=== PATIENT | female | born 1930 | race Caucasian/White ===

== ENCOUNTER 2016-09-07 17:40 | Inpatient (IN) | payer MEDICARE ==
[~2016-09-07] VITALS: Ht 167.6 cm; Wt 60.6 kg
[~2016-09-07 17:40] MED LIST: ASCO100089 PO; ASPI-973 PO; ATRV10T PO; CLOP75TA28 PO; LISI-571 PO; LUTE20TA PO; MULT1CAP33 PO
[2016-09-07 17:49] VITALS: BP 157/60; PULSE 19; PULSE 69; RESP 19; O2SAT 96
--- NOTE | 2016-09-07 18:00 | ED.REPORT ---
HPI-Trauma Minor / Fall Date of Service Sep 07, 2016 ED Provider: Dr. 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 Per EMS report the patient had no LOC and has a large hematoma to her R occiput. Pt reports headache but denies neck pain and extremity pain. History limited due to dementia. Nursing Notes Stated Complaint: FALL Chief Complaint: Multiple Trauma/Fall Nursing Notes Reviewed: Yes Allergies: Coded Allergies: Penicillins (Verified Allergy, Unknown, 12/02/14) Sulfa (Sulfonamide Antibiotics) (Verified Allergy, Unknown, UNKNOWN, ) Scheduled Ascorbic Acid (Vitamin C) 1,000 Mg Tab.chew 1,000 MG PO DAILY Aspirin (Aspirin) 81 Mg Tablet 81 MG PO DAILY Atorvastatin (Lipitor) 10 Mg Tab 10 MG PO DAILY Clopidogrel (Clopidogrel) 75 Mg Tablet 75 MG PO DAILY Lisinopril (Lisinopril) 5 Mg Tablet 5 MG PO HS Lutein (Lutein) 20 Mg Tablet 20 MG PO DAILY Multivitamin (Multivitamins) 1 Each Capsule 1 EACH PO DAILY General Time Seen by MD: 17:59 Chief Complaint Fall, Head injury Hx Obtained From: Patient, EMS Arrived By: Ambulance Onset Occurred: 16 - 30 minutes ago Symptom Duration: Since onset Context: Occurred at: Home injury Location: Head Quality: Painful Severity: Current: Moderate Associated with: Denies: Loss of consciousness, Neck pain, Shortness of breath Recent Healthcare: Recent hospitalization Risk Factors Head CT Imaging Inclusion Criteria: >/= 16 yo age GCS of 14 OR 15 Non Pentrating Injury Presentation w/in 24 hrs. Patient Presents WITHOUT: Loss of Conciousness, PROCEED W/ CONSIDERATIONS Consider Non Contrast CT for: >/= 60 yo Age RF Statements: Risk factors reviewed Past Medical History Past Medical History Dementia Anemia ST-segment elevation myocardial infarction hypertension Thrombocytopenia Past Surgical History Reports: Angioplasty, Cholecystectomy, Hysterectomy Smoking History Never Smoker Social History Alcohol Use: Denies alcohol use Drug Use: Denies drug use Other Social History: Good social support Ambulatory Status Independent Review of Systems Unable to Obtain ROS Mental status (Dementia) Musculoskeletal: Denies: Extremity pain, Neck pain Neurologic: Reports: Headache, Denies: Change LOC Physical Exam Initial Vital Signs Vital Signs (First) Date Time Temp Pulse Resp B/P Pulse Ox O2 Delivery O2 Flow Rate FiO2 09/07/16 17:49 36.8 69 19 157/60 96 Room Air Initial VS: Reviewed ENT: Mucous membranes moist, Conjunctiva normal, No scleral icterus Respiratory: Breath sounds normal, Clear to auscultation, No respiratory distress Cardiovascular: Regular rate & rhythm, Heart sounds normal, Intact distal pulses Abdomen / GI: Soft, Non-tender Skin: Warm, Dry, No cyanosis Psychiatric: Mood/affect normal, Behavior normal General/Constitutional: Awake, Alert Neck: Atraumatic Grimaces with palpation of neck. Head / Eyes: Normocephalic, PERRL Large R occipital hematoma. Back: Atraumatic, No midline vertebral tend Lower Extremity / Pelvis / MS: Atraumatic, Inspection NL, No swelling, Non- tender, No deformity, Neurologic intact, Vascular intact Neurologic: Speech NL, No motor deficits, No sensory deficits Hx of dementia Interpretation & Diagnostics Lab Results Interpretation Result Diagram: 09/07/16 1839 09/07/16 1839 Test 09/07/16 18:39 09/07/16 20:31 09/07/16 22:22 09/07/16 23:51 White Blood Count 8.6th/mm3 (3.8-10.1) Red Blood Count 3.81mil/mm3 (3.90-5.20) Hemoglobin 12.8g/dL (12.0-15.6) Hematocrit 38.6% (35.0-46.0) Mean Corpuscular Volume 101.3fL (81-100) Mean Corpuscular Hemoglobin 33.6pg (27.0-35.0) Mean Corpuscular Hemoglobin Concent 33.2% (32.0-37.0) Red Cell Distribution Width 12.8% (12.3-15.4) Platelet Count 133bil/L (150-400) Neutrophils (%) (Auto) 79.7% (40-74) Lymphocytes (%) (Auto) 9.8% (14-46) Monocytes (%) (Auto) 8.6% (4-12) Eosinophils (%) (Auto) 1.6% (0-5) Basophils (%) (Auto) 0.1% (0-3) Prothrombin Time 11.1sec (8.1-12.5) Prothromb Time International Ratio 1.04ratio Activated Partial Thromboplast Time 26.3sec (22.8-33.0) Sodium Level 140mEq/L (134-144) Potassium Level 4.1mEq/L (3.5-5.2) Chloride Level 103mEq/L (97-108) Carbon Dioxide Level 25mmol/L (18-29) Blood Urea Nitrogen 25mg/dL (8-27) Creatinine 1.05mg/dL (0.57-1.00) Estimat Glomerular Filtration Rate 72mL/min (>59) Glucose Level 107mg/dL (60-99) Calcium Level 9.0mg/dL (8.5-10.1) Total Bilirubin 0.2mg/dL (0.0-1.2) Aspartate Amino Transf (AST/SGOT) 15U/L (0-50) Alanine Aminotransferase (ALT/SGPT) 14U/L (0-32) Alkaline Phosphatase 66U/L (25-165) Total Protein 6.8g/dL (6.4-8.4) Albumin 3.7g/dL (3.4-5.0) Urine Color Yellow (YELLOW) Urine Appearance Clear (CLEAR,HAZY) Urine pH 6.5 (5.0-8.0) Urine Specific [place] 1.020 (1.003-1.035) Urine Protein Negativemg/dL (NEG,TRACE) Urine Glucose (UA) Negativemg/dL (NEGATIVE) Urine Ketones Negativemg/dL (NEGATIVE) Urine Occult Blood Negative (NEGATIVE) Urine Nitrite Negative (NEGATIVE) Urine Bilirubin Negative (NEGATIVE) Urine Urobilinogen Normalmg/dL (NORMAL) Urine Leukocyte Esterase Negative (NEGATIVE) Urine RBC 0-2/hpf (0-2) Urine WBC 0-5/hpf (0-5) Urine Epithelial Cells Occasional/hpf (NONE-MOD) Urine Crystals None seen (NONE SEEN) Urine Bacteria None/hpf (NONE-FEW) Urine Hyaline Casts None/lpf (NONE) Urine Granular Casts None seen (NONE SEEN) Urine Waxy Casts None seen (NONE SEEN) Urine Red Blood Cell Casts None seen (NONE SEEN) Urine White Blood Cell Casts None seen (NONE SEEN) Urine Mucus None seen (None Seen) Urine Trichomonas None seen (NONE SEEN) Urine Yeast None (NONE SEEN) Urinalysis Comment None Urine Culture Reflexed Not indicated Troponin T 0.042ug/L (0.0-0.011) Total Creatine Kinase 78U/L (21-215) Creatine Kinase MB 4.4ng/mL (0.0-5.3) Creatine Kinase MB % % (0.0-5.0) General Lab Results Interp 1: Labs reviewed Pulse Oximetry Interpretation Pulse Oximetry: Pulse Ox normal (96), On room air ECG Interpretation ECG Interpretation: ST elevation of 1 mm in lead III. Global T wave inversion and ST depression new from prior ECG 04/27/16. Time: 21:33 Interpreted by: ED physician Normal ECG Interpretation: Normal rate (80), Normal sinus rhythm ECG Interpretation: NSR with a rate of 82. ST elevation in lead III. Voltage criteria for STEMI still not met. Whole clinical picture still suspicious for cardiac event. Time: 23:03 Interpreted by: ED physician X-Ray Chest Interpretation View: Portable, 1 view Interpretation / Wet Read by: Wet read ED physician NL X-Ray Chest Findings: No acute disease (`) X-Ray Interpretation X-Ray Ordered: Hip left Interpretation / Wet Read by: Wet read ED physician Interpretation: Normal exam, No fracture/dislocation CT Head Interpretation CT Head Impression: 1. No acute intrcranial process. 2. Moderate atrophy and chronic microvascular ischemic changes. Study: Head CT no contrast Interpretation / Wet Read by: Interpret - ED physician CT C-Spine Interpretation CT C-spine Impression: 1. No visualized fracture. Study type: CT no contrast Interpretation / Wet Read by: Interpret - Radiologist Re-Eval/Medical Decision Med Decision/Clinical Course By all accounts aside from the fact that she is not having chest pain Mrs. Quintero is having an acute myocardial infarction. She has ST elevation in lead 3 as well as AVR. She has impressive ST depression/reciprocal changes in V5 V6 1 and aVL. Her troponin is trending up. What complicates this is that she is having absolutely no chest pain. However you can certainly have silent myocardial ischemia. I have been in constant communication with Dr. Meléndez. I have faxed him several EKGs as well as the troponin trends. The plan now is to admit her to the ICU. ICU recommended due to the fact that she sustained rather significant blunt head injury and she has a subcutaneous hematoma and were going to start her on heparin. We are going to hold off on Plavix because she did fall and hit her head as described. We will give her aspirin. Her troponin is going to be trended throughout the night. Dr. Meléndez will be made aware of the troponins. I consulted with our hospitalist Dr. Lobato. She has accepted Mrs. Quintero for admission. Source of Hx: Old records Re-Evaluation/Progress #1: Time of Eval: 20:44 Re-Evaluation/Progress Note: Pt unable to walk. Awaiting UA and ECG. Re-Evaluation/Progress #2: Time of Eval: 21:49 Re-Evaluation/Progress Note: Pt's is now in the room. He states that she fell hard on her L hip. Pt with TTP of L hip. Updated of ECG findings. Pt denies any chest pain. Re-Evaluation/Progress #3: Time of Eval: 22:12 Re-Evaluation/Progress Note: Pt's now reports that the patient has been seen by her PCP for exertional CP. He believes that the fall today was a mechanical fall. Consultation #1: Referral / Consult Name: Dusty Meléndez MD Consulted With: Cardiology Call Returned at: 21:49 Senior Android Software Engineer: Will see patient, Agrees with plan Consultation #2: Referral / Consult Name: Dusty Meléndez MD Consulted With: Cardiology Call Returned at: 12:41 Note: Heparin, ASA plan, repeat trop and call back Consultation #3: Referral / Consult Name: Dusty Meléndez MD Consulted With: Cardiology Call Returned at: 23:30 Note: Trop has returned. Admit to ICU repeat trop in 4 hours and have hospitalist call with results. Consultation #4: Referral / Consult Name: Angie Lobato DO Consulted With: Hospitalist Call Returned at: 23:33 Senior Android Software Engineer: Will see patient, Agrees with eval, Agrees with plan, Accepts admit Counseled Regarding: Diagnosis, Lab results, Need for admission Discharge & Departure Impression: Primary Impression: Acute coronary syndrome Additional Impressions: Weakness generalized Scalp contusion Encounter type: initial encounter Qualified Code: S00.03XA - Contusion of scalp, initial encounter Fall from ground level Blunt head trauma Encounter type: initial encounter Qualified Code: S09.8XXA - Other specified injuries of head, initial encounter Disposition: ADMITTED TO HOSPITAL Discharge Condition All VS Reviewed: Yes Referrals: Manny Montana MD (PCP) Crit Care Except Billable Proc Time Spent: 30-74 minutes Services Performed: Patient management by me, Time spent at bedside, Reviewing test results, Reviewing imaging, Discussing patient care, Documentation in record, Time with fam/surrogate Scribe Attestation Portions of this note were transcribed by Mindy Quintero. I, (Dr. Candelario) personally performed the history, physical exam and medical decision-making; I reviewed and confirmed the accuracy of the information in the transcribed note. Signed by: Mindy Quintero. Shanell, 09/07/16, [id number] copies to: Manny Montana MD, Todd P DO Sep 07, 2016 18:00 Mindy Quintero Sep 07, 2016 18:08
[2016-09-07 18:58] LABS: BASOPHILS % (AUTO) 0.1 % (0-3); EOSINOPHILS % (AUTO) 1.6 % (0-5); MONOCYTES % (AUTO) 8.6 % (4-12); Mean Corpuscular Hemoglobin 33.6 pg (27.0-35.0); Mean Corpuscular Volume 101.3 fL (81-100); NEUTROPHILS % (AUTO) 79.7 % (40-74); Platelet Count 133 bil/L (150-400)
[2016-09-07 19:15] LABS: INR 1.04 ratio
[2016-09-07 20:00] VITALS: PULSE 73; RESP 18; O2SAT 97
[2016-09-07 20:50] LABS: APPEARANCE,URINE CLEAR (CLEAR,HAZY); COLOR,URINE YELLOW (YELLOW); OCCULT BLOOD,URINE NEGATIVE (NEGATIVE); PH,URINE 6.5 (5.0-8.0); UROBILINOGEN,URINE NORMAL (NORMAL)
[2016-09-07 21:00] VITALS: PULSE 77; RESP 16; O2SAT 99
[2016-09-07 22:20] VITALS: BP 141/77; PULSE 80; RESP 16; O2SAT 99
[2016-09-07] MEDS ORDERED: Heparin 5,000 Unit/mL Inj IVPUSH PRN (22:45)
[2016-09-07] MEDS ORDERED: Heparin 5,000 Unit/mL Inj IVPUSH ONE (22:45)
[2016-09-07] MEDS: Heparin 25K Unit/500mL 0.45 NS 25,000 UNIT in IV Premix 1 EACH IV SCH (23:16)
[2016-09-07] MEDS ORDERED: Alum-Mag Hydrox-Simeth 30 mL Suspension PO PRN (23:45)
[2016-09-07] MEDS ORDERED: Ondansetron 2 mg/mL 2 mL Inj IVPUSH PRN (23:45)
[2016-09-07] MEDS ORDERED: Senna-Docusate 8.6-50 mg Tablet PO PRN (23:45)
[2016-09-07] MEDS ORDERED: Acetaminophen IV 1,000 MG in IV Premix 1 EACH IV PRN (23:45)
[2016-09-07] MEDS ORDERED: Polyethylene Glycol (PEG) 17 Gm Powder PO PRN (23:45)
[2016-09-07 23:47] VITALS: BP 142/66; PULSE 69; RESP 16; O2SAT 99
[2016-09-08] VITALS (8 sets, daily range): BP systolic 113–137; BP diastolic 52–87; PULSE 58–103; RESP 15–21; O2SAT 96–100
[2016-09-08 00:43] LABS: Creatine Kinase 78 U/L (21-215)
--- NOTE | 2016-09-08 01:41 | PCM.HPMED ---
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 Per , patient appears to have tripped on the edge of carpet, while he was looking away. Patient did not express head pain or chest pain. noticed blood on her neck and realized she had hit her head, decided to call EMS. denies any change in mental status after realizing she had fallen. Per EMS report the patient had no LOC and has a large hematoma to her R occiput. Patient had complained of some left leg pain and head pain in ED, although at time of this interview, she denies having any headaches, leg pain or chest pain. History is limited to husbands recollection of events, due to patient not able to recall incident. not aware of any cardiology follow up after last discharge. Patient was recently seen by her PCP on 08/29, no mention of cardiology appointment. In the ED, vitals: T36.8, P69, R19, BP157/60, 96% on RA. Labs significant for troponin 0.035, creatinine 1.05. UA, CXR, CT head negative. Xray of left hip with no fractures. 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 Dr. Meléndez to be called with any significant findings. Review of Systems: Comprehensive ROS all negative otherwise noted in HPI. Allergies Coded Allergies: Penicillins (Verified Allergy, Unknown, 12/02/14) Sulfa (Sulfonamide Antibiotics) (Verified Allergy, Unknown, UNKNOWN, ) Home Medications Ascorbic Acid (Vitamin C) 1,000 Mg Tab.chew 1,000 MG PO DAILY Aspirin (Aspirin) 81 Mg Tablet 81 MG PO DAILY Atorvastatin (Lipitor) 10 Mg Tab 10 MG PO DAILY Clopidogrel (Clopidogrel) 75 Mg Tablet 75 MG PO DAILY Lisinopril (Lisinopril) 5 Mg Tablet 5 MG PO HS Lutein (Lutein) 20 Mg Tablet 20 MG PO DAILY Multivitamin (Multivitamins) 1 Each Capsule 1 EACH PO DAILY PMH Dementia Anemia ST-segment elevation myocardial infarction hypertension Thrombocytopenia Surgical History Angioplasty Cholecystectomy Hysterectomy Family History Father and sister with heart issues Social History Hx Alcohol Use: No Hx Substance Use: No Hx Tobacco Use: No Smoking Status: Never Smoker Living Arrangement: with Family Exam Vital Signs Vital Sign - Last Date Time Temp Pulse Resp B/P Pulse Ox O2 Delivery O2 Flow Rate FiO2 09/07/16 23:47 69 16 142/66 99 Room Air 09/07/16 17:49 36.8 Exam GEN: Alert oriented only to self. No acute distress. HEENT: Right occipital hematoma, no tenderness to palpation, PERRL, EOMI, sclera anicteric, normal conjunctiva, Moist mucous membranes Neck: Supple with good ROM, no posterior midline tenderness Lungs: CTAB, breath sounds bilaterally, in no respiratory distress CV: RRR, normal S1, S2, no murmurs, rubs or gallops, peripheral pulses intact ABD: Soft, non-tender, normal active bowel tones MSK:No midline tenderness. Ext: No swelling, no edema Skin: Warm, dry and intact. No cyanosis. Large area of ecchymosis on right base of thumb, ecchymosis on left knee, old ecchymosis on posterior left hip Neuro: Dysarthria. 5/5 strength and sensation intact throughout lower extremities Psych: Normal mood and affect. Lab and Diagnostics Result Diagram: 09/07/16 1839 09/07/16 1839 X-Rays, CTs and MRIs DATE OF SERVICE: 04/27/16 0741 PROCEDURE: X-RAY CHEST ONE VIEW, PORTABLE ([id number]) IMPRESSION: No acute pulmonary process. Dictated by: Elizabeth Joseph M.D. on 04/27/2016 at 8:46 DATE OF SERVICE: 04/28/16 1306 PROCEDURE: CT BRAIN WITHOUT CONTRAST ([id number]) INDICATIONS: Fall; struck the back of her head IMPRESSION: 1. No acute intracranial finding. 2. Findings likely associated with chronic microvascular ischemic changes. Dictated by: Ela Woods M.D. on 04/28/2016 at 13:44 X-Ray Ordered: Hip left Interpretation / Wet Read by: Wet read ED physician Interpretation: Normal exam, No fracture/dislocation CT C-spine Impression: 1. No visualized fracture. Study type: CT no contrast Interpretation / Wet Read by: Interpret - Radiologist 12-lead ECG ECG Interpretation: ST elevation of 1 mm in lead III. Global T wave inversion and ST depression new from prior ECG 04/27/16. Time: 21:33 Interpreted by: ED physician Normal ECG Interpretation: Normal rate (80), Normal sinus rhythm ECG Interpretation: NSR with a rate of 82. ST elevation in lead III. Voltage criteria for STEMI still not met. Whole clinical picture still suspicious for cardiac event. Time: 23:03 Interpreted by: ED physician Assessment & Plan Patient is a 85 year old female with a history of dementia, anemia, hypertension , thrombocytopenia, a recent hospitalization 04/30/16 due to STEMI on dual antiplatelet therapy, who presents to the ED via EMS with head injury following a GLF at home. STEMI, present on admission. Acute. - Plavix and ASA held due to head hematoma, on heparin gtt - telemetry - NPO - Cardiology, Dr. Meléndez following and recommends CCU status based on elevated troponin and ECG findings - Trend troponin (next one to be at 2:30am with repeat ECG) - Repeat ECG at 2:30 am pending - Possible catheterization based on above findings - hgba1c pending, lipid panel as per EMR 04/2016 - cont statin Elevated troponin, present on admission. Acute. - initially at 0.035, now 0.042, CKMB 44 - trending as above Head hematoma, present on admission. Acute. - CT head negative for any acute process - Plavix and ASA held - monitor closely for worsening of hematoma due to being on heparin gtt Acute kidney injury, present on admission. Acute. - baseline creatinine 0.8 - lisinopril held - repeat BMP in am Advanced dementia, present on admission. Stable. - UA, CT head negative - DDx: Alzheimer's, vascular, Lewy body and Pick - Sister with Pick's disease, patient has not been diagnosed formally by a neurologist, family to seek neurology consult as an outpatient from PCP - patient not currently under therapy Macrocytosis, present on admission. Unknown acuity. - repeat CBC in am Hx of STEMI - continue atorvastatin - lisinopril held due to acute kidney injury DVT prophy: Heparin gtt GI prophy: not indicated CODE STATUS: FULL Dispo: Patient will be admitted with inpatient status with expectation of inpatient therapy for more than 2 midnights. Pain Evaluation: Adequate Pain Control VTE Prophylaxis: Other (Heparin ggt) Resuscitation Status: CPR: Attempt Resuscitation Attending Statement The patient was seen and examined together with house staff on 09/08/2016 and I agree with the history, exam and plan as outlined in the note above. Malaika Morel DO Sep 08, 2016 00:05 Angie Lobato DO Sep 08, 2016 03:09
--- NOTE | 2016-09-08 04:49 | NUR ---
admit note pt admit done per admit rn, pt alert, coop most of shift, pleasant, navarro weakly, pt knows her first name but not last name/place/year, pt laughs when asked a question she does not know the answer to, pt coop until approx 0400 after attempting to void per bp per br orders, pt unable to void, pt noted to have pulled out her saline lock and had feet hanging over side of bed, pt stated she had to void, pt bleeding from saline lock site cleaned up and pt helped to [facility] where she was able to void, depends on, pt denies cp, tele= sb/sr, occ WAP noted, three episodes of hr up to 130's, self resolving and pt asymptomatic, bp stable, denies n/v, npo, bt present, no bm, denies sob, ls-cl, ra sats upper 90's, resp rate in teens, heparin gtt per cardiac protocol, pt came in with bruised to left thumb, left elbow, left knee, right eye and right inner thigh, mrsa swab sent to lab, resident and desolderer aware of pt's rhythm, ekg's, and lab results-especially troponin and ck/ckmb, see ccu flow sheet, cont monitoring, plan:npo, am ck/ckmb/trop/ekg Addendum: 09/08/16 at 0505 by KIRT MATHEW RN safety frequent checks per rn, bed alarm on,
[2016-09-08 05:30] LABS: BASOPHILS % (AUTO) 0.2 % (0-3); EOSINOPHILS % (AUTO) 0.2 % (0-5); MONOCYTES % (AUTO) 9.7 % (4-12); Mean Corpuscular Hemoglobin 33.5 pg (27.0-35.0); Mean Corpuscular Volume 100.6 fL (81-100); NEUTROPHILS % (AUTO) 74.6 % (40-74); Platelet Count 133 bil/L (150-400)
[2016-09-08 06:00] LABS: TROPONIN T 0.18 ug/L (0.0-0.011)
--- NOTE | 2016-09-08 06:25 | NUR ---
am labs/ekg lab support technician aware of cardiac enzyme, troponin and ekg results, no new orders, no c/o cp per pt, pt's neuros remain the same all night- at baseline, see previous note,
--- NOTE | 2016-09-08 12:03 | PCM.PNMED ---
Subjective Date of Service Sep 08, 2016 Subjective - Pt seen and examined bed side. She is not in distress. AAO x 1 - Denies chest pain, shortness of breath. Exam Vital Signs Vital Sign - Last Date Time Temp Pulse Resp B/P Pulse Ox O2 Delivery O2 Flow Rate FiO2 09/08/16 08:00 36.6 58 15 116/62 100 Room Air Intake and Output 09/07/16 09/07/16 09/08/16 Cumulative From/Thru 15:00 23:00 07:00 09/07/16 17:49 - 09/08/16 05:03 Intake Total 72 ml 72 ml Output Total 350 ml 350 ml Balance -278 ml -278 ml Intake Oral 0 ml 0 ml IV Total 72 ml 72 ml Output Urine Total 350 ml 350 ml # Bowel Movements 0 0 Exam GEN: Alert oriented only to self. No acute distress. HEENT: Right occipital hematoma, no tenderness to palpation, PERRL, EOMI, sclera anicteric, normal conjunctiva, Moist mucous membranes Neck: Supple with good ROM, no posterior midline tenderness Lungs: CTAB, breath sounds bilaterally, in no respiratory distress CV: RRR, normal S1, S2, no murmurs, rubs or gallops, peripheral pulses intact ABD: Soft, non-tender, normal active bowel tones MSK:No midline tenderness. Ext: No swelling, no edema Skin: Warm, dry and intact. No cyanosis. Large area of ecchymosis on right base of thumb, ecchymosis on left knee, old ecchymosis on posterior left hip Neuro: Dysarthria. 5/5 strength and sensation intact throughout lower extremities Psych: Normal mood and affect. IVs and Medications Medications Reviewed: Medications were reviewed in detail Lab and Diagnostics Result Diagram: 09/08/16 0510 09/08/16 0230 X-Rays, CTs and MRIs DATE OF SERVICE: 04/27/16 0741 PROCEDURE: X-RAY CHEST ONE VIEW, PORTABLE ([id number]) IMPRESSION: No acute pulmonary process. Dictated by: Elizabeth Joseph M.D. on 04/27/2016 at 8:46 DATE OF SERVICE: 04/28/16 1306 PROCEDURE: CT BRAIN WITHOUT CONTRAST ([id number]) INDICATIONS: Fall; struck the back of her head IMPRESSION: 1. No acute intracranial finding. 2. Findings likely associated with chronic microvascular ischemic changes. Dictated by: Ela Woods M.D. on 04/28/2016 at 13:44 X-Ray Ordered: Hip left Interpretation / Wet Read by: Wet read ED physician Interpretation: Normal exam, No fracture/dislocation CT C-spine Impression: 1. No visualized fracture. Study type: CT no contrast Interpretation / Wet Read by: Interpret - Radiologist 12-lead ECG ECG Interpretation: ST elevation of 1 mm in lead III. Global T wave inversion and ST depression new from prior ECG 04/27/16. Time: 21:33 Interpreted by: ED physician Normal ECG Interpretation: Normal rate (80), Normal sinus rhythm ECG Interpretation: NSR with a rate of 82. ST elevation in lead III. Voltage criteria for STEMI still not met. Whole clinical picture still suspicious for cardiac event. Time: 23:03 Interpreted by: ED physician Assessment & Plan 85 year old female with a history of dementia, anemia, hypertension, thrombocytopenia, a recent hospitalization 04/30/16 due to STEMI on dual antiplatelet therapy, who presents to the ED via EMS with head injury following a GLF at home. STEMI, present on admission. Acute. - telemetry - Trend troponin (next one to be at 2:30am with repeat ECG) - Repeat ECG at 2:30 am pending - Discussed with Dr Meléndez. Started on Aspirin, and Plavis. No evidence of bleeding. Possible catheterization may be tomorrow. - cont statin Elevated troponin, present on admission. Acute. - Troponin trend: 0.18 <-- 0.134 <-- 0.042 <-- 0.035 - on Heparin drip Head hematoma, present on admission. Acute. - CT head negative for any acute process - Plavix and ASA restarted after discussing with Dr Meléndez. - monitor closely for worsening of hematoma due to being on heparin gtt Acute kidney injury, present on admission. Acute. - baseline creatinine 0.8 - lisinopril held - repeat BMP in am Advanced dementia, present on admission. Stable. - UA, CT head negative - DDx: Alzheimer's, vascular, Lewy body and Pick - Sister with Pick's disease, patient has not been diagnosed formally by a neurologist, family to seek neurology consult as an outpatient from PCP - patient not currently under therapy Hx of STEMI - continue atorvastatin - lisinopril held due to acute kidney injury DVT prophy: Heparin gtt GI prophy: not indicated CODE STATUS: FULL Dispo: Patient will be admitted with inpatient status with expectation of inpatient therapy for more than 2 midnights. Pain Evaluation: Adequate Pain Control GI Prophylaxis: Not indicated VTE Prophylaxis: Other (Heparin ggt) Resuscitation Status: CPR: Attempt Resuscitation Mahesh Campbell MD Sep 08, 2016 12:03
--- NOTE | 2016-09-08 15:12 | DRSVH ---
PROCEDURE: CT BRAIN WITHOUT CONTRAST ([id number]) INDICATIONS: fall, head injury TECHNIQUE: Noncontrast 4.5 mm thick angled axial sections acquired from the foramen magnum to the vertex, with c oronal reformats. COMPARISON: [facility], CT, CT BRAIN WO CON, 04/28/2016, 13:17. FINDINGS: Image quality: Excellent. CSF spaces: Basal cisterns are patent. No extra-axial fluid collections. The ventricles are symmet rojelio in size and shape. Brain: No intracranial bleeds or masses. There is cerebral volume loss for age, with resultant vent ricular and sulcal prominence. There are periventricular and deep white matter chronic small vessel ischemic changes. There is intracranial internal carotid artery atherosclerosis. Skull and face: Calvarium and visualized facial bones appear intact, without suspicious lesions. Sinuses: Visualized sinuses and mastoids are clear. IMPRESSION: 1. No acute intracranial process. 2. Moderate atrophy and chronic microvascular ischemic changes. Dictated by: Elizabeth Joseph M.D. on 09/07/2016 at 19:15 Approved by: Elizabeth Joseph M.D. on 09/07/2016 at 19:16
--- NOTE | 2016-09-08 15:12 | DRSVH ---
PROCEDURE: CT CERVICAL SPINE WITHOUT CONTRAST ([id number]) INDICATIONS: fall, head injury, dementia TECHNIQUE: Noncontrast 3 mm thick sections acquired from the skull base to the T4 level. Sagittal and coronal r eformats were then constructed. For radiation dose reduction, the following was used: automated exp osure control, adjustment of mA and/or kV according to patient size. COMPARISON: [facility], CT, CT BRAIN WO CON, 09/07/2016, 18:31. FINDINGS: Image quality: Excellent. Bones: No fractures or dislocations. Visualized superior ribs are intact. Soft tissues: Prevertebral soft tissues are normal in thickness. No paravertebral hematomas. No ap ical pneumothoraces. IMPRESSION: No visualized fracture. Dictated by: Elizabeth Joseph M.D. on 09/07/2016 at 19:13 Approved by: Elizabeth Joseph M.D. on 09/07/2016 at 19:15
--- NOTE | 2016-09-08 15:13 | DRSVH ---
PROCEDURE: X-RAY CHEST ONE VIEW, PORTABLE ([id number]) INDICATIONS: 85 old woman with chest pain and fall. TECHNIQUE: One view of the chest was acquired. COMPARISON: [facility], CR, XR CHEST 1VW (PORTABLE), 04/27/2016, 7:46. FINDINGS: Surgical changes and devices: None. Lungs and pleura: No pleural effusions or pneumothorax. Lungs are clear. Mediastinum: Mediastinal contours appear normal. Heart size is normal. Bones and chest wall: No suspicious bony lesions. Overlying soft tissues appear unremarkable. IMPRESSION: No acute cardiopulmonary disease. Dictated by: Darlene Langford M.D. on 09/08/2016 at 8:50 Approved by: Darlene Langford M.D. on 09/08/2016 at 8:52
--- NOTE | 2016-09-08 15:13 | DRSVH ---
PROCEDURE: X-RAY PELVIS W/LAT HIP (LT) ([id number]) INDICATIONS: fall, hip pain TECHNIQUE: AP pelvis with lateral view(s) of the left hip(s). COMPARISON: None. FINDINGS: Bones: No fractures or dislocations. Pelvic ring appears intact. No suspicious bony lesions. Soft tissues: The visualized bowel gas pattern is normal. No suspicious soft tissue calcifications. IMPRESSION: No fracture or dislocation. If clinical symptoms persist or clinical suspicion for patho logy is high, a repeat examination in 7-10 days, or advanced imaging such as CT or MRI is suggested f or further evaluation. Dictated by: Darlene Langford M.D. on 09/08/2016 at 8:48 Approved by: Darlene Langford M.D. on 09/08/2016 at 8:50
--- NOTE | 2016-09-08 15:15 | DRSVH ---
[facility] [address] [place] [address] Echocardiogram Report Name: MIKI SAENZ Siva e: 09/08/2016 Height: 66 in Hospital Exam Location: [facility] Weight: 13 3 lb Gender: Female BSA: 1.7 m2 : 1930 Age: 85 yrs BP: 116/62 mmHg Reason For Study: CAD Ordering Physician: HOSPITALIST [facility] Performed By: Oma Farris Referring Physician: Dr. Manny Montana Interpretation Summary Left ventricular systolic function is moderate to severely reduced. Left ventricular ejection fraction is estimated to be 25%. Compared to the prior exam, left ventricular function is significantly decreased. There is a large sized apical, septal, anteroseptal, inferior, and posterior wall motion abnormality with hypokinesis to akinesis of the segments. There are new LV wall motion abnormalities. Assessment of diastolic parameters suggests a pseudonormalization pattern, consistent with elevated filling pressures. The right ventricle grossly appears normal in size with probable normal systolic function. The left atrium is mildly dilated. Right atrial size is normal. There is mild to moderate mitral regurgitation. Compared to the prior echo study, there has been an increase in the severity of mitral regurgitation. There is no other significant valvular heart disease. The aortic root is normal size. Procedure: A two-dimensional transthoracic echocardiogram with color flow and Doppler was performed. The study quality was technically good. Comparison is made with the echocardiogram of 04-29-16. The heart rate ranged between 56 -68 bpm during the study. Left Ventricle: The left ventricle is normal in size. There is normal left ventricular wall thickness. Left ventricular systolic function is moderate to severely reduced. Left ventricular ejection fraction is estimated to be 25%. Compared to the prior exam, left ventricular function is significantly decreased. There is a large sized apical, septal, anteroseptal, inferior, and posterior wall motion abnormality with hypokinesis to akinesis of the segments. There are new LV wall motion abnormalities. Assessment of diastolic parameters suggests a pseudonormalization pattern, consistent with elevated filling pressures. Right Ventricle: The right ventricle grossly appears normal in size with probable normal systolic function. Atria: The left atrium is mildly dilated. Right atrial size is normal. The interatrial septum is intact with no evidence for an atrial septal defect. Mitral Valve: The mitral valve is grossly normal. There is mild to moderate mitral regurgitation. Compared to the prior echo study, there has been an increase in the severity of mitral regurgitation. Aortic Valve: The aortic valve opens well. There is trace aortic regurgitation. Tricuspid Valve: The tricuspid valve is normal in structure and function. No tricuspid regurgitation. Pulmonic Valve: The pulmonic valve is not well visualized. There is trace pulmonic regurgitation. There is no other significant valvular heart disease. Great Vessels: The aortic root is normal size. The dimensions of the ascending aorta are normal. The IVC is of normal diameter and collapses greater than 50% with a sniff. This suggests a low right atrial pressure of 3 mm Hg. Pericardium/ Pleura There is no pericardial effusion. There is no pleural effusion. I WMSI = 1.94 % Normal = 38 There is a la rge sized apical, septal, anteroseptal, inferior, and posterior wall motion abnormality w ith hypokinesis to akinesis of t he segments. Segments Size X - Cannot 1 - Normal 2 - 3 - Akinetic 4 - 1-2 small Interpret Hypokinetic Dyskinetic 3-5 moder ate 5 - 6-14 large Aneurysmal 15-16 diffu se MMode/2D Measurements & Calculations LVIDd: 5.3 cm LA dimension: 3.5 cm RA long axis: 4.6 cm Ao root diam LVIDs: 4.6 cm LA A2 area: 18.9 cm RA area: 14.9 cm FS: 14.1 % RA vol: 41.3 ml Aortic Jxn: 2.4 cm IVSd: 0.97 cm LA A4 area: 18.0 cm asc Aorta Diam LVPWd: 0.70 cmLA length (vol) RA : 24.6 ml/m RVDd major: 4.3 cm Ao Arch Diam (Prox LA vol: 58.1 ml Trans): 2.7 cm LA vol index IVC diam: 1.6 cm EDV(MOD-sp2) LV quiñones. diameter/BSA LV sys. diameter/BSA RVD1 (basal) : 114.9 ml (cm/m^2): 3.2 (cm/m^2): 2.7 : 3.6 cm RVD2 (mid) : 2.9 cm Doppler Measurements & Calculations Ao V2 max MV E max jg MV E/A: 1.0 PA V2 max : 132.5 cm/sec : 75.2 cm/sec Med Peak E' Jg : 66.4 cm/sec Ao max PG MV A max jg PA mean PG : 7.0 mmHg : 72.5 cm/sec E/E' med: 21.0 Ao mean PG MV P1/2t: 45.9 msec Lat Peak E' Jg PA Accel Time : 3.5 mmHg : 0.19 sec E/E' lat: 10.8 E/e' average: 15.9 MV A dur: 0.12 sec MV dec time MV P1/2t max jg Ao V2 mean PA V2 mean : 0.15 sec : 85.5 cm/sec : 48.4 cm/sec MVA(P1/2t): 4.8 cm2 Ao V2 VTI: 30.8 cm Reading Physician:YESI
--- NOTE | 2016-09-08 16:06 | NUR ---
Social Work: Assessment. D&A: See initial assessment. SHIPPING WEIGHER reviewed EMR, which states pr is at [facility] with non-stemi ACS fall. Pt primary insurance is [employer]; PCP is Manny Montana MD. Pt readmit score has not yet been assessed. SHIPPING WEIGHER met with pt and family at bedside and explained SHIPPING WEIGHER role. Pt georgiana reports that they lives in a modular home with 2 external steps and no internal steps. Pt uses a walker and a cane at base and relies on family for transportation. Pt's is her primary caregiver; there is local family support, if needed. Pt does not endorse any hx of SNF admission; pt has had H.H. with [facility] and does not wish to use this provider again. Pt and family provided with SNF/ H.H. choice list. P: Developing. SHIPPING WEIGHER to follow for d/c planning including SNF/ H.H. referral and additional needs. ELAINE Bravo Addendum: 09/08/16 at 1611 by BRIAN RITCHIE Amended: Links added.
--- NOTE | 2016-09-08 17:10 | NUR ---
Mentation/Tele/output/Activity Patient follows commands, but only oriented to name. Her speech is sometimes unintelligible-- this is not new. Tele has been SB-SR, 50s-70s. Denies chest pain. Plavix and ASA given as ordered. Cardiac Heparin gtt running per protocol. Voiding per BSC. Patient is unable to void on bedpan. 2 person assist to BSC. Patient is weak. Adjusting self in bed, but assisting to turn. Spouse and daughters at bedside, updated on care. Continuing with POC.
--- NOTE | 2016-09-08 20:33 | CONS ---
[address] [address] CONSULTATION REPORT PATIENT: MIKI SAENZ I : 1930 MR#: [id number] ADMIT: 09/08/2016 JOB ID: [id number] CARDIOLOGY CONSULTATION NOTE--INITIAL INPATIENT EVALUATION: DATE OF EVALUATION: Thursday, September 08, 2016. CONSULTING PHYSICIAN: Cardiology--Dusty Meléndez MD. PROBLEMS: 1. Fall (trauma). a. Presented to emergency department, September 07, 2016, after apparent mechanical fall (tripped on carpet). b. Contusion, right periorbital; and left occipital scalp hematoma. 2. Acute coronary syndrome (ACS). a. No chest pain. b. Abnormal ECG--Atypical ECG; and note incidental finding on admission ECG when patient admitted for weakness. c. Elevated troponin. 3. Coronary artery disease (CAD). a. STEMI--acute inferior myocardial infarction, April 27, 2016, b. PCI (April 27, 2016)--occluded culprit mid RCA. Revascularized with distal bare-metal stent, 2.5 x 23; and proximal stent, 2.75 x 23; and note residual lesions and severely diffusely diseased RCA. c. CHF-Csguh-Hjzitb CAD, including severely diffusely diseased LAD (functionally occluded with JOEL-1 flow); and 80% proximal circumflex LCX lesion. CORONARY ARTERY DISEASE RISK FACTORS: 1. Hypertension. 2. No history of diabetes. 3. No history of treated hyperlipidemia--On statin after April. 4. Nonsmoker. 5. No family history of premature coronary disease. OTHER PROBLEMS: Alzheimer's Disease--Severe; but she lives independently with and walking, go outside the house. CHIEF COMPLAINT: Called by the Emergency Department because of abnormal ECG. HISTORY OF PRESENT ILLNESS: EMERGENCY DEPARTMENT COURSE: I was called initially by the Emergency Department about this 85-year-old woman after she presented last night and was evaluated after a fall. The relates clearly that it appeared to be a mechanical fall, not syncope. She tripped when she turned in the kitchen and tripped over a "strip" between the linoleum floor and the carpet. She was not unconscious. She hurt her left hip, her right periorbital area and her right occiput. She came to the Emergency Department. 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 There was no chest pain, and no consideration of cardiac issues until an ECG was incidentally obtained as a routine admission test because she was to be admitted because too frail and weak to go home. ECG showed lateral ST depression with subtle inferior ST-elevation in lead LIII. Troponin was then evaluated and found to be slightly elevated. HOSPITAL COURSE: The patient was subsequently admitted to telemetry unit. She has had no chest pain, or other overt cardiac problems. PAST CARDIAC HISTORY: She has known CAD which first presented, April 27, 2016. At that time, she did have clear-cut chest discomfort and clear-cut inferior ST elevation. Initially, there was consideration of management options including because of her severe dementia. Ultimately, she was taken to the Catheterization Laboratory. The mid right coronary artery was occluded. Two bare-metal stents were placed and flow was reestablished in the artery. However, there was severe diffuse disease and residual lesions. Additionally, there was severe coronary disease involving the LAD diffusely; and the circumflex as well. She did well afterwards; and there was consideration of proceeding with intervention to attempt to open the severely diseased LAD. It appears she did not return to clinic; and she did well until several days before admission when she had a single episode of chest discomfort walking out of a [employer] store. She saw her primary doctor several days later who gave her nitroglycerin. She has not used NTG SL; nor had further chest discomfort. Regarding other possible underlying vascular disease, there is no history of CVA or current symptoms of TIA. No claudication. Regarding dual antiplatelet therapy, there was concern because of her recent trauma; but she appears to have remained on Plavix long term care administrator after the bare-metal stent with no problem. She and her report no current bleeding symptoms, no anticipated surgery; but there was initially some question of the ability to make sure of her having Plavix without fail, so bare-metal stents were used in April. ALLERGIES: 1. PENICILLIN. 2. SULFA. (Are reported) 3. LISINOPRIL--intolerance; she reports a dry cough has continued to take lisinopril. MEDICATIONS: 1. ASA 81 mg. 2. Plavix 75 mg--continued since bare metal stent. 3. Lipitor 10 mg daily. 4. Lisinopril 5 mg q.h.s. 5. Lutein 20 mg daily. 6. Multivitamin. 7. Ascorbic acid 1000 mg daily. PAST MEDICAL HISTORY: 1. History of thrombocytopenia without further details. 2. History of anemia. REVIEW OF SYSTEMS: I questioned her about a 13-point review of systems, which is unremarkable, and noncontributory, or negative except as noted, including: No history of thyroid disorder. No history of lung disorder including shortness of breath, asthma, or wheezing. He reports no GI disease including indigestion, ulcer, hepatitis or jaundice. Cardiac--The reports no symptoms of heart failure such as exertional dyspnea, nocturnal dyspnea, or edema. He reports no history of known arrhythmia, or symptoms of arrhythmia, such as tachy palpitations, presyncope, or syncope. She is minimally active physically beyond walking but apparently has no effort limitation, or effort-related symptoms. PERSONAL AND SOCIAL HISTORY: Cigarettes--lifetime nonsmoker. Alcohol-- reports she does not use alcohol currently. 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 Family--Her , daughters, and granddaughters are present. FAMILY HISTORY: Noncontributory regarding premature coronary disease. PHYSICAL EXAMINATION: General appearance: Pleasant elderly woman who is comfortable in the hospital room; and she has evident severe dementia. She is mumbling but pleasant. The family thinks she is not quite as alert here in the hospital as she has been generally. Vital signs: Blood pressure 120/52. Heart rate 60, regular, in sinus rhythm on telemetry. Respiratory rate 17 with O2 saturation 99% on room air. Afebrile. Weight 60.6 kg only. Neurologic and mental status: No overt focal neurologic defect noted. Affect is noted consistent with substantial dementia. HEENT: PERRL. Conjunctivae pink. Sclerae not icteric. Mouth and mucous membranes intact. Neck: Carotid upstroke intact bilaterally without bruit. Jugular venous pressure normal. No palpable thyromegaly. No palpable cervical lymphadenopathy. Lungs: Clear to auscultation bilaterally. Cardiac: No chest wall tenderness. Otherwise unremarkable cardiac examination with regular rhythm. S4. No loud murmur. Abdomen: Mildly obese and otherwise unremarkable examination without tenderness , mass, hepatosplenomegaly or bruit of abdominal aortic aneurysm. Extremities: No edema. Pedal pulses difficult to feel bilaterally. DIAGNOSTIC STUDIES: ELECTROCARDIOGRAM: The initial electrocardiogram shows sinus rhythm at [address]. There is mild [address] elevation in lead III and ST coving with less than [address]-elevation in lead aVF. There are inferior Q-waves consistent with a prior inferior infarction. The inferior leads are mostly resolved from her infarct, but in the medical record, I find no interim ECGs to indicate if these are residual changes. There is prominent anterolateral downsloping ischemic-appearing ST depression in leads L1, aVL and in lead V5, V6. On serial ECGs, the ST depression partially resolve; and the inferior ST changes resolve. Subsequent ECG shows diffuse inferolateral and anterolateral T-wave inversion including T-wave inversion V3 through V6. CHEST X-RAY reports no acute cardiopulmonary disease. LABORATORY: CBC includes WBC 8600 with hemoglobin 12.8, hematocrit 38.6, macrocytosis with MCV 101.3 and low platelet count, 133,000. INR 1.04. Chemistries include potassium 4.3 with BUN 24, creatinine 7.78. BUN 24. LFT pending. Cardiac markers include total CK 71, rising to 232. Troponin 0.042, rising to 0.444. ECHOCARDIOGRAM: I reviewed the images of her Echocardiogram after PCI in April; and the current Echocardiogram. Currently there is severe LV dysfunction with estimated ejection fraction about 30%. There are wall motion abnormalities involving the septum, apex, and inferior galvez which are new since previously when overall ejection fraction was only mildly diminished with inferior wall motion defect. Anterior and Lateral wall motion is preserved. Previously there was pulmonary hypertension. Now not enough TR to estimate PA pressure. Valvular include mild to moderate MR and mild AR without aortic stenosis. CORONARY ANGIOGRAM: I reviewed the coronary angiogram from April 27, 2017. At that time, the mid RCA was occluded. There is severe disease. There are nefk-rc-dfwzz collaterals. There are also collaterals from the RCA to the distal LAD. The artery was revascularized but there are residual lesions. The LAD is severely diffusely diseased with severe proximal disease as well as functional occlusion with JOEL-2 flow distally due to multiple mid and distal LAD lesions. The circumflex has severe proximal lesion. ASSESSMENT: I discussed my findings, impressions, and management considerations extensively with the hospitalist team, with Cardiology, and with the family, including patient, and two daughters. 1. Fall: She appeared to have a mechanical fall that led to incidental evaluation of her current cardiac status. The fall appears to be mechanical and our best clinical assessment of the overall scenario is that her fall was not syncope, or primarily a cardiac event. 2. Acute coronary syndrome: Incidental ECG led to the finding of coronary disease, including apparent xpv-HE-rzlnwakmb myocardial infarction. Currently, she did have ST elevation which may have been residual from her prior infarction but cleared suggesting there was at least transient ST elevation; but the serial troponins did not suggest a large infarction at this time. The diffuse ST depression and T-wave inversion suggest ischemia in other coronary territories as well. The overall best interpretation of the clinical scenario suggests that this may be a secondary, "type 2" event related to her fall. She appears to have advanced end-stage coronary disease and now newly identified ischemic cardiomyopathy. She is at high risk including because of the severity of her coronary disease. Her management considerations are markedly affected by her frailty and severe dementia. We discussed options for treatment including medical treatment, consideration of intervention or surgery. I discussed this in the context of the wishes of the patient and her . We all agreed that surgery would not be a good consideration for her at this time. Additionally, the Distal LAD may not even be a good target for Bypass. We considered medication. This option would be best suited to her psychosocial situation, but she would be at substantial risk. Consideration of catheterization to define her anatomy and consideration of intervention would carry also substantial risk, including given the prior difficulties of working on her right coronary artery; and the diffuse disease of the LAD and the risk of her LV dysfunction. Overall, it was my impression that medical therapy would be the best option to pursue initially; and to reassess her progress that way. The family understand she is at high risk including for further symptoms, infarction, and risk to her life regardless of choice of treatment. The and the patient appeared most comfortable with the option of medical therapy at this time--indicating, "She is ready to go; she is going to [facility] include [facility] beds [facility] the [facility]." RECOMMENDATIONS: 1. Close ongoing monitoring. 2. Optimal medical therapy as discussed including maintain aspirin, maintain Plavix (including consideration of the risks of bleeding after her trauma that we discussed); statin; beta-derek if possible but note bradycardia. 3. Add long-acting nitrates carefully, and if well tolerated. 4. Reassess if she becomes symptomatic or deteriorates. 5. Encouraging in her scenario is the fact that there is no symptomatic chest pain which might be the primary reason to pursue a more aggressive approach at this time. 6. Your evaluation of her thrombocytopenia and any consideration of possible HIT. 7. Consider Palliative Care consultation. JAYRO
--- NOTE | 2016-09-08 23:07 | NUR ---
hear rate: pt.'s heart rate up to 145, pt. had emesis, zofran given, for about 30min pt's heart rate went back and forth between 60's and 140's, ekg obtained, pt. was in sinus rhythm 64, prolonged qt interval, old infarct, Dr. Lobato paged, stated to watch pt. and notify if heart rate stays above 70, heart rate currently not having anymore episodes of psvt, will cont. to monitor.
[2016-09-09] VITALS (9 sets, daily range): BP systolic 107–125; BP diastolic 48–81; PULSE 64–82; RESP 14–21; O2SAT 95–98
--- NOTE | 2016-09-09 03:16 | NUR ---
: pt. up to bedside commode twice, unable to void, bladder scanned for 570cc urine, paged hospitalist, received order for in and out cath. Addendum: 09/09/16 at 0339 by MARTHA MARIE RN cathed for 550cc jarad urine
[2016-09-09 05:59] LABS: TROPONIN T 0.392 ug/L (0.0-0.011)
[2016-09-09] MEDS: Heparin 25K Unit/500mL 0.45 NS 25,000 UNIT in IV Premix 1 EACH IV SCH (08:06)
--- NOTE | 2016-09-09 11:29 | NUR ---
Palliative Care Palliative Care received order from Dr Campbell 09/08/16 to assist with goals of care. Patient is an 85 year old woman with history of dementia, anemia, hypertension, thrombocytopenia and a recent hospitalization 04/30/16 due to STEMI. She was admitted 09/08/16 with head injury following a GLF at home. She is receiving care for STEMI. The Palliative Care Team saw patient when she was here in 04/2016. Patient lives at home with her . Royce () [phone] Carole (daughter) [phone] Palliative Care to follow. Louann Abad
--- NOTE | 2016-09-09 18:26 | PCM.PNMED ---
Subjective Date of Service Sep 09, 2016 Subjective 85-year-old woman with dementia presented after a benign fall at home with acute coronary syndrome. Patient is alert but cognitively impaired. She endorses no symptoms today. Exam Vital Signs Vital Sign - Last Date Time Temp Pulse Resp B/P Pulse Ox O2 Delivery O2 Flow Rate FiO2 09/09/16 16:02 36.7 65 18 115/54 98 Room Air Intake and Output 09/08/16 09/08/16 09/09/16 Cumulative From/Thru 15:00 23:00 07:00 09/07/16 17:49 - 09/09/16 06:08 Intake Total 479 ml 393 ml 944 ml Output Total 290 ml 550 ml 1190 ml Balance 189 ml -157 ml -246 ml Intake Oral 300 ml 200 ml 500 ml IV Total 179 ml 193 ml 444 ml Output Urine Total 290 ml 550 ml 1190 ml # Bowel Movements 3 3 Exam General: Elderly woman, no acute distress HEENT: sclerae anicteric, oral mucosa moist, no signs of trauma evident Neck: no apparent JVD Chest: Generally clear to auscultation, bibasilar crackles Cardiac: S1S2, other, no murmur Abdomen: BS normal, non-tender Extremities: edema Neuro: Alert and responsive but little thought content, cranial nerves symmetric , motor strength 5/5, coordination normal IVs and Medications Medications Reviewed: Medications were reviewed in detail Lab and Diagnostics Result Diagram: 09/09/16 0505 09/09/16 0505 X-Rays, CTs and MRIs DATE OF SERVICE: 04/27/16 0741 PROCEDURE: X-RAY CHEST ONE VIEW, PORTABLE ([id number]) IMPRESSION: No acute pulmonary process. Dictated by: Elizabeth Joseph M.D. on 04/27/2016 at 8:46 DATE OF SERVICE: 04/28/16 1306 PROCEDURE: CT BRAIN WITHOUT CONTRAST ([id number]) INDICATIONS: Fall; struck the back of her head IMPRESSION: 1. No acute intracranial finding. 2. Findings likely associated with chronic microvascular ischemic changes. Dictated by: Ela Woods M.D. on 04/28/2016 at 13:44 X-Ray Ordered: Hip left Interpretation / Wet Read by: Wet read ED physician Interpretation: Normal exam, No fracture/dislocation CT C-spine Impression: 1. No visualized fracture. Study type: CT no contrast Interpretation / Wet Read by: Interpret - Radiologist 12-lead ECG ECG Interpretation: ST elevation of 1 mm in lead III. Global T wave inversion and ST depression new from prior ECG 04/27/16. Time: 21:33 Interpreted by: ED physician Normal ECG Interpretation: Normal rate (80), Normal sinus rhythm ECG Interpretation: NSR with a rate of 82. ST elevation in lead III. Voltage criteria for STEMI still not met. Whole clinical picture still suspicious for cardiac event. Time: 23:03 Interpreted by: ED physician Assessment & Plan 85 year old female with a history of dementia, anemia, hypertension, thrombocytopenia, a recent hospitalization 04/30/16 due to STEMI on dual antiplatelet therapy, who presents to the ED via EMS with head injury following a GLF at home. # Acute coronary syndrome, present on admission. Acute. - Continue telemetry - Cardiology consult is following - Optimizing medical management; continuing heparin drip, clopidogrel, aspirin - We will initiate isosorbide at low dose and follow orthostatic symptoms in a.m. - cont statin # Head hematoma, present on admission. Acute. CT head negative for any acute process - Plavix and ASA restarted. # Acute kidney injury, present on admission. Acute. - baseline creatinine 0.8 - lisinopril held - repeat BMP in am # Advanced dementia, present on admission. Stable. - UA, CT head negative DVT prophy: Heparin gtt GI prophy: not indicated CODE STATUS: FULL Dispo: Likely 1-2 more days for optimization of medical management of ischemic coronary disease GI Prophylaxis: Not indicated VTE Prophylaxis: Other (Heparin ggt) Resuscitation Status: CPR: Attempt Resuscitation Time spent 35 minutes Bipin Blackwood MD Sep 09, 2016 18:26
--- NOTE | 2016-09-09 19:11 | NUR ---
Imdur This AM the charge nurse notified this nurse that Dr. Meléndez had spoken to her about "increasing" her Imdur and to monitor her blood pressures. Noted that no Imdur was on her eMAR and there were no new orders for Imdur either in her electronic or hard charts. Paged Dr. Meléndez for clarification at [phone]. There was no reply. Paged again at [phone]. Again there was no reply. Called the laborer general shortly after and was told he had just left. Called his cellphone about [phone] and he answered. Clarified that he wanted Imdur started and to monitor her blood pressures. Telephone order written and transmitted to her electronic chart. Care continues.
[2016-09-09] MEDS: Isosorbide Mononitrate 30 mg ER24 Tablet PO SCH (19:17)
--- NOTE | 2016-09-09 20:02 | PCM.CONPAL ---
Date of Service Sep 09, 2016 Date of Hospital Admission: Sep 08, 2016 at 00:05 Date of Palliative Consult: Sep 09, 2016 Requesting Provider: Mahesh Campbell MD Reason Palliative Care Consult: Goals of Care Discussion Hospital Unit @time of consult: [facility] Palliative Care Recommendation Summary of palliative recommendations: -Symptom management (Pain/other) -DPOA/Advanced Directives/POLST-Reviewed their goals referencing the POLST and discussion from 05/05. DNR/DNI and no feeding tube. states brought POLST to ER but now not available. Will need another completed before d/c -Family/emotional support- seems to have some alienation from her daughters. -Spiritual support-strong support from their faith Problems: End of Life Preferences and agreed by requesting DNR/DNI and no feeding tube. Goals of Care Hoping for SNF to strengthen then to return home recognizes getting close to point of not being able to care for his at home. Resuscitation Status Resuscitation Status: DNR/DNI:Do Not Resuscitate/Intubate POLST Updates/Changes Artificially Admin Nutrition: No Artifical Nutrition by Tube POLST Discussed with: Patient, Spouse/Other . 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 Per , patient appears to have tripped on the edge of carpet, while he was looking away. Patient did not express head pain or chest pain. noticed blood on her neck and realized she had hit her head, decided to call EMS. denies any change in mental status after realizing she had fallen. Per EMS report the patient had no LOC and has a large hematoma to her R occiput. Patient had complained of some left leg pain and head pain in ED, although at time of this interview, she denies having any headaches, leg pain or chest pain. History is limited to husbands recollection of events, due to patient not able to recall incident. not aware of any cardiology follow up after last discharge. Patient was recently seen by her PCP on 08/29, no mention of cardiology appointment. In the ED, vitals: T36.8, P69, R19, BP157/60, 96% on RA. Labs significant for troponin 0.035, creatinine 1.05. UA, CXR, CT head negative. Xray of left hip with no fractures. 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 Dr. Meléndez to be called with any significant findings. Palliative care note 85-year-old female patient with dementia could been living with her tripped and fell at home striking her arm and her head. She had significant leg pain but this was not addressed until they finished their dinner and she was able to walk to the table. Her brought her to the emergency room and she was admitted Patient has history of ischemic heart disease as above. She was seen by palliative care in April during that hospitalization. Neither patient nor her recall this. Echocardiogram obtained this admission notes LV EF of 30% The patient apparently has not had any further chest pain shortness of breath edema or orthopnea at home. Her does not identify difficulty with management at home. He feels he has adequate support primarily from his faith.. 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 He verbalizes distance from her 2 daughters. 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 PRN PRN IVPUSH; Start 09/07/16 at 22:45 Ondansetron HCl 4 to 8 mg Q4H PRN IVPUSH Last administered on 09/08/16t 22:43; Admin Dose 4 MG; Start 09/07/16 at 23:45 Acetaminophen/ Premix 100 ml @ 400 mls/hr Q6H PRN IV; Start 09/07/16 at 23:45 ; Stop 09/08/16 at 23:46; Status DC Senna 2 tablet BID PRN PO; Start 09/07/16 at 23:45 Al Hydrox/Mg Hydrox/Simethicone 30 ml Q6 PRN PO; Start 09/07/16 at 23:45 Polyethylene Glycol 17 gm DAILY PRN PO; Start 09/07/16 at 23:45 Atorvastatin Calcium 10 mg DAILY PO; Start 09/08/16 at 08:30; Stop 09/08/16 at 08:30; Status DC Atorvastatin Calcium 40 mg DAILY PO Last administered on 09/09/16 08:00; Admin Dose 40 MG; Start 09/08/16 at 08:30; Stop 09/09/16 at 16:36; Status DC Aspirin 81 mg DAILY PO Last administered on 09/09/16 08:00; Admin Dose 81 MG; Start 09/08/16 at 10:30 Clopidogrel Bisulfate 75 mg DAILY PO Last administered on 09/09/16 08:00; Admin Dose 75 MG; Start 09/08/16 at 10:30 Atorvastatin Calcium 40 mg DAILY PO; Start 09/10/16 at 08:30 Isosorbide Mononitrate 30 mg 0730 PO Last administered on 09/09/16 19:17; Admin Dose 30 MG; Start 09/09/16 at 18:40 Scheduled Ascorbic Acid (Vitamin C) 1,000 Mg Tab.chew 1,000 MG PO DAILY Aspirin (Aspirin) 81 Mg Tablet 81 MG PO DAILY Atorvastatin (Lipitor) 10 Mg Tab 10 MG PO DAILY Clopidogrel (Clopidogrel) 75 Mg Tablet 75 MG PO DAILY Lisinopril (Lisinopril) 5 Mg Tablet 5 MG PO HS Lutein (Lutein) 20 Mg Tablet 20 MG PO DAILY Multivitamin (Multivitamins) 1 Each Capsule 1 EACH PO DAILY Objective Findings Exam Vital Sign - Last Date Time Temp Pulse Resp B/P Pulse Ox O2 Delivery O2 Flow Rate FiO2 09/09/16 19:16 37.3 80 14 112/65 98 Room Air Intake and Output 09/08/16 09/08/16 09/09/16 Cumulative From/Thru 14:59 22:59 06:59 09/07/16 17:49 - 09/09/16 06:08 Intake Total 479 ml 393 ml 944 ml Output Total 290 ml 550 ml 1190 ml Balance 189 ml -157 ml -246 ml Intake Oral 300 ml 200 ml 500 ml IV Total 179 ml 193 ml 444 ml Output Urine Total 290 ml 550 ml 1190 ml # Bowel Movements 3 3 General: Alert, Oriented, Person HEENT: EOMI, Scleral Anicteric Heart: Regular Rate/Rhythm Lungs: Clear to Auscultation Abdomen: Bowel Tones x4, Soft Neuro: Cranial Nerve 3-12 Intact, Other (mild- mod expressive aphasia) Extremities: No Edema Lab/Diagnostics Lab and Imaging results reviewed in detail in EMR. Patient/Family Conference Discussion/Goals of Care Discussion FAMILY UNDERSTANDING OF DISEASE: DISEASE PROGRESSION/EVIDENCE OF DECLINE: SYMPTOM BURDEN: GOALS: HOPES/WORRIES: FAMILY WISHES/VALUES: Do you want to be told truth about his illness, even if unpleasant? Does family want to know prognosis when it can be predicted, to better guide treatment decisions? What is quality of life for the patient: to be able to interact with their loved ones and friends, to travel, not to be bedbound, to be independent in taking care of themselves: Would patient choose quality of life over quantity of life? Would comfort care be more important than being awake and alert? If patient is no longer alert and aware because of their illness, would you choose comfort for them? Palliative Care counselled: Time spent Total time 50 minutes; >50% face to face with patient and/or family, providing counselling regarding plans and recommendations, and in care coordination with his/her medical teams. I also spent an additional [ ] minutes counseling for advanced care planning with the patient/the patients family/the surrogate decision maker. copies to: Manny Montana MD, Jie Salazar MD Sep 09, 2016 20:02
--- NOTE | 2016-09-09 21:54 | PROG NOTE ---
[address] [address] PROGRESS NOTE PATIENT: MIKI SAENZ I : 1930 MR#: [id number] ADMIT: 09/08/2016 JOB ID: [id number] CARDIOLOGY CONSULTATION PROGRESS NOTE--FOLLOW-UP INPATIENT VISIT: DATE OF EVALUATION: Friday, September 09, 2016. CONSULTING PHYSICIAN: Cardiology--Dusty Meléndez MD PROBLEMS: 1. CAD. a. Severe three-vessel CAD. b. ACS--admitted after a fall, without chest pain but with transient ST elevation in lead III and transient severe lateral ST depression. c. Elevated troponin. 2. Mechanical fall. 3. Dementia--severe. HOSPITAL COURSE AND INTERIM PROGRESS: I saw this patient along with her on Cardiology rounds today, Friday, September 09, 2016. This 85-year-old woman was admitted because of weakness after a mechanical fall. An ECG, done incidentally, showed unexpected ST- elevation which might have been residual from her STEMI in April,, at which time, the occluded RCA was stented; but there were residual lesions. She also has severe three-vessel CAD. On this admission, she has remained clinically stable and without chest discomfort; but did develop elevated troponin; and only trivial elevation of CK total. We have discussed her status and management extensively regarding the high risk and poor prognosis of her underlying severe coronary disease, along with the risks of further efforts at Intervention, particularly in the setting of her severe dementia. Today, she tells me she is doing well. She seems much brighter and more alert. She has not been out of bed much. During the day, the nurses did get her out of bed and she requires two- person assistance but is doing reasonably well. It is not clear that she is yet back to her baseline where she can live in the home with her . No chest pain. RECOMMENDATION: 1. Medical therapy--We initiated long-acting nitrate with Imdur 30 mg today, to be monitored carefully, especially for hypotension and orthostasis. 2. If she does well clinically without chest pain or further clinical events, we will be reassured. We can consider intervention as needed in an ongoing manner. 3. Main focus now is re-ambulation. [facility]
[2016-09-10] VITALS (10 sets, daily range): BP systolic 107–140; BP diastolic 55–90; PULSE 71–119; RESP 20–24; O2SAT 96–98
[2016-09-10 04:11] LABS: BASOPHILS % (AUTO) 0.1 % (0-3); EOSINOPHILS % (AUTO) 3.1 % (0-5); MONOCYTES % (AUTO) 13.6 % (4-12); Mean Corpuscular Volume 100.6 fL (81-100); NEUTROPHILS % (AUTO) 70.6 % (40-74); Platelet Count 140 bil/L (150-400)
--- NOTE | 2016-09-10 06:37 | NUR ---
left ankle/leg pt up to BS with 2pa pt c/o left ankle/leg pain with activity, received order for one time dose of tylenol which was a little effective, pt unable to verbalize the discomfort in her ankle/leg but it shows on her face and her decreased mobility
--- NOTE | 2016-09-10 06:39 | NUR ---
PSVT pt SR around 0345 pt have runs of PSVT up to 160s then back to 70-80s for seconds at a time. pt denies any CP or nausea, this kept happening for about 25 minutes then resolved.
[2016-09-10] MEDS: Isosorbide Mononitrate 30 mg ER24 Tablet PO SCH (07:48)
--- NOTE | 2016-09-10 10:35 | NUR ---
Change in cardiac rhythm 10 to 30 second runs of SVT in the 160s while up to BSC, once resting pt returns to SR in the 80s with inverted t-waves & PACs & PVCs. Pt asymptomatic during episodes, denies chest discomfort. No reported nausea. Respirations unlabored. Unable to perform accurate orthostatics due to SVT. Continued complaints of left hip and ankle discomfort, unable to bear weight on left leg. Denies pain while lying in bed. Dr Blackwood notified of change in patient status, new orders given.
--- NOTE | 2016-09-10 10:39 | PCM.PALLBR ---
Palliative Care Recommendation Summary of palliative recommendations: -Symptom management (Pain/other) Pain-L ankle. is hoping for PT to eval. May need xray based on their eval. They could also determine if brace would be helpful as well as her ability to maneuver with a walker. Gait instability- states they have a walker but she doesn't want to use it. reviewed use now with acute injury as well as a repeat review of balance classes etc. GOC-- he hopes to be able to take her home rather than SNF. He is looking into alternate living situations for her. -DPOA/Advanced Directives/POLST-Reviewed their goals referencing the POLST and discussion from 05/05. DNR/DNI and no feeding tube. states brought POLST to ER but now not available. POLST completed today-and copied for EMR and for her --DNR/DNI, limited and no feeding tube--unchanged from the one in Apr. -Family/emotional support- seems to have some alienation from her daughters. Finances limited and he is hoping to see if he can get some resources through the [facility]--CM/SS notified of this. He could use assistance in negotiating with the [facility]--ie liason -Spiritual support-strong support from their taoist. Adventist is very important to both of them. Problems: End of Life Preferences and agreed by requesting DNR/DNI and no feeding tube. Goals of Care now hoping for getting her home and not SNF if possible recognizes getting close to point of not being able to care for his at home. Disposition Home if able to be safe and manageable. OK for short term SNF if needed. Resuscitation Status Resuscitation Status: DNR/DNI:Do Not Resuscitate/Intubate POLST Updates/Changes Artificially Admin Nutrition: No Artifical Nutrition by Tube POLST Discussed with: Patient, Spouse/Other . Advanced Care Planning Address: POLST Total time 20 minutes; >50% face to face with patient and/or family, providing counselling regarding plans and recommendations, and in care coordination with his/her medical teams. Including completion of POLST, coordination of care for PT eval and [facility] issues I also spent an additional [ ] minutes counseling for advanced care planning with the patient/the patients family/the surrogate decision maker. copies to: Manny Montana MD Palliative Brief Note Date of Service Sep 10, 2016 . Patient seen with at bedside. He is assisting her to eat. She is sitting up in bed and smiles. She is able to verbalize short sentences but can also stumble even at the start of a sentence. Required assist of 2 yesterday due to L ankle pain per nsg. O: eating well-no choking or coughing. same with liquid or solids. mentation-reviewed POLST and she is able to respond appropriately to questions with yes or no but not able to verbalize complex concepts. She seems to understand--ie expressive but not receptive aphasia. no image of ankle--only hip pelvis-no evidence of fx Jie Sandoval MD Sep 10, 2016 10:39
--- NOTE | 2016-09-10 14:00 | DRSVH ---
PROCEDURE: X-RAY LEFT ANKLE, MINIMUM THREE VIEWS ([id number]) INDICATIONS: fall with L ankle pain TECHNIQUE: 3 views of the ankle were acquired. COMPARISON: None. FINDINGS: Bones: No fractures or dislocations. Ankle mortise is normally aligned. No suspicious bony lesions . Small plantar calcaneal enthesophyte. Soft tissues: No tibiotalar joint effusion. Achilles tendon appears normal. IMPRESSION: No displaced fracture seen. If there is continued pain, followup exam or additional yakelin ging such as MRI or CT could be performed for further assessment. Dictated by: Leroy Wright Martin Interpreted: Elizabeth Joseph MD on 09/10/2016 at 13:59 Transcribed by: ALESHA on 09/10/2016 at 13:59 Approved by: Elizabeth Joseph M.D. on 09/10/2016 at 16:52
--- NOTE | 2016-09-10 14:13 | NUR ---
Social Work Note: Continued Discharge Planning Data& Assessment: Per MD pt is not medically ready for discharge at this time. SW met with pt to assess for any unmet needs. Pt getting prepped for test. Pt ankle and hip is causing a lot of pain for pt per pt . Per pt , pt is eager to get out of bed and start working with PT when able. PT still has the SNF/HH list to reference. Pt explained he will review the list with pt for SNF preferences if pt requires SNF at time of discharge and if PT clears pt to go home when medically ready, the preference is for [facility]. Pt and pt are hopeful to be able to work with PT tomorrow. SW to follow up with pt and pt regarding discharge planning pending PT recommendations and evaluation. Pt denied any other needs at this time. SW to continue to follow. Plan: Anticipated discharge home with HH vs. SNF pending PT recommendations and evaluation. Pt denied any other needs at this time. SW to continue to follow. ELAINE Sun
--- NOTE | 2016-09-10 14:13 | NUR ---
MARIBEL signed ELAINE Sun
--- NOTE | 2016-09-10 14:39 | PCM.PNMED ---
Subjective Date of Service Sep 10, 2016 Subjective 85-year-old woman with dementia presented after a benign fall at home with acute coronary syndrome. Patient is alert but cognitively impaired. She smiles and endorses no symptoms today. She has had episodes of supraventricular tachycardia. is at bedside worried about her limited mobility due to left hip and left ankle pain. Nurses report requiring 2 person assist. 's goal is for home based care. Exam Vital Signs Vital Sign - Last Date Time Temp Pulse Resp B/P Pulse Ox O2 Delivery O2 Flow Rate FiO2 09/10/16 12:25 80 09/10/16 12:13 107/56 09/10/16 12:10 36.6 98 Room Air 09/10/16 03:16 21 Intake and Output 09/09/16 09/09/16 09/10/16 Cumulative From/Thru 14:59 22:59 06:59 09/07/16 17:49 - 09/10/16 06:17 Intake Total 747 ml 293 ml 1984 ml Output Total 1050 ml 1000 ml 3240 ml Balance -303 ml -707 ml -1256 ml Intake Oral 610 ml 120 ml 1230 ml IV Total 137 ml 173 ml 754 ml Output Urine Total 1050 ml 1000 ml 3240 ml # Bowel Movements 3 Exam General: Elderly woman, no acute distress HEENT: sclerae anicteric, oral mucosa moist, mostly healed right periorbital bruise Neck: no apparent JVD Chest: Generally clear to auscultation Cardiac: S1S2, regular Abdomen: BS normal, non-tender Extremities: No pitting edema Neuro: Alert and responsive but little thought content, cranial nerves symmetric , motor strength 5/5, coordination normal IVs and Medications Medications Reviewed: Medications were reviewed in detail Lab and Diagnostics Result Diagram: 09/10/16 0335 09/10/16 0335 X-Rays, CTs and MRIs DATE OF SERVICE: 04/27/16 0741 PROCEDURE: X-RAY CHEST ONE VIEW, PORTABLE ([id number]) IMPRESSION: No acute pulmonary process. Dictated by: Elizabeth Joseph M.D. on 04/27/2016 at 8:46 DATE OF SERVICE: 04/28/16 1306 PROCEDURE: CT BRAIN WITHOUT CONTRAST ([id number]) INDICATIONS: Fall; struck the back of her head IMPRESSION: 1. No acute intracranial finding. 2. Findings likely associated with chronic microvascular ischemic changes. Dictated by: Ela Woods M.D. on 04/28/2016 at 13:44 CT C-spine Impression: 1. No visualized fracture. Study type: CT no contrast Interpretation / Wet Read by: Interpret - Radiologist PROCEDURE: X-RAY LEFT ANKLE, MINIMUM THREE VIEWS ([id number]) IMPRESSION: No displaced fracture seen. If there is continued pain, followup exam or additional imaging such as MRI or CT could be performed for further assessment. Dictated by: Leroy Wright RR Interpreted: Elizabeth Joseph MD on 09/10/2016 at 13: 59 PROCEDURE: X-RAY PELVIS W/LAT HIP (LT) ([id number]) IMPRESSION: No fracture or dislocation. If clinical symptoms persist or clinical suspicion for pathology is high, a repeat examination in 7-10 days, or advanced imaging such as CT or MRI is suggested for further evaluation. Dictated by: Darlene Langford M.D. on 09/08/2016 at 8:48 . 12-lead ECG ECG Interpretation: ST elevation of 1 mm in lead III. Global T wave inversion and ST depression new from prior ECG 04/27/16. Time: 21:33 Interpreted by: ED physician Normal ECG Interpretation: Normal rate (80), Normal sinus rhythm ECG Interpretation: NSR with a rate of 82. ST elevation in lead III. Voltage criteria for STEMI still not met. Whole clinical picture still suspicious for cardiac event. Time: 23:03 Interpreted by: ED physician Assessment & Plan 85 year old female with a history of dementia, anemia, hypertension, thrombocytopenia, a recent hospitalization 04/30/16 due to STEMI on dual antiplatelet therapy, who presents to the ED via EMS with head injury following a GLF at home. # Acute coronary syndrome, present on admission. Acute. - Optimizing medical management; clopidogrel, aspirin, statin - Iosorbide mononitrate 30 mg initiated on 09/10; difficult to assess orthostatic effects due to her limited mobility - continue statin # Supraventricular tachycardia. Heart rates have been 130-150 briefly. Blood pressure is stable. Electrolytes are normal. No evidence of ischemia. - Initiate low-dose metoprolol tartrate twice a day. - Continue telemetry monitoring today; if stable and okay for discharge tomorrow # Mobility impairment. Acute left hip and ankle pain. History difficult to obtain from patient. Seems more like hip pain, but she is unwilling to bear much weight on ankle. X-rays unremarkable - Trial diclofenac topical gel to ankle - Physical therapy consult - Recommendations for postdischarge care # Head hematoma, present on admission. Acute. CT head negative for any acute process - Plavix and ASA restarted. # Acute kidney injury, present on admission. Acute. - baseline creatinine 0.8 - lisinopril resume at discharge # Advanced dementia, present on admission. Stable. - UA, CT head negative DVT prophy: Heparin sc GI prophy: not indicated CODE STATUS: FULL Dispo: Likely medically ready on 09/11; plan home health services as needed GI Prophylaxis: Not indicated VTE Prophylaxis: Other (Heparin ggt) Resuscitation Status: DNR/DNI:Do Not Resuscitate/Intubate Time spent 35 minutes spent in patient assessment in care coordination on the unit Bipin Blackwood MD Sep 10, 2016 14:38
--- NOTE | 2016-09-10 17:45 | NUR ---
Pt c/o bladder distention and urge to void. Up to BSC x 2, unable to void. Bladder scan results, > 500cc. Dr Blackwood notified and PRN straight cath orders given.
--- NOTE | 2016-09-10 19:53 | PROG NOTE ---
[address] [address] PROGRESS NOTE PATIENT: MIKI QUINTERO I : 1930 MR#: [id number] ADMIT: 09/08/2016 JOB ID: [id number] CARDIOLOGY CONSULTATION PROGRESS NOTE--FOLLOW-UP INPATIENT VISIT: DATE OF EVALUATION: Saturday, September 10, 2016. CONSULTING PHYSICIAN: Cardiology--Dusty Meléndez MD. HOSPITAL COURSE AND INTERIM PROGRESS: I saw Ms. Quintero, along with her , on Cardiology rounds this morning, and again several times throughout the day to check her progress. I discussed also with the primary Hospitalist team and the nursing staff. Overall, she has been stable and has continued to do reasonably well given her severe underlying coronary disease, her recent event, and especially with her marked frailty and severe dementia. Overall, her mental status and speech seem reasonably intact, but the says not quite returned to her baseline at home; or least not returned to her best moments given her frequent ups and downs. She has not been out of bed much, and has required assistance. Physical therapy evaluation is pending. CAD: Imdur was started last night, and she had a dose again this morning. The nurse reports that she seems reasonably stable without overt orthostatic symptoms and no orthostatic hypotension. In other words, she seems to be tolerating the nitrates reasonably well. SVT: She has had some short bursts of PACs. Metoprolol was started and SVT has seemed to moderate; and not seen anymore. ASSESSMENT AND RECOMMENDATION: CAD: We have discussed ongoing care with the patient and her as well as among staff regarding the difficult decision to treat her medically because of her frailty and dementia while at the same time aware of the high risk for cardiac events because of her underlying severe, end-stage, and advanced coronary disease. In talking with the patient, her and medical staff, the consensus is most comfortable to hold off on invasive procedures at this time. My impression is that invasive procedure would almost certainly confirm the multiple severe coronary lesions we know. There may be something treatable--I would anticipate in the right coronary. PLAN: 1. Optimal medical therapy, including with nitrates. 2. Close clinical monitoring including close follow-up with primary physician and in the Cardiology office (Dr. Laura knows her; and would like to see her). 3. Ongoing reassessment to consider more aggressive invasive therapy especially if she has further events. 4. We all agreed getting her out of the hospital [facility] at this point might prevent further hospital-based morbidity especially deterioration of her mental status or falls. PT evaluation is imminent regarding decision of SNF versus home. I suggested to the if she goes home that he try to mobilize home visiting nurse and home health (he did not find that as helpful as he wanted in the past; but might reconsider). JAYRO
[2016-09-11] VITALS (7 sets, daily range): BP systolic 105–138; BP diastolic 46–118; PULSE 69–88; RESP 19–26; O2SAT 95–98
--- NOTE | 2016-09-11 04:38 | NUR ---
voiding pt up to BSC x2 unable to void, pt denies the urge to void, pt was incontinent x1, bladder scanned pt and she had 606cc in bladder, straight cath and got 550cc out.
[2016-09-11] MEDS: Isosorbide Mononitrate 30 mg ER24 Tablet PO SCH (07:53)
--- NOTE | 2016-09-11 16:00 | PCM.PNMED ---
Subjective Date of Service Sep 11, 2016 Subjective 85-year-old woman with dementia presented after a benign fall at home with acute coronary syndrome. Patient is alert but cognitively impaired. She smiles and endorses no symptoms today. Limited mobility due to left hip and left ankle pain, which is somewhat chronic. Nurses report requiring 2 person assist. She has chronic bladder dysfunction and urinary retention but seems to identify need to void and is compliant with commode efforts. 's goal is for home based care, but he is advised that at present she requires SNF placement. Exam Vital Signs Vital Sign - Last Date Time Temp Pulse Resp B/P Pulse Ox O2 Delivery O2 Flow Rate FiO2 09/11/16 12:30 36.3 73 22 105/61 95 Room Air Intake and Output 09/10/16 09/10/16 09/11/16 Cumulative From/Thru 15:00 23:00 07:00 09/07/16 17:49 - 09/11/16 06:18 Intake Total 558 ml 375 ml 2917 ml Output Total 800 ml 550 ml 4590 ml Balance -242 ml -175 ml -1673 ml Intake Oral 400 ml 375 ml 2005 ml IV Total 158 ml 912 ml Output Urine Total 800 ml 550 ml 4590 ml # Voids 1 1 # Bowel Movements 3 Exam General: Elderly woman, no acute distress HEENT: sclerae anicteric, oral mucosa moist, mostly healed right periorbital bruise Neck: no apparent JVD Chest: Generally clear to auscultation Cardiac: S1S2, regular Abdomen: BS normal, non-tender Extremities: No pitting edema Neuro: Alert and responsive but little thought content, cranial nerves symmetric , her core muscles weak Lab and Diagnostics Result Diagram: 09/10/16 0335 09/11/16 0255 X-Rays, CTs and MRIs DATE OF SERVICE: 04/27/16 0741 PROCEDURE: X-RAY CHEST ONE VIEW, PORTABLE ([id number]) IMPRESSION: No acute pulmonary process. Dictated by: Elizabeth Joseph M.D. on 04/27/2016 at 8:46 DATE OF SERVICE: 04/28/16 1306 PROCEDURE: CT BRAIN WITHOUT CONTRAST ([id number]) INDICATIONS: Fall; struck the back of her head IMPRESSION: 1. No acute intracranial finding. 2. Findings likely associated with chronic microvascular ischemic changes. Dictated by: Ela Woods M.D. on 04/28/2016 at 13:44 CT C-spine Impression: 1. No visualized fracture. Study type: CT no contrast Interpretation / Wet Read by: Interpret - Radiologist PROCEDURE: X-RAY LEFT ANKLE, MINIMUM THREE VIEWS ([id number]) IMPRESSION: No displaced fracture seen. If there is continued pain, followup exam or additional imaging such as MRI or CT could be performed for further assessment. Dictated by: Leroy Wright RRA Interpreted: Elizabeth Joseph MD on 09/10/2016 at 13: 59 PROCEDURE: X-RAY PELVIS W/LAT HIP (LT) ([id number]) IMPRESSION: No fracture or dislocation. If clinical symptoms persist or clinical suspicion for pathology is high, a repeat examination in 7-10 days, or advanced imaging such as CT or MRI is suggested for further evaluation. Dictated by: Darlene Langford M.D. on 09/08/2016 at 8:48 . 12-lead ECG ECG Interpretation: ST elevation of 1 mm in lead III. Global T wave inversion and ST depression new from prior ECG 04/27/16. Time: 21:33 Interpreted by: ED physician Normal ECG Interpretation: Normal rate (80), Normal sinus rhythm ECG Interpretation: NSR with a rate of 82. ST elevation in lead III. Voltage criteria for STEMI still not met. Whole clinical picture still suspicious for cardiac event. Time: 23:03 Interpreted by: ED physician Assessment & Plan 85 year old female with a history of dementia, anemia, hypertension, thrombocytopenia, a recent hospitalization 04/30/16 due to STEMI on dual antiplatelet therapy, who presents to the ED via EMS with head injury following a GLF at home. # Acute coronary syndrome, present on admission. Acute. - Optimizing medical management; clopidogrel, aspirin, statin - Iosorbide mononitrate 30 mg initiated on 09/10; difficult to assess orthostatic effects due to her limited mobility - continue statin # Supraventricular tachycardia. Heart rates have been 130-150 briefly. Blood pressure is stable. Electrolytes are normal. No evidence of ischemia. - Initiate low-dose metoprolol tartrate twice a day. - Continue telemetry monitoring today; if stable and okay for discharge tomorrow # Mobility impairment. Acute left hip and ankle pain. History difficult to obtain from patient. Seems more like hip pain, but she is unwilling to bear much weight on ankle. X-rays unremarkable. 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 No evidence of acute inflammatory arthropathy. - Trial diclofenac topical gel to ankle - Acetaminophen as needed - Physical therapy consult for strengthening and mobilization. # Urinary retention. Chronic. - Continue scheduled void on commode at least every shift. - Bladder scan with when necessary straight cath for greater than 600 mL postvoid # Head hematoma, present on admission. Acute. CT head negative for any acute process - Plavix and ASA restarted. # Acute kidney injury, present on admission. Acute. - baseline creatinine 0.8 - lisinopril resume at discharge # Advanced dementia, present on admission. Stable. - UA, CT head negative DVT prophy: Heparin sc GI prophy: not indicated CODE STATUS: FULL Dispo: Likely medically ready on based on insurance approval for SNF; GI Prophylaxis: Not indicated VTE Prophylaxis: Other (Heparin ggt) Resuscitation Status: DNR/DNI:Do Not Resuscitate/Intubate Time spent 30 minutes Bipin Blackwood MD Sep 11, 2016 16:00
--- NOTE | 2016-09-11 18:33 | NUR ---
Fall: Pt found to have ground level fall at 1700, no apparent injuries sustained. Multiple bruises/abrasions/skin tears r/t previous falls. last rounded on at 1630. Per pt, "I fall all the time." [place] bed alarm in place, not alarming at time of fall, nonskid socks on. MD notified, no new orders given. notified, is not planning on coming in again tonight. Care ongoing.
[2016-09-12] VITALS (8 sets, daily range): BP systolic 108–125; BP diastolic 56–71; PULSE 70–86; RESP 16–19; O2SAT 95–100
--- NOTE | 2016-09-12 03:32 | NUR ---
Mentation Pt alert and orientated to self. No anxiety and not attempting to get out of bed on her own. Pt calm and cooperative with care.
[2016-09-12 04:18] LABS: BASOPHILS % (AUTO) 0.3 % (0-3); MONOCYTES % (AUTO) 12.6 % (4-12); Mean Corpuscular Volume 100.9 fL (81-100); NEUTROPHILS % (AUTO) 71.9 % (40-74); Platelet Count 135 bil/L (150-400)
[2016-09-12] MEDS: Isosorbide Mononitrate 30 mg ER24 Tablet PO SCH (09:15)
--- NOTE | 2016-09-12 14:19 | PCM.PNMED ---
Subjective Date of Service Sep 12, 2016 Subjective 85-year-old woman with dementia presented after a benign fall at home with acute coronary syndrome. Patient is alert but cognitively impaired. She has fallen twice within the last 24 hours. No significant new pain or clinical evidence of fracture. She smiles and endorses no symptoms today. Left hip and left ankle pain, which is somewhat chronic. Nurses report requiring 2 person assist, but able to walk 50 feet with assistance today. She has chronic bladder dysfunction and urinary retention but seems to identify need to void and is compliant with commode efforts. is supportive of discharge to home with increased home health assistance. Exam Vital Signs Vital Sign - Last Date Time Temp Pulse Resp B/P Pulse Ox O2 Delivery O2 Flow Rate FiO2 09/12/16 12:29 37.0 86 16 108/66 98 Room Air 09/12/16 04:30 1.00 Intake and Output 09/11/16 09/11/16 09/12/16 Cumulative From/Thru 14:59 22:59 06:59 09/07/16 17:49 - 09/12/16 06:32 Intake Total 550 ml 200 ml 3667 ml Output Total 450 ml 500 ml 5540 ml Balance 100 ml -300 ml -1873 ml Intake Oral 550 ml 200 ml 2755 ml IV Total 912 ml Output Urine Total 450 ml 500 ml 5540 ml # Voids 2 3 # Bowel Movements 0 3 Exam General: Elderly woman, no acute distress HEENT: sclerae anicteric, oral mucosa moist, mostly healed right periorbital bruise Neck: no apparent JVD Chest: Generally clear to auscultation Cardiac: S1S2, regular Abdomen: BS normal, non-tender Extremities: No pitting edema; right elbow with no focal tenderness after fall Neuro: Alert and responsive, moderate cognitive impairment, cranial nerves symmetric, core muscles weak Lab and Diagnostics Result Diagram: 09/12/16 0345 09/11/16 0255 X-Rays, CTs and MRIs DATE OF SERVICE: 04/27/16 7141 PROCEDURE: X-RAY CHEST ONE VIEW, PORTABLE ([id number]) IMPRESSION: No acute pulmonary process. Dictated by: Elizabeth Joseph M.D. on 04/27/2016 at 8:46 DATE OF SERVICE: 04/28/16 1306 PROCEDURE: CT BRAIN WITHOUT CONTRAST ([id number]) INDICATIONS: Fall; struck the back of her head IMPRESSION: 1. No acute intracranial finding. 2. Findings likely associated with chronic microvascular ischemic changes. Dictated by: Ela Woods M.D. on 04/28/2016 at 13:44 CT C-spine Impression: 1. No visualized fracture. Study type: CT no contrast Interpretation / Wet Read by: Interpret - Radiologist PROCEDURE: X-RAY LEFT ANKLE, MINIMUM THREE VIEWS ([id number]) IMPRESSION: No displaced fracture seen. If there is continued pain, followup exam or additional imaging such as MRI or CT could be performed for further assessment. Dictated by: Leroy Wright RR Interpreted: Elizabeth Joseph MD on 09/10/2016 at 13: 59 PROCEDURE: X-RAY PELVIS W/LAT HIP (LT) ([id number]) IMPRESSION: No fracture or dislocation. If clinical symptoms persist or clinical suspicion for pathology is high, a repeat examination in 7-10 days, or advanced imaging such as CT or MRI is suggested for further evaluation. Dictated by: Darlene Langford M.D. on 09/08/2016 at 8:48 . 12-lead ECG ECG Interpretation: ST elevation of 1 mm in lead III. Global T wave inversion and ST depression new from prior ECG 04/27/16. Time: 21:33 Interpreted by: ED physician Normal ECG Interpretation: Normal rate (80), Normal sinus rhythm ECG Interpretation: NSR with a rate of 82. ST elevation in lead III. Voltage criteria for STEMI still not met. Whole clinical picture still suspicious for cardiac event. Time: 23:03 Interpreted by: ED physician Assessment & Plan 85 year old female with a history of dementia, anemia, hypertension, thrombocytopenia, a recent hospitalization 04/30/16 due to STEMI on dual antiplatelet therapy, who presents to the ED via EMS with head injury following a GLF at home. # Acute coronary syndrome, present on admission. Acute. - Optimizing medical management; clopidogrel, aspirin, statin - Iosorbide mononitrate 30 mg initiated on 09/10; difficult to assess orthostatic effects due to her limited mobility - continue statin # Supraventricular tachycardia. Heart rates have been 130-150 briefly. Blood pressure is stable. Electrolytes are normal. No evidence of ischemia. - Initiate low-dose metoprolol tartrate twice a day. - Continue telemetry monitoring today; if stable and okay for discharge tomorrow # Frequent falling. Acute on chronic. There is no orthostatic hypotension despite metoprolol low dose and isosorbide low-dose. Her falling seems to be due to cognitive and degenerative joint issues. - Ambulate with assistance - Plan discharge with home health physical therapy # Mobility impairment. Acute left hip and ankle pain. History difficult to obtain from patient. Seems more like hip pain, but she is unwilling to bear much weight on ankle. X-rays unremarkable. 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 No evidence of acute inflammatory arthropathy. - Trial diclofenac topical gel to ankle - Acetaminophen as needed - Physical therapy consult for strengthening and mobilization. # Urinary retention. Chronic. - Bladder training and Continue scheduled void on commode at least every shift. - Bladder scan with when necessary straight cath for greater than 600 mL postvoid # Head hematoma, present on admission. Acute. CT head negative for any acute process - Plavix and ASA restarted. # Acute kidney injury, present on admission. Acute. - baseline creatinine 0.8 - lisinopril resume at discharge # Advanced dementia, present on admission. Stable. - UA, CT head negative DVT prophy: Heparin sc GI prophy: not indicated CODE STATUS: FULL Anticipated discharge home on 09/13. GI Prophylaxis: Not indicated VTE Prophylaxis: Other (Heparin ggt) Resuscitation Status: DNR/DNI:Do Not Resuscitate/Intubate Time spent 30 minutes Bipin Blackwood MD Sep 12, 2016 14:19
--- NOTE | 2016-09-12 17:20 | NUR ---
Social Work: Readiness for Discharge D: Pt discussed in am rounds. Pt is not medically stable for discharge at this time but is anticipate to be ready in the next several days. Pt worked with physical therapy today and was able to ambulate 55 feet with FWW. PT recommendation is for Home with HH and 24/7 care. Pt will likely not qualify for SNF stay under guidelines at this time. DELIVERY ASSISTANT met with pt and spouse at bedside to discuss recommendations. Spouse states he feels very confident with taking patient home and does not want pt going to skilled rehab. His preference is for [facility] for PT and ST. He stressed that he does not want any additional services added on and states he will be providing 24/7 care. DELIVERY ASSISTANT provided referral to Angus with [facility] . F2F signed and faxed to [phone]. Access provided. A: Pt who lives at home with her spouse who is primary caregiver. P: Anticipate pt to discharge home with new [facility] for PT and ST and 24/7 care from spouse. DELIVERY ASSISTANT to continue to follow. ELAINE Jay
--- NOTE | 2016-09-12 19:38 | NUR ---
Activity/Pain Patient a/o x self, c/o left groin thigh pain with activity, Tylenol given x 1. Patient oob amb in room and [place]rissey with walker and 1-2 person assist. Sat in chair for approx 4 hrs, eligio well. Patient voiding per bathroom, jarad uop with odor. Patient encouraged to increase fluid intake. Patient taking approx 25-33% meals. at bedside most of the shift. VSS, tele d/c'd.
[2016-09-13 00:33] VITALS: BP 122/71; PULSE 74; RESP 16; O2SAT 98
--- NOTE | 2016-09-13 04:05 | NUR ---
Thigh pain/Voiding, C/O rt thigh pain , gave Tylenol PO 650 Mg. was then able to sleep, not on tele, sitter in room for safety, moderate confusion, using BSC to void, voiding regularly with no difficulty , one person assist. oriented to self and place . Saline Locked , Room Air.
[2016-09-13 06:24] VITALS: BP 116/74; PULSE 72; RESP 16; O2SAT 98
[2016-09-13] MEDS ORDERED: ATOR40TA69 PO (07:27)
[2016-09-13] MEDS ORDERED: METO25TA6 PO (07:27)
[2016-09-13] MEDS ORDERED: ISOS30TA4 PO (07:27)
--- NOTE | 2016-09-13 07:32 | PCM.DIMED ---
Discharge Instructions Date of Service Sep 13, 2016 Dates of Hospitalization Sep 08, 2016 at 00:05 Discharge Diagnosis Discharge Diagnosis Non-ST elevation myocardial infarction; frequent falling episodes; weakness; dementia Medication Instructions New heart medicines isosorbide and metoprolol are prescribed. Your dose of atorvastatin has been increased. These prescriptions have been transmitted to the [facility]. Diet Heart Healthy Activity Home Health Phyical Therapy Patient Instructions Observe strict falling precautions (good lighting, no loose carpets or objects on floor) and provide 24-hour assistance with activities to reduce the chance of falling episodes. Aches and pains in the hips and ankles are likely due to chronic arthritis. Pain medications are likely to have undesirable risks. The strategy is to stay mobile and perform physical activities to strengthen muscles around arthritic joints. Follow-up Provider: Manny Montana MD Follow-up with PCP in: 1 week (contact PCP for a posthospitalization follow-up appointment) Provider: Malcolm Laura MD Follow-up in: Other (contact Dr. Laura's office for next available follow-up appointment) Bipin Blackwood MD Sep 13, 2016 07:32
[2016-09-13 07:34] VITALS: BP 114/60; PULSE 63; RESP 16; O2SAT 99
[2016-09-13] MEDS: Isosorbide Mononitrate 30 mg ER24 Tablet PO SCH (08:06)
--- NOTE | 2016-09-13 10:40 | NUR ---
Social Work: Discharge D: Pt discussed in am rounds. Pt is medically stable for discharge home today. Pt was able to ambulate with PT yesterday for approx. 55 feet with FWW. Recommendation is for home with HH and 10/02 care. HEATING UNIT MECHANIC met with pt's spouse to review dcp. He feels confident with his ability to provide care for pt at home and his preference is for [facility]. t/c to Angus with [facility] to notify that pt is being discharge. He will come to cook pickled meat F2F. EMR reviewed and discussed with ; no further Sw needs identified at this time. A: Pt who lives at home with her spouse who is primary caregiver. P: Anticipate pt to discharge home today via POV and [facility] for PT and ELAINE Fischer
--- NOTE | 2016-09-13 10:48 | NUR ---
Discharge Pt left with at 1045. IV removed, no tele. Discharge instructions gone over and understood by . New medication list given along with information. All questions answered. Prescription esent to [facility] pharmacy. All belongings taken with.
--- NOTE | 2016-09-13 18:22 | PCM.DC.MED ---
Discharge Summary Date of Service Sep 13, 2016 Dates of Hospitalization Date of Hospital Admission Sep 08, 2016 at 00:05 Date of Discharge: Sep 13, 2016 Providers: Admitting Physician: Angie Lobato DO Primary Care Physician: Manny Montana MD Attending Physician: Angie Lobato DO Diagnosis at Time of Discharge Diagnosis at Time of Discharge Non-ST elevation myocardial infarction; frequent falling episodes; weakness; dementia Consultations Cardiology, interventional and Dr. Meléndez Procedures XRay, CTs & MRIs DATE OF SERVICE: 04/27/16 0741 PROCEDURE: X-RAY CHEST ONE VIEW, PORTABLE ([id number]) IMPRESSION: No acute pulmonary process. Dictated by: Elizabeth Joseph M.D. on 04/27/2016 at 8:46 DATE OF SERVICE: 04/28/16 1306 PROCEDURE: CT BRAIN WITHOUT CONTRAST ([id number]) INDICATIONS: Fall; struck the back of her head IMPRESSION: 1. No acute intracranial finding. 2. Findings likely associated with chronic microvascular ischemic changes. Dictated by: Ela Woods M.D. on 04/28/2016 at 13:44 CT C-spine Impression: 1. No visualized fracture. Study type: CT no contrast Interpretation / Wet Read by: Interpret - Radiologist PROCEDURE: X-RAY LEFT ANKLE, MINIMUM THREE VIEWS ([id number]) IMPRESSION: No displaced fracture seen. If there is continued pain, followup exam or additional imaging such as MRI or CT could be performed for further assessment. Dictated by: Leroy Wright RR Interpreted: Elizabeth Joseph MD on 09/10/2016 at 13: 59 PROCEDURE: X-RAY PELVIS W/LAT HIP (LT) ([id number]) IMPRESSION: No fracture or dislocation. If clinical symptoms persist or clinical suspicion for pathology is high, a repeat examination in 7-10 days, or advanced imaging such as CT or MRI is suggested for further evaluation. Dictated by: Darlene Langford M.D. on 09/08/2016 at 8:48 . ECG 12 Lead ECG Interpretation: ST elevation of 1 mm in lead III. Global T wave inversion and ST depression new from prior ECG 04/27/16. Time: 21:33 Interpreted by: ED physician Normal ECG Interpretation: Normal rate (80), Normal sinus rhythm ECG Interpretation: NSR with a rate of 82. ST elevation in lead III. Voltage criteria for STEMI still not met. Whole clinical picture still suspicious for cardiac event. Time: 23:03 Interpreted by: ED physician Cardiac Echo Impression Echocardiogram Report Name: MIKI SAENZ I Study Date: 09/08/2016 Interpretation Summary Left ventricular systolic function is moderate to severely reduced. Left ventricular ejection fraction is estimated to be 25%. Compared to the prior exam, left ventricular function is significantly decreased. There is a large sized apical, septal, anteroseptal, inferior, and posterior wall motion abnormality with hypokinesis to akinesis of the segments. There are new LV wall motion abnormalities. Assessment of diastolic parameters suggests a pseudonormalization pattern, consistent with elevated filling pressures. The right ventricle grossly appears normal in size with probable normal systolic function. The left atrium is mildly dilated. Right atrial size is normal. There is mild to moderate mitral regurgitation. Compared to the prior echo study, there has been an increase in the severity of mitral regurgitation. There is no other significant valvular heart disease. The aortic root is normal size. . 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 Per , patient appears to have tripped on the edge of carpet, while he was looking away. Patient did not express head pain or chest pain. noticed blood on her neck and realized she had hit her head, decided to call EMS. denies any change in mental status after realizing she had fallen. Per EMS report the patient had no LOC and has a large hematoma to her R occiput. Patient had complained of some left leg pain and head pain in ED, although at time of this interview, she denies having any headaches, leg pain or chest pain. History is limited to husbands recollection of events, due to patient not able to recall incident. not aware of any cardiology follow up after last discharge. Patient was recently seen by her PCP on 08/29, no mention of cardiology appointment. In the ED, vitals: T36.8, P69, R19, BP157/60, 96% on RA. Labs significant for troponin 0.035, creatinine 1.05. UA, CXR, CT head negative. Xray of left hip with no fractures. 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 Dr. Meléndez to be called with any significant findings. Palliative care note 85-year-old female patient with dementia could been living with her tripped and fell at home striking her arm and her head. She had significant leg pain but this was not addressed until they finished their dinner and she was able to walk to the table. Her brought her to the emergency room and she was admitted Patient has history of ischemic heart disease as above. She was seen by palliative care in April during that hospitalization. Neither patient nor her recall this. Echocardiogram obtained this admission notes LV EF of 30% The patient apparently has not had any further chest pain shortness of breath edema or orthopnea at home. Her does not identify difficulty with management at home. He feels he has adequate support primarily from his jehovah's witness.. 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 He verbalizes distance from her 2 daughters. Hospital Course # Acute coronary syndrome, non-ST elevation myocardial infarction, present on admission. Acute. She had transient ST elevations of borderline significance, which reversed within 90 minutes. Troponin elevated suggesting non-ST elevation WA. Echocardiogram revealed areas of focal hypokinesis. software consultant elected for Optimizing medical management; clopidogrel, aspirin, statin - Iosorbide mononitrate 30 mg initiated on 09/10; no orthostatic symptoms - Low-dose beta derek initiated and well tolerated - continue statin - Follow-up in cardiology clinic, Dr. Laura # Supraventricular tachycardia. Heart rates have been 130-150 briefly. Blood pressure is stable. Electrolytes are normal. No evidence of ischemia. - Initiated low-dose metoprolol tartrate twice a day. # Frequent falling. Acute on chronic. There is no orthostatic hypotension despite metoprolol low dose and isosorbide low-dose. Her falling seems to be due to cognitive and degenerative joint issues. - Plan discharge with home health physical therapy # Mobility impairment. Acute left hip and ankle pain. History difficult to obtain from patient. Seems more like hip pain, but she is unwilling to bear much weight on ankle. X-rays unremarkable. 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 No evidence of acute inflammatory arthropathy. - Trial diclofenac topical gel to ankle; ankle subsequently minimally symptomatic; no ongoing prescription needed - Home health physical therapy # Urinary retention. Chronic. Frequent postvoid residuals of 500-600. Her chronic urinary pattern is been frequent small-volume, she is normally able to hold urine until voiding. - Bladder training and Continue scheduled void on commode at least every 4 hours. # Head hematoma, present on admission. Acute. CT head negative for any acute process - Plavix and ASA continued. # Acute kidney injury, present on admission. Acute. - baseline creatinine 0.8 - lisinopril resume at discharge # Advanced dementia, present on admission. Stable. Palliative care consult obtained. - UA, CT head negative Exam Vital Signs (Last) Date Time Temp Pulse Resp B/P Pulse Ox O2 Delivery O2 Flow Rate FiO2 09/13/16 07:34 36.3 63 16 114/60 99 Room Air 09/12/16 04:30 1.00 Test 09/07/16 18:39 09/07/16 20:31 09/08/16 14:30 09/09/16 10:33 Prothrombin Time 11.1sec (8.1-12.5) Prothromb Time International Ratio 1.04ratio Hemoglobin A1c 5.7% (4.8-5.6) Total Bilirubin 0.2mg/dL (0.0-1.2) Aspartate Amino Transf (AST/SGOT) 15U/L (0-50) Alanine Aminotransferase (ALT/SGPT) 14U/L (0-32) Alkaline Phosphatase 66U/L (25-165) Total Protein 6.8g/dL (6.4-8.4) Albumin 3.7g/dL (3.4-5.0) Urine Color Yellow (YELLOW) Urine Appearance Clear (CLEAR,HAZY) Urine pH 6.5 (5.0-8.0) Urine Specific [place] 1.020 (1.003-1.035) Urine Protein Negativemg/dL (NEG,TRACE) Urine Glucose (UA) Negativemg/dL (NEGATIVE) Urine Ketones Negativemg/dL (NEGATIVE) Urine Occult Blood Negative (NEGATIVE) Urine Nitrite Negative (NEGATIVE) Urine Bilirubin Negative (NEGATIVE) Urine Urobilinogen Normalmg/dL (NORMAL) Urine Leukocyte Esterase Negative (NEGATIVE) Urine RBC 0-2/hpf (0-2) Urine WBC 0-5/hpf (0-5) Urine Epithelial Cells Occasional/hpf (NONE-MOD) Urine Crystals None seen (NONE SEEN) Urine Bacteria None/hpf (NONE-FEW) Urine Hyaline Casts None/lpf (NONE) Urine Granular Casts None seen (NONE SEEN) Urine Waxy Casts None seen (NONE SEEN) Urine Red Blood Cell Casts None seen (NONE SEEN) Urine White Blood Cell Casts None seen (NONE SEEN) Urine Mucus None seen (None Seen) Urine Trichomonas None seen (NONE SEEN) Urine Yeast None (NONE SEEN) Urinalysis Comment None Urine Culture Reflexed Not indicated Total Creatine Kinase 232U/L (21-215) Creatine Kinase MB 20.2ng/mL (0.0-5.3) Creatine Kinase MB % 8.7% (0.0-5.0) Troponin T 0.466ug/L (0.0-0.011) Test 09/10/16 03:35 09/11/16 02:55 09/12/16 03:45 Magnesium Level 2.1mg/dL (1.6-2.6) Activated Partial Thromboplast Time 29.1sec (22.8-33.0) Sodium Level 136mEq/L (134-144) Potassium Level 3.9mEq/L (3.5-5.2) Chloride Level 99mEq/L (97-108) Carbon Dioxide Level 22mmol/L (18-29) Blood Urea Nitrogen 18mg/dL (8-27) Creatinine 0.83mg/dL (0.57-1.00) Estimat Glomerular Filtration Rate 94mL/min (>59) Glucose Level 113mg/dL (60-99) Calcium Level 8.7mg/dL (8.5-10.1) White Blood Count 7.0th/mm3 (3.8-10.1) Red Blood Count 3.33mil/mm3 (3.90-5.20) Hemoglobin 11.0g/dL (12.0-15.6) Hematocrit 33.6% (35.0-46.0) Mean Corpuscular Volume 100.9fL (81-100) Mean Corpuscular Hemoglobin 33.0pg (27.0-35.0) Mean Corpuscular Hemoglobin Concent 32.7% (32.0-37.0) Red Cell Distribution Width 12.8% (12.3-15.4) Platelet Count 135bil/L (150-400) Neutrophils (%) (Auto) 71.9% (40-74) Lymphocytes (%) (Auto) 12.1% (14-46) Monocytes (%) (Auto) 12.6% (4-12) Eosinophils (%) (Auto) 3.0% (0-5) Basophils (%) (Auto) 0.3% (0-3) Discharge Medications Discharge Medications Ascorbic Acid (Vitamin C) 1,000 Mg Tab.chew 1,000 MG PO DAILY (Reported) Aspirin (Aspirin) 81 Mg Tablet 81 MG PO DAILY (Reported) Atorvastatin Calcium (Atorvastatin Calcium) 40 Mg Tablet 40 MG PO HS Prescribed by: ANTONI DESOUZA MD Clopidogrel (Clopidogrel) 75 Mg Tablet 75 MG PO DAILY Prescribed by: PRATIK ELMORE DO Isosorbide MN ER (Isosorbide MN ER) 30 Mg Tab.er.24h 30 MG PO 0730 Prescribed by: ANTONI DESOUZA MD Lisinopril (Lisinopril) 5 Mg Tablet 5 MG PO HS Prescribed by: PRATIK ELMORE DO Lutein (Lutein) 20 Mg Tablet 20 MG PO DAILY (Reported) Metoprolol Tartrate (Metoprolol Tartrate) 25 Mg Tablet 12.5 MG PO BID Prescribed by: ANTONI DESOUZA MD Multivitamin (Multivitamins) 1 Each Capsule 1 EACH PO DAILY (Reported) Additional med instructions New heart medicines isosorbide and metoprolol are prescribed. Your dose of atorvastatin has been increased. These prescriptions have been transmitted to the [facility] pharmacy. Followup Plan Disposition: Home with home health services RN and PT. Her was advised to obtain additional 24-hour assistance if possible. Discharge Diet: Heart Healthy Discharge Activity: Home Health Phyical Therapy Patient Instructions Observe strict falling precautions (good lighting, no loose carpets or objects on floor) and provide 24-hour assistance with activities to reduce the chance of falling episodes. Aches and pains in the hips and ankles are likely due to chronic arthritis. Pain medications are likely to have undesirable risks. The strategy is to stay mobile and perform physical activities to strengthen muscles around arthritic joints. Follow-up Provider: Manny Montana MD Follow-up with PCP in: 1 week (contact PCP for a posthospitalization follow-up appointment) Provider: Malcolm Laura MD Follow-up in: Other (contact Dr. Laura's office for next available follow-up appointment) Time spent 35 minutes copies to: Manny Montana MD; Malcolm Laura MD, Jeffrey W MD Sep 13, 2016 08:43
== END 2016-09-13 10:47 | disposition home health service (06) | DRG 281 ==
LOC: SED 17:40 → EDBD 17:40 → EDUNIT# 17:40 → CCU 09-08 00:05 → PCC 09-08 18:38
PROVIDERS: ADMIT Internal Medicine; ATTEND Internal Medicine
DX: I21.4 Non-ST elevation (NSTEMI) myocardial infarction (principal); I47.1 Supraventricular tachycardia; N17.9 Acute kidney failure, unspecified; I24.9 Acute ischemic heart disease, unspecified; S00.03XA Contusion of scalp, initial encounter; S00.11XA Contusion of right eyelid and periocular area, initial encounter; R33.9 Retention of urine, unspecified; I25.5 Ischemic cardiomyopathy; Z79.82 Long term (current) use of aspirin; W01.10XA Fall on same level from slipping, tripping and stumbling with subsequent striking against unspecified object, initial encounter; Y93.9 Activity, unspecified; Y92.019 Unspecified place in single-family (private) house as the place of occurrence of the external cause; Y99.9 Unspecified external cause status; F03.90 Unspecified dementia, unspecified severity, without behavioral disturbance, psychotic disturbance, mood disturbance, and anxiety; Z51.5 Encounter for palliative care; Z66 Do not resuscitate; R29.6 Repeated falls

== ENCOUNTER 2016-10-27 06:42 | Inpatient (IN) | payer MEDICARE ==
[~2016-10-27] VITALS: Ht 162.6 cm; Wt 62.1 kg
[~2016-10-27 06:42] MED LIST changes: +ATOR40TA69 PO; -ATRV10T PO; +ISOS30TA4 PO; +METO25TA6 PO
[2016-10-27 06:44] VITALS: BP 124/58; PULSE 84; RESP 22; O2SAT 95
--- NOTE | 2016-10-27 07:13 | ED.REPORT ---
HPI-Dyspnea / Wheezing Date of Service Oct 27, 2016 ED Provider: Kimani Magaña MD 86 year old demented female with a history of STEMI, NSTEMI, SVT, anemia, and HTN presents to the ER via EMS due to two weeks of worsening cough and generalized weakness. Weakness worsened markedly last night around 12:00, when had difficulty transferring patient between the toilet and her bed. denies fever, chills, and chest pain. He denies shortness of breath, but endorses tachypnea which is typical baseline. Associated symptoms of weight loss, and lower extremity swelling. Medics report that they were called to the patient's residence by the patient's who was unable to get the patient out of bed this morning. Patient denies any fever, chills, diaphoresis, chest pain, changes in speech, visual changes, and lateralized weakness, though her responses are limited due to her underlying dementia. states that patient's PCP, Dr. Montana, informed them that current symptoms can be called by Lisinopril, and discontinued all medications except Metoprolol two weeks ago. Patient lives with and is seen weekly by home health. Nursing Notes Stated Complaint: COUGH,WEAKNESS Chief Complaint: General Complaint Nursing Notes Reviewed: Yes ([employer], [employer] not recondicled) Allergies: Coded Allergies: Penicillins (Verified Allergy, Unknown, 12/02/14) Sulfa (Sulfonamide Antibiotics) (Verified Allergy, Unknown, UNKNOWN, ) Scheduled Ascorbic Acid (Vitamin C) 1,000 Mg Tab.chew 1,000 MG PO DAILY Aspirin (Aspirin) 81 Mg Tablet 81 MG PO DAILY Clopidogrel (Clopidogrel) 75 Mg Tablet 75 MG PO DAILY Lutein (Lutein) 20 Mg Tablet 20 MG PO DAILY Metoprolol Tartrate (Metoprolol Tartrate) 25 Mg Tablet 12.5 MG PO BID Multivitamin (Multivitamins) 1 Each Capsule 1 EACH PO DAILY Miscellaneous Medications Losartan Potassium (Losartan Potassium) 25 Mg Tablet 25 MG PO General Time Seen by MD: 06:58 Chief Complaint Cough Hx Obtained From: Patient Arrived By: Ambulance Sudden in Onset?: No Onset Occurred: More than a week ago... (2 weeks) Symptom Duration: Since onset Associated with: Denies: Diaphoresis, Fever, Nausea Pertinent Negative: Pt denies other symptoms Similar Sx Previous: No Past Medical History Past Medical History Notes: Admitted September 08-2016 for N STEMI, frequent falling, weakness - please also see palliative care consult during that admission Echocardiogram August 2016, EF 25%, large apical, septal, anteroseptal, inferior, and posterior wall motion abnormalities with hypokinesis to akinesis with new left ventricular wall motion abnormalities Past Medical History Dementia Anemia ST-segment elevation myocardial infarction April 2016 N STEMI August 2016 SVT hypertension Thrombocytopenia Past Surgical History Reports: Angioplasty, Cholecystectomy, Hysterectomy Smoking History Never Smoker Social History See palliative care consult August 2016, DO NOT RESUSCITATE/DO NOT RESUSCITATE Alcohol Use: Denies alcohol use Drug Use: Denies drug use Other Social History: Good social support Ambulatory Status Independent Review of Systems Constitutional: Reports: Weakness - generalized, Denies: Chills, Fever Respiratory: Reports: Non-productive cough, Denies: Shortness of breath Cardiovascular: Denies: Chest pain Skin: Denies Diaphoresis Complete sys rev & neg: except as marked. Neurologic: Reports: Weakness, Denies: Focal weakness, Slurred speech, Vision change Physical Exam Physical Exam Notes: Initial Vital Signs Vital Signs (First) Date Time Temp Pulse Resp B/P Pulse Ox O2 Delivery O2 Flow Rate FiO2 10/27/16 06:44 37.1 84 22 124/58 95 Room Air Initial VS: Reviewed, Vital signs normal Head / Eyes: Atraumatic, Normocephalic Abdomen / GI: Soft, Non-tender, No guarding, No rebound, No distention Extremities: Vascular intact, Neuro intact, No swelling, No tenderness Skin: Warm, Dry, No cyanosis General/Constitutional: Awake, Alert, Well developed Alertness: Positive: Confused Appearance / Presentation: Positive: Frail So weak it is difficult to understand her voice though she reports no change in speech. Neck: Atraumatic, Supple, No meningismus, Full range of motion, No swelling, Non-tender, No masses Respiratory / Chest: No rales, No rhonchi, No wheezing Persistent hacking cough. No dyspnea or respiratory distress. Decreased breath sounds in the left lung field at the base. Cardiovascular: Heart rate NL, Regular rhythm, Heart sounds NL, No murmurs, Peripheral circulation NL Lower Ext Edema: Positive: Bilateral 1+, Bilateral 2+, Pitting Interpretation & Diagnostics Lab Results Interpretation Result Diagram: 10/27/16 0737 10/27/16 0737 Test 10/27/16 07:37 10/27/16 07:45 10/27/16 09:13 White Blood Count 8.4th/mm3 (3.8-10.1) Red Blood Count 3.93mil/mm3 (3.90-5.20) Hemoglobin 12.8g/dL (12.0-15.6) Hematocrit 38.7% (35.0-46.0) Mean Corpuscular Volume 98.5fL (81-100) Mean Corpuscular Hemoglobin 32.6pg (27.0-35.0) Mean Corpuscular Hemoglobin Concent 33.1% (32.0-37.0) Red Cell Distribution Width 13.8% (12.3-15.4) Platelet Count 152bil/L (150-400) Neutrophils (%) (Auto) 72.2% (40-74) Lymphocytes (%) (Auto) 10.4% (14-46) Monocytes (%) (Auto) 15.6% (4-12) Eosinophils (%) (Auto) 0.8% (0-5) Basophils (%) (Auto) 0.4% (0-3) Sodium Level 135mEq/L (134-144) Potassium Level 5.0mEq/L (3.5-5.2) Chloride Level 101mEq/L (97-108) Carbon Dioxide Level 16mmol/L (18-29) Blood Urea Nitrogen 25mg/dL (8-27) Creatinine 0.82mg/dL (0.57-1.00) Estimat Glomerular Filtration Rate 95mL/min (>59) Glucose Level 110mg/dL (60-99) Lactic Acid Level 1.5mmol/L (0.4-2.0) Calcium Level 8.6mg/dL (8.5-10.1) Magnesium Level 2.2mg/dL (1.6-2.6) Total Bilirubin 0.5mg/dL (0.0-1.2) Aspartate Amino Transf (AST/SGOT) 20U/L (0-50) Alanine Aminotransferase (ALT/SGPT) 10U/L (0-32) Alkaline Phosphatase 69U/L (25-165) Troponin T < 0.010ug/L (0.0-0.011) Total Protein 6.3g/dL (6.4-8.4) Albumin 3.4g/dL (3.4-5.0) Pro-B-Type Natriuretic Peptide 14459sf/mL (0-738) Urine Color Yellow (YELLOW) Urine Appearance Hazy (CLEAR,HAZY) Urine pH 5.0 (5.0-8.0) Urine Specific [place] 1.016 (1.003-1.035) Urine Protein Negativemg/dL (NEG,TRACE) Urine Glucose (UA) Negativemg/dL (NEGATIVE) Urine Ketones Negativemg/dL (NEGATIVE) Urine Occult Blood Negative (NEGATIVE) Urine Nitrite Negative (NEGATIVE) Urine Bilirubin Negative (NEGATIVE) Urine Urobilinogen Normalmg/dL (NORMAL) Urine Leukocyte Esterase Moderate (NEGATIVE) Urine RBC 0-2/hpf (0-2) Urine WBC >50/hpf (0-5) Urine Epithelial Cells Few/hpf (NONE-MOD) Urine Crystals None seen (NONE SEEN) Urine Bacteria Many/hpf (NONE-FEW) Urine Hyaline Casts None/lpf (NONE) Urine Granular Casts None seen (NONE SEEN) Urine Waxy Casts None seen (NONE SEEN) Urine Red Blood Cell Casts None seen (NONE SEEN) Urine White Blood Cell Casts None seen (NONE SEEN) Urine Mucus None seen (None Seen) Urine Trichomonas None seen (NONE SEEN) Urine Yeast None (NONE SEEN) Urinalysis Comment None Urine Culture Reflexed Indicated Lab Results Interpretation: CBC normal CMP low CO2 Troponin negative Lactic acid negative Magnesium normal BNP severely elevated ECG Interpretation ECG Interpretation: Sinus rhythm No acute ischemia T wave inversion and marginal ST depression v4, v5, and v6 unchanged from 08/2016 Time: 08:45 Interpreted by: ED physician X-Ray Chest Interpretation Chest Xray Interpretation: IMPRESSION: Dense left basilar pneumonia. Recommend radiographic followup to document resolution and exclude underlying pulmonary nodule Dictated by: Hosea Sheridan M.D. on 10/27/2016 at 8:05 Approved by: Hosea Sheridan M.D. on 10/27/2016 at 8:06 View: Portable, 1 view Interpretation / Wet Read by: Interpret - Radiologist Re-Eval/Medical Decision Med Decision/Clinical Course This is an 86-year-old female who was admitted in April with a STEMI, and readmitted in August with an N STEMI, who was brought with a worsening cough for several weeks, and increasing global weakness to the point that the could not even help her get out of bed. DO NOT RESUSCITATE/DO NOT INTUBATE- please see the palliative care consult from August. The patient cannot provide useful history. The cough was initially thought to be secondary lisinopril which was discontinued-out of the cough has persisted. According to the the rest of her medicines, all except for her metoprolol have also bitten discontinued over the reports he still been giving her aspirin. There is been no clear complaint of fever. The does think the cough has been worsening. On exam the patient does have a noticeable, persistent cough. She is significantly demented and unable to write much additional history. However Cipro and cough she does not appear in visible distress. No interval change on EKG or acute ischemia is appreciated, previously identified lateral changes remained persistent. Chest x-ray reveals density in the left side, please see the radiologist's report, I am clinically strongly suspicious for CHF of the left pleural effusion is the main etiology here. Clinically, pneumonia seems much less likely. Additionally laboratory studies are supportive of CHF as well, with no markers of infection. The patient was started on diuretics, can currently she is not on anything- received 20 mg did start to diurese. She is too globally weak to consider fo safe discharge back to home, and I was part of the reason for presentation today. She is being admitted for continued management, cases been discussed the hospitalist. Source of Hx: Old records Re-Evaluation/Progress : Time of Eval: 08:56 Re-Evaluation/Progress Note: Patient's is now present at bedside. Discussed lab and imaging results and need for admission. is amenable to the plan. All other questions addressed. 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, Agrees with plan, Accepts admit Counseled Regarding: Diagnosis, Lab results, Need for admission Discharge & Departure Impression: Primary Impression: Pleural effusion, left Additional Impressions: CHF (congestive heart failure) Congestive heart failure type: unspecified congestive heart failure type Congestive heart failure chronicity: acute on chronic Qualified Code: I50.9 - Heart failure, unspecified Weakness generalized Disposition: ADMITTED TO HOSPITAL Discharge Condition All VS Reviewed: Yes Condition: Stable Referrals: Manny Mnotana MD (PCP) Scribe Attestation Portions of this note were transcribed by Ger Jones. I, Dr. Magaña, personally performed the history, physical exam and medical decision-making; I reviewed and confirmed the accuracy of the information in the transcribed note. Signed by: Shanell Kam, 10/27/2016 and 09:44 copies to: Manny Montana MD, Matthew F MD Oct 27, 2016 07:13 GER JONES Oct 27, 2016 07:25 Eloy Russo Oct 27, 2016 08:42
[2016-10-27] MEDS ORDERED: Furosemide 10 mg/mL 4 mL Inj IVPUSH ONE ×2 (07:40→20:30)
[2016-10-27 07:54] LABS: BASOPHILS % (AUTO) 0.4 % (0-3); EOSINOPHILS % (AUTO) 0.8 % (0-5); MONOCYTES % (AUTO) 15.6 % (4-12); Mean Corpuscular Hemoglobin 32.6 pg (27.0-35.0); Mean Corpuscular Volume 98.5 fL (81-100); NEUTROPHILS % (AUTO) 72.2 % (40-74); Platelet Count 152 bil/L (150-400)
--- NOTE | 2016-10-27 08:08 | DRSVH ---
PROCEDURE: X-RAY CHEST ONE VIEW, PORTABLE ([id number]) INDICATIONS: cough, sob TECHNIQUE: One view of the chest was acquired. COMPARISON: None. FINDINGS: Surgical changes and devices: None. Lungs and pleura: No pneumothorax. Dense left basilar consolidation. Cannot exclude small left pleur al effusion. Mediastinum: Mediastinal contours appear normal. Heart size is normal. Bones and chest wall: No suspicious bony lesions. Overlying soft tissues appear unremarkable. IMPRESSION: Dense left basilar pneumonia. Recommend radiographic followup to document resolution and exclude unde rlying pulmonary nodule Dictated by: Hosea Sheridan M.D. on 10/27/2016 at 8:05 Approved by: Hosea Sheridan M.D. on 10/27/2016 at 8:06
[2016-10-27 08:35] LABS: TROPONIN T < 0.010 ug/L (0.0-0.011)
[2016-10-27 09:27] LABS: APPEARANCE,URINE HAZY (CLEAR,HAZY); COLOR,URINE YELLOW (YELLOW); OCCULT BLOOD,URINE NEGATIVE (NEGATIVE); UROBILINOGEN,URINE NORMAL (NORMAL)
[2016-10-27] MEDS ORDERED: LOSA25TA21 PO (09:37)
[2016-10-27] MEDS ORDERED: Alum-Mag Hydrox-Simeth 30 mL Suspension PO PRN ×2 (09:50)
[2016-10-27] MEDS ORDERED: Ondansetron 2 mg/mL 2 mL Inj IVPUSH PRN ×2 (09:50)
--- NOTE | 2016-10-27 10:53 | NUR ---
Admission Pt arrived on [facility], alert self and spouse, very dry cough. Denies SOB and increased pain. Spouse at bedside assisting with admission. 2 per max assist with gait belt to bed.
[2016-10-27 11:16] VITALS: BP 128/74; PULSE 88; RESP 22; O2SAT 94
[2016-10-27 11:23] VITALS: PULSE 91
[2016-10-27] MEDS ORDERED: Polyethylene Glycol (PEG) 17 Gm Powder PO PRN (11:45)
--- NOTE | 2016-10-27 13:00 | NUR ---
Evaluation completed. Please go to "Notes" then click on "Assessments and Notes" (bottom left corner of screen). Then select appropriate discipline tab on top of screen.
[2016-10-27] MEDS: Sodium Chloride LOK Flush 10 mL Syringe IVFLUSH SCH ×2 (15:14→16:48)
[2016-10-27] MEDS: Heparin 5,000 Unit/mL Inj SUBQ SCH ×2 (15:14→16:30)
[2016-10-27 17:46] VITALS: BP 137/83; PULSE 94; RESP 20; O2SAT 93
--- NOTE | 2016-10-27 18:30 | NUR ---
SVTx2 Per painting technician, SVT with HR in the 150s x 2, lasting 12 secs, pt is resting quietly, asymptomatic. aware. Give HS PO Metoprolol now. Addendum: 10/27/16 at 1918 by DAYNE JEFF RN ON-coming ANUPAM aware of need to administer medication
[2016-10-27 20:00] VITALS: PULSE 100
[2016-10-27 20:28] VITALS: BP 124/73; PULSE 80; RESP 18; O2SAT 92
--- NOTE | 2016-10-27 21:58 | PCM.HPMED ---
Subjective Date of Service Oct 27, 2016 Primary Provider: Admitting Physician: Halley Garrison DO Primary Care Physician: Manny Montana MD Attending Physician: Halley Garrison DO Admit Status: From the Emergency Department Chief Complaint: Weakness History of Present Illness: This is a 86-year-old female with past medical history of dementia CAD status post [place], SVT, hypertension, angioplasty and Coronary stents is presenting to the emergency room as her found her to be for him to wake her up and transfer her out of the bed. Patient appears to be aware of her 's name, mumbling a lot but otherwise fairly nonverbal. She kept taking off a mask that Staff put on her for her cough off. Patient was discharged from the hospital recently on lisinopril, Plavix, aspirin , metoprolol but apparently at the time of admission to ED she is only on metoprolol. Her cough is worse, edema is worse now she cannot get up from bed. In the ER chest x-ray showed left pleural effusion questionable left fascicular pneumonia, white count is normal BNP is elevated at 22,000 and troponin within normal EKG shows no changes from before. Prior echo performed on August 2016 shows 25% ejection fraction and severe hypokinesis her vital signs were stable states that patient's PCP, Dr. Montana, informed them that current symptoms can be called by Lisinopril, and discontinued all medications except Metoprolol two weeks ago. Patient lives with and is seen weekly by home health. Patient is admitted to the hospital or CHF management and possible left versus home palliative care. Review of Systems: Patient was unable to provide review of systems Allergies Coded Allergies: Penicillins (Verified Allergy, Unknown, 12/02/14) Sulfa (Sulfonamide Antibiotics) (Verified Allergy, Unknown, UNKNOWN, ) PMH Remarkable for dementia STEMI SVT hypertension angioplasty stents Surgical History In the angioplasty, stents, cholecystectomy and hysterectomy Family History Sr. of dementia, one sister with cancer, mother of cancer and another sister of DE Social History Hx Alcohol Use: No Hx Substance Use: No Hx Tobacco Use: No Smoking Status: Never Smoker Living Arrangement: with Family Exam Vital Signs Vital Sign - Last Date Time Temp Pulse Resp B/P Pulse Ox O2 Delivery O2 Flow Rate FiO2 10/27/16 20:28 37.1 80 18 124/73 92 Room Air Exam Gen.: Female in no acute distress coughing HEENT: Normocephalic/atraumatic Heart regular rate and rhythm no S3-S4 murmurs Lungs bilateral crackles no wheezes Abdomen nontender nondistended normal bowel sounds extremities 1+ pitting edema Neurological: Cognitive deficits as above Psych: Negative for anxiety Lab and Diagnostics Result Diagram: 10/27/1637 10/27/16 07 X-Rays, CTs and MRIs [facility] Diagnostic [place] [address] Patient Name: MIKI SAENZ I MR#: [id number] Location: [facility] [place] Ordering Phys: Kimani Magaña MD Date of Service: 10/27/16 0708 PROCEDURE: X-RAY CHEST ONE VIEW, PORTABLE ([id number]) INDICATIONS: cough, sob TECHNIQUE: One view of the chest was acquired. COMPARISON: None. FINDINGS: Surgical changes and devices: None. Lungs and pleura: No pneumothorax. Dense left basilar consolidation. Cannot exclude small left pleural effusion. Mediastinum: Mediastinal contours appear normal. Heart size is normal. Bones and chest wall: No suspicious bony lesions. Overlying soft tissues appear unremarkable. IMPRESSION: Dense left basilar pneumonia. Recommend radiographic followup to document resolution and exclude underlying pulmonary nodule Dictated by: Hosea Sheridan M.D. on 10/27/2016 at 8:05 Approved by: Hosea Sheridan M.D. on 10/27/2016 at 8:06 Assessment & Plan Acute assessments: #1 acute on chronic systolic heart failure: -- Patient was initially diuresed with IV Lasix, she exhibited SVT on the environmental monitoring specialist this afternoon we decided to order further diuresis. Metoprolol dose is increased to 20 mg twice a day -- Give patient losartan instead of lisinopril continue home statin and aspirin , Plavix -- Telemonitoring, morphine when necessary, oxygen when necessary -- Daily weights, and accurate ins and outs -- Echocardiogram in August 2016 showed 25 % Ef -- Consult palliative care in the a.m. for goals of care discussion, involved discharge planners for skilled nursing placement versus home palliative care -- We will start patient on Lasix 40 mg daily by mouth #2 cough. -- Likely due to CHF -- Tessalon Perles for symptomatic relief Chronic assessments: #1 CAD: Continue Aspirin, metoprolol, losartan #2 CHF, systolic: Continue Metoprolol lisinopril and statin #3 SVT: Continue metoprolol CODE STATUS: DNR/DNI Alternate decision-maker: Disposition: Most likely to skilled nursing versus home palliative care GI Prophylaxis: H2 derek VTE Prophylaxis: Sub-Q Enoxaparin Resuscitation Status: DNR/DNI:Do Not Resuscitate/Intubate Halley Garrison DO Oct 27, 2016 21:58
[2016-10-28] VITALS (7 sets, daily range): BP systolic 115–126; BP diastolic 73–81; PULSE 79–98; RESP 16–20; O2SAT 93–98
[2016-10-28] MEDS: Sodium Chloride LOK Flush 10 mL Syringe IVFLUSH SCH ×3 (00:52→17:28)
[2016-10-28] MEDS: Heparin 5,000 Unit/mL Inj SUBQ SCH ×3 (00:52→17:28)
--- NOTE | 2016-10-28 02:42 | NUR ---
aspiration precautions crushed medications. given with apple sauce aspiration precautions in place patient compliant with swallowing mediations. no signs of aspiration.
--- NOTE | 2016-10-28 05:59 | DRSVH ---
PROCEDURE: US VEINOUS LEG DUPLEX UNILATERAL, LEFT INDICATIONS: swelling LLE ro DVT TECHNIQUE: Real-time imaging, as well as color and pulse Doppler interrogation, were performed of the lower extr emity deep veins from the inguinal ligament to the popliteal fossa. COMPARISON: None. FINDINGS: The deep veins are normally compressible, and free of intraluminal thrombus. Color and pu lse Doppler demonstrate normal phasic intraluminal flow. There is normal augmentation response to di stal compression maneuver. IMPRESSION: No evidence of deep venous thrombosis. Dictated by: Hosea Sheridan M.D. on 10/27/2016 at 13:55 Approved by: Hosea Sheridan M.D. on 10/27/2016 at 13:56
[2016-10-28 06:31] LABS: BASOPHILS % (AUTO) 0.1 % (0-3); EOSINOPHILS % (AUTO) 0.4 % (0-5); MONOCYTES % (AUTO) 12.8 % (4-12); Mean Corpuscular Hemoglobin 32.5 pg (27.0-35.0); Mean Corpuscular Volume 99.1 fL (81-100); NEUTROPHILS % (AUTO) 75.7 % (40-74); Platelet Count 152 bil/L (150-400)
[2016-10-28] MEDS ORDERED: Non-Formulary Medication (Multivitamin (Multivitamins) 1 EACH) PO SCH (08:30)
--- NOTE | 2016-10-28 11:24 | NUR ---
Med Rec Med Rec completed with med list from . Pt. is currently on 3 medications (Metoprolol Tartrate, Vitamin C, and Aspirin). Primary nurse, Ana Gongora RN was notified of Med Rec update. Primary nurse to notify doctor about updated med list.
[2016-10-28] MEDS: cefTRIAXone 2,000 mg/D5W 50 mL IV Minibag Plus IV SCH ×2 (11:40)
[2016-10-28] MEDS: Isosorbide Mononitrate 30 mg ER24 Tablet PO SCH (13:38)
--- NOTE | 2016-10-28 17:15 | NUR ---
Constipation/PO intake Pt has decreased PO intake, ate 50% of breakfast and bites of lunch and dinner. Per Royce (spouse) pt does not feel she is able to consume any additional meals until she has been able to have a bowel movement. Pt offered PO medications for constipation, pt declined. Offered prune juice. pt accepted, NT prune juice given,. Will continue to monitor.
[2016-10-28] MEDS: MeTOProlol XL 25 mg ER24 Tablet PO SCH (20:18)
[2016-10-29] VITALS (13 sets, daily range): BP systolic 100–130; BP diastolic 60–80; PULSE 64–160; RESP 16–18; O2SAT 91–95
--- NOTE | 2016-10-29 00:10 | PCM.PNMED ---
Subjective Date of Service Oct 29, 2016 Subjective The patient has no new complaints. states that he has to feed her if she is unable to manage a utensil in her right hand. The patient herself has no new complaints. Exam Vital Signs Vital Sign - Last Date Time Temp Pulse Resp B/P Pulse Ox O2 Delivery O2 Flow Rate FiO2 10/28/16 22:28 36.8 91 18 93 Room Air Intake and Output 10/28/16 10/28/16 10/29/16 Cumulative From/Thru 15:00 23:00 07:00 10/27/16 15:44 - 10/28/16 20:40 Intake Total 450 ml 800 ml Output Total 300 ml Balance 450 ml 500 ml Intake Oral 450 ml 800 ml Output Urine Total 300 ml # Voids 4 7 # Bowel Movements 0 0 Exam General: Patient is in no apparent distress HEENT: Head is atraumatic and normocephalic. Eyes: Pupils are equally round and reactive to light and accommodation. Extraocular muscles are intact. Sclera are white, anicteric. Subconjunctival mucosa is pink. Ears and nose are unremarkable. Oropharynx: There is no mucosal lesions, there is no thrush, there is no pharyngitis. Neck: Is supple, there are no nodes, or masses or tenderness. Chest: Is clear to auscultation and percussion. There are no rales, rhonchi, wheezes or rubs. Heart: Rate, rhythm is regular. There is no murmur, rub or gallop. Abdomen: Good bowel sounds are present. Abdomen is soft, nontender, no organomegaly or masses were appreciated. Extremities: Are symmetrical and well perfused. There is minimal edema, there is no cellulitis, no rash. Neurologic: There is evidence of dementia. Patient appears pleasantly demented. There is generalized weakness more pronounced on the left side. There is some cogwheel rigidity. Psychiatric: Patients mood is calm and shows no sign of agitation. Genital: Deferred Rectal: Deferred Lab and Diagnostics Result Diagram: 10/28/1660910/28/16609 Microbiology Name: MIKI SAENZ I Age/Sex: 86/F Attend Dr: Halley Garrison DO Acct: [id number] Unit: [id number] Status: ADM IN Location: [facility] [place] 3020-1 Re10/27/16 Disch: Specimen: [id number] Collected: 10/27/16 Status: RES Req#: [id number] Received: 10/27/16 Source: URINE CC Sp Desc : Neeraj Dr: Kimani Magaña MD Ordered: URINE CULT Procedure Result Verified Site Microbiology ERICKA CULT URINE Preliminary 10/28/16 PRELIMINARY ID GRAM NEG CAREY, PROBABLE E COLI SUSCEPTIBILITIES TO FOLLOW COLONY COUNT/QUANTITY >100,000 CFU/ml X-Rays, CTs and MRIs [facility] Diagnostic [place] [address] Patient Name: MIKI SAENZ I MR#: [id number] Location: [facility] [place] Ordering Phys: Kimani Magaña MD Date of Service: 10/27/16 0708 PROCEDURE: X-RAY CHEST ONE VIEW, PORTABLE ([id number]) INDICATIONS: cough, sob TECHNIQUE: One view of the chest was acquired. COMPARISON: None. FINDINGS: Surgical changes and devices: None. Lungs and pleura: No pneumothorax. Dense left basilar consolidation. Cannot exclude small left pleural effusion. Mediastinum: Mediastinal contours appear normal. Heart size is normal. Bones and chest wall: No suspicious bony lesions. Overlying soft tissues appear unremarkable. IMPRESSION: Dense left basilar pneumonia. Recommend radiographic followup to document resolution and exclude underlying pulmonary nodule Dictated by: Hosea Sheridan M.D. on 10/27/2016 at 8:05 Approved by: Hosea Sheridan M.D. on 10/27/2016 at 8:06 PROCEDURE: US VEINOUS LEG DUPLEX UNILATERAL, LEFT INDICATIONS: swelling LLE ro DVT TECHNIQUE: Real-time imaging, as well as color and pulse Doppler interrogation, were performed of the lower extremity deep veins from the inguinal ligament to the popliteal fossa. COMPARISON: None. FINDINGS: The deep veins are normally compressible, and free of intraluminal thrombus. Color and pulse Doppler demonstrate normal phasic intraluminal flow. There is normal augmentation response to distal compression maneuver. IMPRESSION: No evidence of deep venous thrombosis. Dictated by: Hosea Sheridan M.D. on 10/27/2016 at 13:55 Approved by: Hosea Sheridan M.D. on 10/27/2016 at 13:56 Assessment & Plan This is a 86-year-old female with past medical history of dementia, CAD, status post [place], SVT, hypertension, angioplasty and Coronary stents, who presented to the [facility] emergency room as her found it difficult to wake her up and transfer her out of the bed. Patient appeared to be aware of her 's name, mumbling a lot but otherwise fairly nonverbal. Patient was discharged from the hospital recently on lisinopril, Plavix, aspirin , metoprolol but apparently at the time of admission to ED she is only on metoprolol. Apparently her primary care doctor Dr. Montana discontinued all of her medications except for metoprolol 2 weeks prior to admission Her cough was worse, edema was worse and now she could not get up from bed. In the ER chest x-ray showed left pleural effusion and findings consistent with possible left lower lobe pneumonia, white count is normal BNP is elevated at 22, 000 and troponin within normal EKG shows no changes from before. Prior echo performed on August 2016 shows 25% ejection fraction and severe hypokinesis her vital signs were stable Patient was admitted to the hospital for CHF management and possible left lower lobe pneumonia # Acute on chronic systolic heart failure: -- Patient was initially diuresed with IV Lasix, she exhibited SVT on the equipment monitor phototypesetting this afternoon we decided to order further diuresis. Metoprolol dose is increased to 20 mg twice a day -- Give patient losartan instead of lisinopril continue home statin and aspirin , Plavix -- Telemonitoring, morphine when necessary, oxygen when necessary -- Daily weights, and accurate ins and outs -- Echocardiogram in August 2016 showed 25 % Ef -- Consult palliative care in the a.m. for goals of care discussion, involved discharge planners for long term placement versus home palliative care -- We will start patient on Lasix 40 mg daily by mouth # Possible left lower lobe pneumonia -- Rocephin started today will continue -- Serial chest x-rays will be needed. # Urinary tract infection with gram-negative rods -- Rocephin has been started -- Check urine culture results # Cough. -- Likely due to CHF -- Tessalon Perles for symptomatic relief -- Lisinopril changed to losartan Chronic problems: # History of CAD: Continue Aspirin, metoprolol, losartan # History of SVT: Continue metoprolol I discussed case with patient's at bedside at length and he agrees with the above plan. CODE STATUS: DNR/DNI Alternate decision-maker: Disposition: security services manager will likely need to work on transfer to custodial facility once the above problems have been stabilized. Pain Evaluation: Adequate Pain Control GI Prophylaxis: H2 derek VTE Prophylaxis: Sub-Q Enoxaparin Resuscitation Status: DNR/DNI:Do Not Resuscitate/Intubate Nate Gonzales MD Oct 29, 2016 00:10
[2016-10-29] MEDS: Sodium Chloride LOK Flush 10 mL Syringe IVFLUSH SCH ×3 (00:30→16:01)
[2016-10-29] MEDS: Heparin 5,000 Unit/mL Inj SUBQ SCH ×3 (01:18→16:00)
--- NOTE | 2016-10-29 01:52 | NUR ---
GI Pt has been incontinent x2 for large brn smears. Lauren care completed which includes barrier creme Care ongoing
--- NOTE | 2016-10-29 06:05 | NUR ---
Tele Pt has short bursts of PSVT lasting 5 seconds. Pt deinies chest pain. BP 130/80. Overall heart rate in the 80s-90s. Very irregular. Will cont to monitor Addendum: 10/29/16 at 0609 by KARENA RANDLE RN SVT not PSVT (very short bursts)
[2016-10-29 06:22] LABS: BASOPHILS % (AUTO) 0.2 % (0-3); EOSINOPHILS % (AUTO) 0.6 % (0-5); Mean Corpuscular Hemoglobin 32.4 pg (27.0-35.0); Mean Corpuscular Volume 99.5 fL (81-100); NEUTROPHILS % (AUTO) 78.4 % (40-74); Platelet Count 171 bil/L (150-400)
[2016-10-29 07:41] LABS: Magnesium 2.2 mg/dL (1.6-2.6)
[2016-10-29] MEDS: MeTOProlol XL 25 mg ER24 Tablet PO SCH (08:27)
[2016-10-29] MEDS: Isosorbide Mononitrate 30 mg ER24 Tablet PO SCH (08:27)
[2016-10-29] MEDS: cefTRIAXone 2,000 mg/D5W 50 mL IV Minibag Plus IV SCH ×2 (08:28)
--- NOTE | 2016-10-29 11:14 | NUR ---
Gave access to [facility] and FINGER [employer]ER notified [facility] liaison patient is currently here.
--- NOTE | 2016-10-29 11:56 | NUR ---
MARIBEL: Patient has dementia at base and is decision maker. not in room this morning, CUSTOMS COMPLIANCE SPECIALIST will follow up.
--- NOTE | 2016-10-29 12:36 | NUR ---
Mentation Patient is alert to self only and history of Dementia. Denies pain or discomfort. Currently on IV ABO and no adverse effects of IV ABO noted. Stable vitals signs and oxygenation. Patient received all PO medications crushed in apple sauce with out difficulty swallowing. Elevated BNP and orders for lasix. New orders for chest Xray. Verbal orders received for OT evaluation due to difficulty feeding herself and right hand shakiness. Patient is one to one feed. Turning and repositioning every 2 hours to prevent skin breakdown. Continue to monitor pain, I&O, vital signs, respiratory sign and symptoms, and safety. per Tele SR 82.
--- NOTE | 2016-10-29 12:54 | NUR ---
Social Work-initial assessment: Data:See initial assessment. Pt is an 86 y/o female who was admitted on 10/27/16 for CHF and pleural effusion, weakness per H&P. Pt's insurance is [employer] and PCP is Manny Montana MD. EMR Reviewed. Pt's readmission score is 5-high risk. SW met with pt, Royce to discuss discharge planning, SW role explained. Pt was unable to communicate with SW. Pt's states that pt resides at home with 2 steps to enter. Pt's is 24/7 caregiver. Pt has a walker and does not drive. Pt is open with [facility] and they have been given access. Pt has no history. Pt has completed DPOA/ advanced directive and agreed to provide the hospital with a copy. Pt has no [facility] care or VA benefits. Pt's stated he would like the pt to go [facility] if possible and wanted to know if this would be covered by pt's insurance. SW explained that no recommendations have been made yet for SNF and [facility] is not actually considered a SNF so the cost would be out of pocket. SW agreed to contact if a SNF is the recommendation. ST and PT valuations are pending. SW provided phone number and plan on white board in room. SW will continue to follow. Assessment:Pt who resides at home with who is 24/7 caregiver and is open with [facility]. Plan:Pt to discharge home via [facility], r/o SNF. SW will continue to follow for needs. ELAINE Elaine Addendum: 10/29/16 at 1303 by ALEXIS BRUCE Amended: Links added.
--- NOTE | 2016-10-29 17:23 | NUR ---
Telemetry Per Tele SVT 140-150 at 1717 briefly for one minutes. per assessment patient denies any chest pain or chest discomfort. No sign and symptoms of any cardiac distress noted. follow up with Tele SR 89 at 1725. Patient has history of SVT. Currently on Metoprolol 25 mg BID as ordered. per Tele patient has been sustaining [address] Gonzales and new orders received to give already scheduled 2030 dose of Metoprolol at 1800. Will follow orders.
[2016-10-29] MEDS ORDERED: MeTOProlol XL 25 mg ER24 Tablet PO ONE (18:00)
--- NOTE | 2016-10-29 18:52 | NUR ---
follow up after Metoprolol BP 113/60, pulse 98. patient is asymptomatic. per Tele SVT sustaining 150's to 105 to 129. Paged doctor and notified r/t Tele notes. No new orders received and states," will follow up with Tele."
[2016-10-29] MEDS ORDERED: Furosemide 10 mg/mL 2 mL Inj IVPUSH ONE (19:00)
--- NOTE | 2016-10-29 20:55 | NUR ---
Troponin of 0.037 P: Troponin level critical after pt in SVT. I: Pt was given 20 mg of IV Lasix. Dr. Juarez updated on critical value and current telemetry. Order obtained to draw another troponin in 6 hours. E: SR 80s to 90s. Pt denies any chest pain. Will cont. to monitor. Next troponin level scheduled for 129.
--- NOTE | 2016-10-29 22:47 | NUR ---
Fluctuating HR P: HR 80s to 150s/ST (noted p waves). I: Dr. Juarez notified of pt's rhythm and frequently fluctuating HR. Pt received Toprol XL just before 1800. No new further orders, but to continue to monitor. E: Pt stable. Will cont. to monitor. Addendum: 10/30/16 at 0530 by JOSE APODACA RN Addendum: Pt's HR continues to jump to the 150s unsustained and returns to a NSR; pt asymptomatic.
--- NOTE | 2016-10-29 22:55 | PCM.PNMED ---
Subjective Date of Service Oct 29, 2016 Subjective The patient appears brighter and more responsive today. She has no new complaints. She appears quite comfortable. Exam Vital Signs Vital Sign - Last Date Time Temp Pulse Resp B/P Pulse Ox O2 Delivery O2 Flow Rate FiO2 10/29/16 20:54 36.7 67 18 110/69 92 Room Air Intake and Output 10/28/16 10/28/16 10/29/16 Cumulative From/Thru 15:00 23:00 07:00 10/27/16 15:44 - 10/29/16 05:13 Intake Total 450 ml 100 ml 900 ml Output Total 300 ml Balance 450 ml 100 ml 600 ml Intake Oral 450 ml 100 ml 900 ml Output Urine Total 300 ml # Voids 4 2 9 # Bowel Movements 0 0 0 Exam General: Patient is in no apparent distress and she appears more lucid and responsive today. HEENT: Head is atraumatic and normocephalic. Eyes: Pupils are equally round and reactive to light and accommodation. Extraocular muscles are intact. Sclera are white, anicteric. Subconjunctival mucosa is pink. Ears and nose are unremarkable. Oropharynx: There is no mucosal lesions, there is no thrush, there is no pharyngitis. Neck: Is supple, there are no nodes, or masses or tenderness. Chest: Is clear to auscultation and percussion. There are no rales, rhonchi, wheezes or rubs. Heart: Rate, rhythm is regular. There is no murmur, rub or gallop. Abdomen: Good bowel sounds are present. Abdomen is soft, nontender, no organomegaly or masses were appreciated. Extremities: Are symmetrical and well perfused. There is minimal edema, there is no cellulitis, no rash. Neurologic: The patient appears pleasantly demented. There is generalized weakness more pronounced on the left side. Psychiatric: Patients mood is calm and shows no sign of agitation. He appears more lucid and responsive today. Genital: Deferred Rectal: Deferred Lab and Diagnostics Result Diagram: 10/29/16 0532 10/29/16 0532 Microbiology Name: MIKI SAENZ I Age/Sex: 86/F Attend Dr: Halley Garrison DO Acct: [id number] Unit: [id number] Status: ADM IN Location: [facility] [place] 3020-1 Re10/27/16 Disch: Specimen: [id number] Collected: 10/27/16 Status: RES Req#: [id number] Received: 10/27/16 Source: URINE CC Sp Desc : Subm Dr: Kimani Magaña MD Ordered: URINE CULT Procedure Result Verified Site Microbiology ERICKA CULT URINE Preliminary 10/28/16 PRELIMINARY ID GRAM NEG CAREY, PROBABLE E COLI SUSCEPTIBILITIES TO FOLLOW COLONY COUNT/QUANTITY >100,000 CFU/ml X-Rays, CTs and MRIs [facility] Diagnostic Imaging [place] [address] Patient Name: MIKI SAENZ I MR#: [id number] [place] [facility] [place] Ordering Phys: Kimani Magaña MD Date of Service: 10/27/16 0708 PROCEDURE: X-RAY CHEST ONE VIEW, PORTABLE ([id number]) INDICATIONS: cough, sob TECHNIQUE: One view of the chest was acquired. COMPARISON: None. FINDINGS: Surgical changes and devices: None. Lungs and pleura: No pneumothorax. Dense left basilar consolidation. Cannot exclude small left pleural effusion. Mediastinum: Mediastinal contours appear normal. Heart size is normal. Bones and chest wall: No suspicious bony lesions. Overlying soft tissues appear unremarkable. IMPRESSION: Dense left basilar pneumonia. Recommend radiographic followup to document resolution and exclude underlying pulmonary nodule Dictated by: Hosea Sheridan M.D. on 10/27/2016 at 8:05 Approved by: Hosea Sheridan M.D. on 10/27/2016 at 8:06 PROCEDURE: US VEINOUS LEG DUPLEX UNILATERAL, LEFT INDICATIONS: swelling LLE ro DVT TECHNIQUE: Real-time imaging, as well as color and pulse Doppler interrogation, were performed of the lower extremity deep veins from the inguinal ligament to the popliteal fossa. COMPARISON: None. FINDINGS: The deep veins are normally compressible, and free of intraluminal thrombus. Color and pulse Doppler demonstrate normal phasic intraluminal flow. There is normal augmentation response to distal compression maneuver. IMPRESSION: No evidence of deep venous thrombosis. Dictated by: Hosea Sheridan M.D. on 10/27/2016 at 13:55 Approved by: Hosea Sheridan M.D. on 10/27/2016 at 13:56 Assessment & Plan This is a 86-year-old female with past medical history of dementia, CAD, status post [place], SVT, hypertension, angioplasty and Coronary stents, who presented to the [facility] emergency room as her found it difficult to wake her up and transfer her out of the bed. Patient appeared to be aware of her 's name, mumbling a lot but otherwise fairly nonverbal. Patient was discharged from the hospital recently on lisinopril, Plavix, aspirin , metoprolol but apparently at the time of admission to ED she is only on metoprolol. Apparently her primary care doctor Dr. Montana discontinued all of her medications except for metoprolol 2 weeks prior to admission Her cough was worse, edema was worse and now she could not get up from bed. In the ER chest x-ray showed left pleural effusion and findings consistent with possible left lower lobe pneumonia, white count is normal BNP is elevated at 22, 000 and troponin within normal EKG shows no changes from before. Prior echo performed on August 2016 shows 25% ejection fraction and severe hypokinesis her vital signs were stable Patient was admitted to the hospital for CHF management and possible left lower lobe pneumonia # Acute on chronic systolic heart failure, present at the time of admission. Active and still problematic -- Patient was initially diuresed with IV Lasix, she exhibited SVT on the publishing specialist this afternoon we decided to order further diuresis. Metoprolol dose is increased to 25 mg twice a day. We will consider increasing metoprolol further. -- Give patient losartan instead of lisinopril continue home statin and aspirin , Plavix -- Telemonitoring, morphine when necessary, oxygen when necessary -- Daily weights, and accurate ins and outs -- Echocardiogram in August 2016 showed 25 % EF -- Consult palliative care in the a.m. for goals of care discussion, involved discharge planners for longterm placement versus home palliative care -- We will start patient on Lasix 40 mg daily by mouth # Possible left lower lobe pneumonia -- Rocephin started today will continue -- Serial chest x-rays will be needed. -- X-ray of the chest ordered for 10/30/2016 # Urinary tract infection with gram-negative rods -- Rocephin has been started -- Check urine culture results # Cough. -- Likely due to CHF -- Tessalon Perles for symptomatic relief -- Lisinopril changed to losartan Chronic problems: # History of CAD: Continue Aspirin, metoprolol, losartan # History of SVT: Continue metoprolol I discussed case with patient's at bedside at length and he agrees with the above plan. CODE STATUS: DNR/DNI Alternate decision-maker: Disposition: rn support services will likely need to work on transfer to nursing home facility once the above problems have been stabilized. Pain Evaluation: Adequate Pain Control GI Prophylaxis: H2 derek VTE Prophylaxis: Sub-Q Enoxaparin VTE Mechanical Devices: Intermittant Pneumatic CD Resuscitation Status: DNR/DNI:Do Not Resuscitate/Intubate Nate Gonzales MD Oct 29, 2016 22:55
[2016-10-30] VITALS (12 sets, daily range): BP systolic 86–121; BP diastolic 51–75; PULSE 66–114; RESP 20–24; O2SAT 88–96
[2016-10-30] MEDS: Heparin 5,000 Unit/mL Inj SUBQ SCH ×3 (00:28→17:09)
[2016-10-30] MEDS: Sodium Chloride LOK Flush 10 mL Syringe IVFLUSH SCH ×3 (00:28→17:08)
[2016-10-30 02:07] LABS: Magnesium 2.1 mg/dL (1.6-2.6)
[2016-10-30 06:36] LABS: BASOPHILS % (AUTO) 0.3 % (0-3); EOSINOPHILS % (AUTO) 0.9 % (0-5); MONOCYTES % (AUTO) 12.6 % (4-12); Mean Corpuscular Hemoglobin 32.3 pg (27.0-35.0); Platelet Count 182 bil/L (150-400)
[2016-10-30 07:54] LABS: TROPONIN T 0.038 ug/L (0.0-0.011)
[2016-10-30] MEDS ORDERED: MeTOProlol XL 25 mg ER24 Tablet PO SCH (08:30)
[2016-10-30] MEDS ORDERED: MeTOProlol XL 25 mg ER24 Tablet PO ONE ×2 (08:55→09:14)
--- NOTE | 2016-10-30 08:59 | DRSVH ---
PROCEDURE: X-RAY CHEST ONE VIEW, PORTABLE ([id number]) INDICATIONS: Follow up for LLL infiltrate effusion TECHNIQUE: One view of the chest was acquired. COMPARISON: [facility], CR, XR CHEST 1VW (PORTABLE), 10/27/2016, 7:07. FINDINGS: Surgical changes and devices: None. Lungs and pleura: Interval increase in the left lung and basilar consolidation and persistent left pl eural effusion. Right lung is hyperinflated and clear. Interstitium is prominent. Mediastinum: Mediastinal contours appear normal. Heart size is enlarged. Bones and chest wall: No suspicious bony lesions. Overlying soft tissues appear unremarkable. IMPRESSION: Increasing mid left lung and basilar consolidation and persistent left pleural effusion. Findings likely related to worsening pneumonia and/or atelectasis. Continued radiographic surveillan ce to resolution is recommended. Dictated by: Leroy BRANDON Interpreted: Elizabeth Joseph MD on 10/30/2016 at 8:58 Transcribed by: ALESHA on 10/30/2016 at 8:59 Approved by: Elizabeth Joseph M.D. on 10/30/2016 at 22:15
[2016-10-30] MEDS ORDERED: MeTOProlol XL 50 mg ER24 Tablet PO ONE (09:15)
[2016-10-30] MEDS: cefTRIAXone 2,000 mg/D5W 50 mL IV Minibag Plus IV SCH ×2 (09:24)
[2016-10-30] MEDS: Isosorbide Mononitrate 30 mg ER24 Tablet PO SCH (09:26)
--- NOTE | 2016-10-30 14:27 | NUR ---
Gave access and faxed facesheet to [facility] and [facility] per REPORTING LEAD. This most likely will be private pay with Hospice.
--- NOTE | 2016-10-30 15:08 | NUR ---
Social Work: Continued d/c planning Data: Pt is on day 3 of hospitalization. EMR reviewed, pt discussed in rounds. EGG WORKER met with pt and spouse at bedside. Pt's spouse states that he is interested in [facility], but does not want to pay privately. Options explained by EGG WORKER. Pt's spouse wants EGG WORKER to refer pt to SNF, SNF choice list provided, [facility] Jhon Boateng and [facility] Jackeline Caceres referred by UR specialist. EGG WORKER explained this would likely be private pay, as their insurance will likely not cover. Pt's spouse requested hospice review pt to see if pt meets hospice criteria. [facility] WORKER [facility] and [facility] are evaluating pt. EGG WORKER called [facility] regarding their costs: Respite for 10-30 days is $130 per day, commutator undercutter resident choices range from $3215-$4820 per month. EGG WORKER will speak with pt's spouse again on 10/31 regarding options. EGG WORKER will continue to follow. Assessment: Pt with assistance at baseline. Plan: Pt will likely d/c to either [facility] or SNF, possibly with hospice. EGG WORKER to follow up with pt and spouse regarding options after hearing back from Hospice and from SNF. ELAINE Packer
--- NOTE | 2016-10-30 15:46 | NUR ---
tele Tele sinus 70-80's with pvc's, hr up to 140-150's unsustained, increasing in frequency this afternoon; pt. asymptomatic. Dr. Calvillo and Dr. Gonzales aware; pt. given metoprolol extended release 50 mg this am per md orders. at bedside assisting with care.
--- NOTE | 2016-10-30 18:39 | DRSVH ---
PROCEDURE: CT CHEST WITH CONTRAST ([id number]) INDICATIONS: Further Evaluate Progressive Infiltrate/Effusion L TECHNIQUE: After the administration of intravenous contrast, 5 mm thick sections acquired from the pulmonary api dayo to the posterior costophrenic angles. 7 mm thick coronal and sagittal MIP reformats were acquire d. For radiation dose reduction, the following was used: automated exposure control, adjustment of mA and/or kV according to patient size. COMPARISON: [facility], CR, XR CHEST 1VW (PORTABLE), 10/30/2016, 5:24. FINDINGS: Image quality: Excellent. Lungs and pleura: There is an overall appearance of increased pulmonary vascularity. There is a mild to moderate left pleural effusion with superimposed area of consolidation. Minimal air bronchograms a re noted. There is a 12 mm nodular opacity within the left upper lobe. Mediastinum: Heart size is mildly enlarged. No pericardial effusion. No mediastinal or hilar adenop athy by size criteria. Thoracic aorta and central pulmonary arteries are normal in size. There are s everal areas of questionable filling defect within the first and second order branches of the right p ulmonary artery extending into the upper and lower lobes. Esophagus is normal in caliber. No hiatal hernia. Bones and chest wall: No suspicious bony lesions. No vertebral body compression fractures. No axil navid or supraclavicular adenopathy by size criteria. Thyroid gland is unremarkable. Abdomen: Visualized upper abdominal solid organs appear normal. Upper abdominal bowel loops are nor mal in caliber. IMPRESSION: 1. Mild to moderate left pleural effusion with superimposed consolidation, without significant interv al change compared to prior exam. Consolidated appearance has an atelectatic appearance. However, sma ll underlying areas of pneumonia or potentially underlying mass lesion cannot be excluded. 2. Small areas of potential filling defect identified within the second order branches of the right p ulmonary artery as described above. Pulmonary embolism cannot be excluded. However, it is noted that this is not protocoled for evaluation of pulmonary arterial vasculature in terms of injection timing or projections. Clinical correlation is recommended in a CT PE chest protocol may be obtained as clin ically appropriate. 3. 12 mm left upper lobe nodular opacity. This is overall nonspecific. This could be represent a foca l fluid. However, other etiologies cannot be excluded and interval followup is recommended as below. The above findings were discussed with Dr. Nate Gonzales on 10/30/16 at 6:30 PM. Fleischner Society criteria for SOLID lung nodule followup. Nodule size (mm)Low-risk patientHigh-risk patient<6 (single or multiple)No routine followup.Optional CT at 12 months. 6-8 (single or multiple)CT at 6-12 months, then optional CT at 18-24 mo.CT at 6-12 m onths, then CT at 18-24 months. >8 (single)CT, PET-CT, or biopsy at 3 months. Same as for low-risk p ts. >8 (multiple)CT at 3-6 months, then optional CT at 18-24 mo.CT at 3-6 months, then CT at 18-24 m onths. Recommendations do not apply to lung cancer screening, patients with immunosuppression, or patients w ith known primary cancer. Dictated by: Elizabeth Joseph M.D. on 10/30/2016 at 18:27 Approved by: Elizabeth Joseph M.D. on 10/30/2016 at 18:38
[2016-10-30] MEDS: MeTOProlol XL 25 mg ER24 Tablet PO SCH (20:38)
--- NOTE | 2016-10-30 23:18 | CONS ---
[address] [address] CONSULTATION REPORT PATIENT: MIKI SAENZ I : 1930 MR#: [id number] ADMIT: 10/27/2016 JOB ID: [id number] DATE OF SERVICE: HISTORY OF PRESENT ILLNESS: The patient is a very pleasant 86-year-old patient with a history of ischemic cardiomyopathy, who was brought into the hospital yesterday with symptoms of progressive cough, weakness and obtundation. Paramedics were contacted to bring the patient to the hospital for evaluation. The patient had been seen by Dr. Montana as an outpatient a couple of weeks ago and felt that her symptoms of cough might be related to lisinopril which was recently started, and all of her medications, except the metoprolol, were discontinued about two weeks ago. Her outpatient medications included aspirin 81 mg a day, clopidogrel 75 mg daily, metoprolol tartrate mg b.i.d., vitamins, in addition to losartan 25 mg a day, which apparently was recently started instead of the lisinopril. She had also been taking isosorbide mononitrate and sublingual nitroglycerin as needed. This patient initially presented in April of last year with an acute inferior ST-elevation myocardial infarction. Urgent coronary angiography was performed demonstrating a totally occluded mid right coronary artery which was dilated and stented. She also had extensive severe diffuse obstructive coronary disease involving her LAD and left circumflex vessel. She also has a history of gradually progressive familial dementia, presumably frontal lobe dementia, with gradual declining course. She was treated medically because of her dementia and because of the fact that the disease in her LAD and circumflex was quite diffuse, and presented again in August with a ground level fall and symptoms of head discomfort without loss of consciousness. The patient had no specific cardiac complaints at that time, however, EKG showed some diffuse ECG abnormalities and increasing troponin levels. Her evaluation at that time included a cardiology consultation, and on review of her prior coronary angiograms it was felt like no further coronary intervention was indicated, and again, it was recommended she be treated medically. She was discharged home on September 13 with a normal chest x-ray, on a combination of aspirin 81 mg daily, atorvastatin 40 mg daily, clopidogrel 75 mg daily, isosorbide mononitrate 30 mg a day, lisinopril 5 mg daily, metoprolol tartrate mg b.i.d., to follow up with Dr. Montana. According to the family, the patient has had a couple of episodes of anginal chest discomfort while walking that seemed to respond to sublingual nitroglycerin without any difficulty. She has had gradually progressive weakness and has been bothered by a persistent hacking nonproductive cough since around August. No fevers, chills or productive sputum. The mentions somewhat off hand about occasional choking. He feeds her, but as far as I can tell she has not had a previous swallow evaluation. She is unable to provide any kind of history, although she is certainly pleasant and cooperative during the exam. She has not been bothered by obvious significant nocturnal pulmonary congestion, though she tends to sleep propped up some at night and she has been gradually losing her ability to ambulate and it has been more and more difficult for the to get her up from bed to the bathroom and back and so forth. She has been compliant with her medications as far as I can tell. REVIEW OF SYSTEMS: As obtained from the and family is otherwise notable for the absence of any bleeding issues. She is not eating well, does not seem to have much of an appetite and probably has lost weight. Review of her hospital weight records suggest that she is actually 1 kg or 2 heavier than she was back in April, so she has not lost weight from anorexia or poor eating. She has not had much in the way of lower extremity edema and I do not get the feeling that she has had problems with palpitations as well. PHYSICAL EXAMINATION: Shows a pleasant 84-year-old female who appears comfortable sitting at about 60 degrees propped up some. She has an intermittent hacky dry cough but does not appear dyspneic. She has some facial muscle wasting. Her jugular venous pressure is moderately elevated with jugular venous pulsations noted with the patient at 60 degrees in the mid neck. Lung breaux demonstrate evidence of dense consolidation at the left lung base. The right lung is clear. I do not hear any wheezing or rales. Cardiac examination is notable for an occasionally irregular rhythm with frequent ectopy and a soft left ventricular gallop with no significant cardiac murmurs. Abdomen is soft and nontender. Bowel tones are normal. Distal extremities appear warm and well perfused. Distal pulses are faintly palpable. I do not see any acrocyanosis. Skin color is good. She is pleasant and cooperative, but confused and disoriented. LABORATORY DATA: Notable for hemoglobin of 11.5, her white count is not elevated at 7.5. Platelet count is normal. Chemistries demonstrate a persistently abnormal troponin, but considerably less than her presentation in August. Troponins are increased from isolated negative troponin on the when she was admitted. BNP is markedly elevated at 25,000 to 30,000. BUN and creatinine normal with potassium of 3.8. Procalcitonin is normal at 0.07. Urine culture and notable for E. coli. Negative blood cultures. Chest x-ray, as indicated, shows very prominent consolidation throughout the whole left lower lung field with evidence of increasing pleural effusion. EKG continues to show nonspecific T-wave inversions in the inferolateral leads and persistent ST-segment depression. IMPRESSION: The patient has evidence of severe obstructive coronary artery disease with evidence of progressive ischemic cardiomyopathy in the absence of symptoms likely related to the patient's progressively severe dementia. Telemetry demonstrates recurrent episodes of brief supraventricular tachycardia or paroxysmal atrial tachycardia today. Her left lower lobe infiltrate I guess would be unlikely pneumonia given the fact that her white count is normal, her procalcitonin is normal, and she has not had a fever, but she clearly has a dense infiltrate, and my suspicion based on her history is that she may have aspiration and obstruction with atelectasis. Lung breaux otherwise appear relatively clear and despite her markedly abnormal BNP she does not appear particularly volume overloaded to me. Her blood pressure is slightly lower today so I would be reluctant to recommend increasing nitrates or diuretics, and her losartan could be held if her blood pressure falls much further. Her metoprolol dose I would like to keep at mg twice daily which might help her recurrent episodes of PAT, and it may be that if her SVT is a persistent difficult problem I would consider probably amiodarone as an antiarrhythmic, but at this point will hold off on that unless we know the SVT is an obvious significant problem. At this point, I would continue with her current cardiac medications including metoprolol succinate mg b.i.d., losartan 25 mg a day, aspirin and Plavix. Imdur 30 mg daily and furosemide 40-[address] needed[address] A [address] scan may be beneficial in determining the nature of her left lower lobe infiltrate and I would recommend certainly a swallow evaluation, which I expect would be abnormal, to give the family some instructions regarding her diet and feeding instructions as well. I think it is likely that this patient will eventually require full-time nursing assistance, and social service discharge planning obviously are already involved. I appreciate the opportunity of seeing the patient and I will follow up with her care tomorrow.
--- NOTE | 2016-10-30 23:58 | PCM.PNMED ---
Subjective Date of Service Oct 30, 2016 Subjective Patient remains pleasantly confused. She does not know the date she does not know where she is does not know the season she is only oriented to person and does recognize her family members. Exam Vital Signs Vital Sign - Last Date Time Temp Pulse Resp B/P Pulse Ox O2 Delivery O2 Flow Rate FiO2 10/30/16 21:59 Supplement Oxygen 10/30/16 20:24 36.9 66 20 113/70 96 2.00 Intake and Output 10/29/16 10/29/16 10/30/16 Cumulative From/Thru 14:59 22:59 06:59 10/27/16 15:44 - 10/30/16 06:52 Intake Total 70 ml 318 ml 0 ml 1288 ml Output Total 300 ml Balance 70 ml 318 ml 0 ml 988 ml Intake Oral 318 ml 0 ml 1218 ml IV Total 70 ml 70 ml Output Urine Total 300 ml # Voids 3 2 14 # Bowel Movements 2 1 3 Exam General: Patient is in no apparent distress and she appears more lucid and responsive today. HEENT: Head is atraumatic and normocephalic. Eyes: Pupils are equally round and reactive to light and accommodation. Extraocular muscles are intact. Sclera are white, anicteric. Subconjunctival mucosa is pink. Ears and nose are unremarkable. Oropharynx: There is no mucosal lesions, there is no thrush, there is no pharyngitis. Neck: Is supple, there are no nodes, or masses or tenderness. Chest: Is significant for decreased breath sounds at the left base. Otherwise, the lungs were clear. There are no rales, rhonchi, wheezes or rubs. Heart: Rate, rhythm is regular. There is no murmur, rub or gallop. Abdomen: Good bowel sounds are present. Abdomen is soft, nontender, no organomegaly or masses were appreciated. Extremities: Are symmetrical and well perfused. There is minimal edema, there is no cellulitis, no rash. Neurologic: The patient appears pleasantly demented. There is generalized weakness more pronounced on the left side. Psychiatric: Patients mood is calm and shows no sign of agitation. She remains pleasantly confused and oriented only to person. She is able to recognize family members. Genital: Deferred Rectal: Deferred Lab and Diagnostics Result Diagram: 10/30/1659910/30/16599 Microbiology Specimen: [id number] Collected: 10/27/16 Status: COMP Req#: [id number] Received: 10/27/16 Source: URINE CC Sp Desc : Subm Dr: Kimani Magaña MD Ordered: URINE CULT Procedure Result Verified Site Microbiology ERICKA CULT URINE Final 10/29/16 Organism 1 ESCHERICHIA COLI U COLONY COUNT/QUANTITY >100,000 CFU/ml Cefazolin-predicts results for the oral agents, cefaclor,cefdinir, cefpodoximen, cefprozil, cefuroximne axetil, cephalexin and loracarbed when used for therapy of uncomplicated UTI's due to E. coli, K. pneumoniae, and Proteus mirabilis. Cefpodoxime, cefdinir and cefuroxime axetil may be tested individually because some isolates may be susceptible to these agents while testing resistant to cefazolin. (CLSI N195-D99 pg 53) 1. ESCHERICHIA COLI M.I.C Interp --------- ------ * AMOXICILLIN/CLAVULATE <=2 S * AMPICILLIN <=2 S * CEFAZOLIN (CEPHALOSPORIN) UTI 4 S * CEFEPIME <=1 S * CEFTRIAXONE <=1 S * CEFUROXIME SODIUM 16 I * CIPROFLOXACIN <=0.25 S * ERTAPENEM <=0.5 S * GENTAMICIN <=1 S * IMIPENEM <=1 S * LEVOFLOXACIN <=0.12 S * NITROFURANTOIN <=16 S * TETRACYCLINE <=1 S * TOBRAMYCIN <=1 S * TRIMETHOPRIM/SULFAMETHOXAZOLE <=20 S X-Rays, CTs and MRIs [facility] Diagnostic Imaging Department [place], [place] [id number] Patient Name: MIKI SAENZ I MR#: [id number] [place] [facility] Phys: Kimani Magaña MD Date of Service: 10/27/16 0708 PROCEDURE: X-RAY CHEST ONE VIEW, PORTABLE ([id number]) INDICATIONS: cough, sob TECHNIQUE: One view of the chest was acquired. COMPARISON: None. FINDINGS: Surgical changes and devices: None. Lungs and pleura: No pneumothorax. Dense left basilar consolidation. Cannot exclude small left pleural effusion. Mediastinum: Mediastinal contours appear normal. Heart size is normal. Bones and chest wall: No suspicious bony lesions. Overlying soft tissues appear unremarkable. IMPRESSION: Dense left basilar pneumonia. Recommend radiographic followup to document resolution and exclude underlying pulmonary nodule Dictated by: Hosea Sheridan M.D. on 10/27/2016 at 8:05 Approved by: Hosea Sheridan M.D. on 10/27/2016 at 8:06 PROCEDURE: US VEINOUS LEG DUPLEX UNILATERAL, LEFT INDICATIONS: swelling LLE ro DVT TECHNIQUE: Real-time imaging, as well as color and pulse Doppler interrogation, were performed of the lower extremity deep veins from the inguinal ligament to the popliteal fossa. COMPARISON: None. FINDINGS: The deep veins are normally compressible, and free of intraluminal thrombus. Color and pulse Doppler demonstrate normal phasic intraluminal flow. There is normal augmentation response to distal compression maneuver. IMPRESSION: No evidence of deep venous thrombosis. Dictated by: Hosea Sheridan M.D. on 10/27/2016 at 13:55 Approved by: Hosea Sheridan M.D. on 10/27/2016 at 13:56 Cardiac Echo Impressions Echocardiogram Report Name: MIKI SAENZ Siva e: 09/08/2016 Height: 66 in Hospital Exam Location: [facility] Weight: 13 3 lb Gender: Female BSA: 1.7 m2 : 1930 Age: 85 yrs BP: 116/62 mmHg Reason For Study: CAD Ordering Physician: HOSPITALIST [facility] Performed By: Oma Farris Referring Physician: Dr. Manny Montana Interpretation Summary Left ventricular systolic function is moderate to severely reduced. Left ventricular ejection fraction is estimated to be 25%. Compared to the prior exam, left ventricular function is significantly decreased. There is a large sized apical, septal, anteroseptal, inferior, and posterior wall motion abnormality with hypokinesis to akinesis of the segments. There are new LV wall motion abnormalities. Assessment of diastolic parameters suggests a pseudonormalization pattern, consistent with elevated filling pressures. The right ventricle grossly appears normal in size with probable normal systolic function. The left atrium is mildly dilated. Right atrial size is normal. There is mild to moderate mitral regurgitation. Compared to the prior echo study, there has been an increase in the severity of mitral regurgitation. There is no other significant valvular heart disease. The aortic root is normal size. Assessment & Plan This is a 86-year-old female with past medical history of dementia, CAD, status post ID, SVT, hypertension, angioplasty and Coronary stents, who presented to the [facility] emergency room as her found it difficult to wake her up and transfer her out of the bed. Patient appeared to be aware of her 's name, mumbling a lot but otherwise fairly nonverbal. Patient was discharged from the hospital recently on lisinopril, Plavix, aspirin , metoprolol but apparently at the time of admission to ED she is only on metoprolol. Apparently her primary care doctor Dr. Montana discontinued all of her medications except for metoprolol 2 weeks prior to admission Her cough was worse, edema was worse and now she could not get up from bed. In the ER chest x-ray showed left pleural effusion and findings consistent with possible left lower lobe pneumonia, white count is normal BNP is elevated at 22, 000 and troponin within normal EKG shows no changes from before. Prior echo performed on August 2016 shows 25% ejection fraction and severe hypokinesis her vital signs were stable Patient was admitted to the hospital for CHF management and possible left lower lobe pneumonia # Acute on chronic systolic heart failure, present at the time of admission. Active and still problematic -- Patient was initially diuresed with IV Lasix, she exhibited SVT on the surg physician asst this afternoon we decided to order further diuresis. Metoprolol dose is increased to 25 mg twice a day. We will increase to 50 mg by mouth twice a day -- Give patient losartan instead of lisinopril continue home statin and aspirin , Plavix -- Telemonitoring, morphine when necessary, oxygen when necessary -- Daily weights, and accurate ins and outs -- Echocardiogram in August 2016 showed 25 % EF -- We will start patient on Lasix 40 mg daily by mouth - Consulted Dr. Jesus Alberto Calvillo of cardiology and appreciate his input and recommendations. # Possible left lower lobe pneumonia -- Rocephin started today will continue -- Serial chest x-rays will be needed. -- X-ray of the chest ordered for 10/30/2016 looks worse -- We will check CT scan of the chest # Urinary tract infection with Escherichia coli sensitive to ceftriaxone -- Rocephin has been started and we will continue # Cough. -- Likely due to CHF -- Tessalon Perles for symptomatic relief -- We have also changed Lisinopril to losartan Chronic problems: # History of CAD: Continue Aspirin, metoprolol, losartan # History of SVT: Continue metoprolol I discussed case with patient's at bedside at length and he agrees with the above plan. CODE STATUS: DNR/DNI Alternate decision-maker: Disposition: professional services specialist will likely need to work on transfer to assisted facility once the above problems have been stabilized. Pain Evaluation: Adequate Pain Control GI Prophylaxis: H2 derek VTE Prophylaxis: Sub-Q Enoxaparin VTE Mechanical Devices: Intermittant Pneumatic CD Resuscitation Status: DNR/DNI:Do Not Resuscitate/Intubate Nate Gonzales MD Oct 30, 2016 23:58 Nate Gonzales MD Oct 30, 2016 23:58
[2016-10-31] VITALS (8 sets, daily range): BP systolic 99–146; BP diastolic 62–77; PULSE 52–69; RESP 16–20; O2SAT 94–97
[2016-10-31] MEDS: Sodium Chloride LOK Flush 10 mL Syringe IVFLUSH SCH ×3 (00:34→17:03)
[2016-10-31] MEDS: Heparin 5,000 Unit/mL Inj SUBQ SCH ×3 (00:47→17:04)
[2016-10-31 06:03] LABS: BASOPHILS % (AUTO) 0.1 % (0-3); EOSINOPHILS % (AUTO) 2.9 % (0-5); MONOCYTES % (AUTO) 12.5 % (4-12); Mean Corpuscular Hemoglobin 32.7 pg (27.0-35.0); Mean Corpuscular Volume 100.6 fL (81-100); NEUTROPHILS % (AUTO) 74.1 % (40-74); Platelet Count 193 bil/L (150-400)
[2016-10-31 06:53] LABS: Magnesium 2.4 mg/dL (1.6-2.6)
--- NOTE | 2016-10-31 09:04 | NUR ---
[facility] can accept patient when ready. Addendum: 10/31/16 at 0911 by RUBI COSTA CM [facility] can accept patient when ready.
[2016-10-31] MEDS: MeTOProlol XL 25 mg ER24 Tablet PO SCH ×2 (09:10→21:48)
[2016-10-31] MEDS: cefTRIAXone 2,000 mg/D5W 50 mL IV Minibag Plus IV SCH ×2 (09:12)
--- NOTE | 2016-10-31 09:14 | NUR ---
MARIBEL: Patient has severe dementia at base and is caregiver/ decision maker. [employer] is following up with today regarding discharge planning and she will have him sign the MARIBEL as well.
[2016-10-31] MEDS: Potassium Chloride 20 mEq SR Tablet PO SCH (10:21)
[2016-10-31] MEDS: Isosorbide Mononitrate 30 mg ER24 Tablet PO SCH (10:40)
--- NOTE | 2016-10-31 10:48 | NUR ---
Evaluation completed. Please go to "Notes" then click on "Assessments and Notes" (bottom left corner of screen). Then select appropriate discipline tab on top of screen.
--- NOTE | 2016-10-31 10:55 | NUR ---
MARIBEL signed Pt's spouse signed MARIBEL. ELAINE Packer
--- NOTE | 2016-10-31 14:06 | NUR ---
Urinary retention Due to low output pt was bladder scanned at approx 1315 showing approx 750 cc retained urine. With encouragement & repositioning pt finally had good urine output, bladder scan post void residual was 350cc. notified, who asked to continue to monitor and bladder scan later in shift to determine if pino catheter will be needed. Continuing to monitor for now.
--- NOTE | 2016-10-31 15:42 | NUR ---
Aspiration precaution Pt has difficulty swallowing whole medication with apple sauce. Had speech therapy evaluate the pt. Pt can tolerate small cut up pills with thickened liquids or crushed medication in applesauce.
--- NOTE | 2016-10-31 16:22 | NUR ---
Social Work: Continued d/c planning Data: Pt is on day 4 of hospitalization. EMR reviewed. PIANO MECHANIC heard back from hospice stating pt meets hospice criteria. PIANO MECHANIC met with pt's spouse who states he would like pt to go home if at all possible and is agreeable to a hospice info visit. PIANO MECHANIC called hospice of the and left a message requesting a hospice visit in the AM of 11/01/16 if possible. Plan: Pt will likely d/c home with spouse with hospice and possibly private pay caregiving. PIANO MECHANIC will continue to follow. ELAINE Packer
--- NOTE | 2016-10-31 17:12 | DRSVH ---
PROCEDURE: CT ANGIO CHEST PULMONARY EMBOLISM ([id number]) INDICATIONS: Possible PE as seen on previous CT TECHNIQUE: After the administration of intravenous contrast, 2 mm thick sections acquired from the pulmonary api dayo to the posterior costophrenic angles. 3-dimensional maximum intensity projection (MIP) coronal a nd sagittal reformats were then acquired through the thorax. For radiation dose reduction, the follo wing was used: automated exposure control, adjustment of mA and/or kV according to patient size. COMPARISON: None. FINDINGS: Image quality: Excellent. Pulmonary arteries: Nonocclusive segmental and subsegmental emboli are present within the right lower lobe pulmonary arteries. Lungs and pleura: There is diffuse interlobular septal thickening bilaterally. There is a large low d ensity left pleural effusion. Mediastinum: The heart is enlarged. No pericardial effusion. No leftward septal bowing to suggest rig ht cardiac strain. No mediastinal or hilar adenopathy. Thoracic aorta is normal in caliber and enhan cement. Esophagus is normal in caliber, without hiatal hernia. Bones and chest wall: No suspicious bony lesions. Ribs and thoracic spine appear intact throughout. Thyroid gland is unremarkable. No axillary or supraclavicular adenopathy. Abdomen: Visualized upper abdominal solid organs appear normal in the early arterial phase of enhanc ement. IMPRESSION: 1. Nonocclusive segmental and subsegmental pulmonary emboli within the right lower lobe. No evidence for right cardiac strain. 2. Large left pleural effusion. 3. Cardiomegaly and pulmonary edema cardiomegaly suspicious for congestive heart failure. These findings were discussed with Dr. Blackwood at 5:08 PM on 10/31/16. Dictated by: Ela Woods M.D. on 10/31/2016 at 17:05 Approved by: Ela Woods M.D. on 10/31/2016 at 17:11
--- NOTE | 2016-10-31 18:22 | NUR ---
Tachy in 150[address] Per [address] monitor pt had tachy HR burst into 150's for 20 second duration that resolved on its own, notified, continuing to monitor.
[2016-10-31] MEDS ORDERED: Heparin 5,000 Unit/mL Inj IVPUSH ONE (18:50)
[2016-10-31] MEDS ORDERED: Heparin 5,000 Unit/mL Inj IVPUSH PRN (18:50)
[2016-10-31] MEDS: Heparin 25K Unit/500mL 0.45 NS 25,000 UNIT in IV Premix 1 EACH IV SCH (19:35)
[2016-10-31 19:50] LABS: INR 1.14 ratio
--- NOTE | 2016-10-31 20:15 | PCM.CONPHA ---
Subjective Date of Service: Oct 31, 2016 Weakness Reason for Pharmacy Consult: Anticoagulation Management Objective Vital Signs Date Time Temp Pulse Resp B/P Pulse Ox O2 Delivery O2 Flow Rate FiO2 10/31/16 15:21 36.5 60 17 113/66 94 Room Air 10/31/16 09:53 36.3 61 17 146/72 97 Nasal Cannula 2.00 10/31/16 08:00 69 10/31/16 07:41 36.4 61 16 112/69 97 Nasal Cannula 2.00 10/31/16 07:30 Supplement Oxygen 10/31/16 05:48 68 10/31/16 05:00 36.4 60 18 109/73 97 Nasal Cannula 2.00 10/31/16 01:38 36.8 61 20 99/62 95 Nasal Cannula 2.00 10/30/16 21:59 Supplement Oxygen 10/30/16 20:24 36.9 66 20 113/70 96 Nasal Cannula 2.00 Intake and Output 10/29/16 10/30/16 10/31/16 00:00 00:00 00:00 Intake Total 750 ml 488 ml 196 ml Balance 750 ml 488 ml 196 ml Weight (Kilograms): 62.900 Height (Feet): 5 Height (Inches): 4.00 Test 10/27/16 07:37 10/27/16 09:13 10/30/16 06:00 10/30/16 07:20 Lactic Acid Level 1.5mmol/L (0.4-2.0) Procalcitonin 0.07ng/mL (0.00-0.08) Urine Color Yellow (YELLOW) Urine Appearance Hazy (CLEAR,HAZY) Urine pH 5.0 (5.0-8.0) Urine Specific [place] 1.016 (1.003-1.035) Urine Protein Negativemg/dL (NEG,TRACE) Urine Glucose (UA) Negativemg/dL (NEGATIVE) Urine Ketones Negativemg/dL (NEGATIVE) Urine Occult Blood Negative (NEGATIVE) Urine Nitrite Negative (NEGATIVE) Urine Bilirubin Negative (NEGATIVE) Urine Urobilinogen Normalmg/dL (NORMAL) Urine Leukocyte Esterase Moderate (NEGATIVE) Urine RBC 0-2/hpf (0-2) Urine WBC >50/hpf (0-5) Urine Epithelial Cells Few/hpf (NONE-MOD) Urine Crystals None seen (NONE SEEN) Urine Bacteria Many/hpf (NONE-FEW) Urine Hyaline Casts None/lpf (NONE) Urine Granular Casts None seen (NONE SEEN) Urine Waxy Casts None seen (NONE SEEN) Urine Red Blood Cell Casts None seen (NONE SEEN) Urine White Blood Cell Casts None seen (NONE SEEN) Urine Mucus None seen (None Seen) Urine Trichomonas None seen (NONE SEEN) Urine Yeast None (NONE SEEN) Urinalysis Comment None Urine Culture Reflexed Indicated Pro-B-Type Natriuretic Peptide 12957zu/mL (0-738) Troponin T 0.039ug/L (0.0-0.011) Test 10/31/16 05:10 10/31/16 19:00 White Blood Count 7.1th/mm3 (3.8-10.1) Red Blood Count 3.58mil/mm3 (3.90-5.20) Hemoglobin 11.7g/dL (12.0-15.6) Hematocrit 36.0% (35.0-46.0) Mean Corpuscular Volume 100.6fL (81-100) Mean Corpuscular Hemoglobin 32.7pg (27.0-35.0) Mean Corpuscular Hemoglobin Concent 32.5% (32.0-37.0) Red Cell Distribution Width 13.7% (12.3-15.4) Platelet Count 193bil/L (150-400) Neutrophils (%) (Auto) 74.1% (40-74) Lymphocytes (%) (Auto) 10.1% (14-46) Monocytes (%) (Auto) 12.5% (4-12) Eosinophils (%) (Auto) 2.9% (0-5) Basophils (%) (Auto) 0.1% (0-3) Sodium Level 140mEq/L (134-144) Potassium Level 3.7mEq/L (3.5-5.2) Chloride Level 105mEq/L (97-108) Carbon Dioxide Level 20mmol/L (18-29) Blood Urea Nitrogen 27mg/dL (8-27) Creatinine 0.88mg/dL (0.57-1.00) Estimat Glomerular Filtration Rate 88mL/min (>59) Glucose Level 98mg/dL (60-99) Calcium Level 8.7mg/dL (8.5-10.1) Magnesium Level 2.4mg/dL (1.6-2.6) Total Bilirubin 0.3mg/dL (0.0-1.2) Aspartate Amino Transf (AST/SGOT) 23U/L (0-50) Alanine Aminotransferase (ALT/SGPT) 23U/L (0-32) Alkaline Phosphatase 66U/L (25-165) Total Protein 5.8g/dL (6.4-8.4) Albumin 2.9g/dL (3.4-5.0) Prothrombin Time 12.2sec (8.1-12.5) Prothromb Time International Ratio 1.14ratio Activated Partial Thromboplast Time 40.8sec (22.8-33.0) Assessment/Plan Assessment/Plan Warfarin dosing per pharmacy Indication: possible PE INR goal: 2-3 Home warfarin dose: N/A -- new start Pertinent info: - Patient is anticoagulated with heparin drip. - Also on aspirin 81 mg and Plavix 75 mg. - HCT 36.0 / Plt 193 - INR: 1.14 Start with standard dosing regimen of 5 mg. Give warfarin 5 mg PO once this evening. Serial INRs have been ordered x5. Pharmacy to continue to monitor and dose warfarin daily. Thank you, Osvaldo Nieto Pharmacist Osvaldo Nieto Oct 31, 2016 20:15
--- NOTE | 2016-10-31 23:48 | PCM.ADCARE ---
Advance Care Planning Note Purpose of Encounter: To discuss goals of care with patient and her at bedside. Parties in Attendance: The patient and her Royce Decisional Capacity: The patient is unable to make any definitive decisions for herself and her is her decision maker. Subjective: The patient has dementia and end-stage ischemic cardiomyopathy. She is also bedbound due to a yet undiagnosed neurological condition. Objective: To determine goals of care. Goals of Care Determinations: Patient is to be a DNR/DNI and we have decided to consult hospice care with the intention of discharging patient home with hospice so that she may be comfortable. Plan: Hospice will make a visit with the patient and the patient's tomorrow in the hospital. CODE STATUS: DNR/DNI Time Spent Adv.Care Planning: Over 30 minutes were spent in advanced care planning. Adv. Care Plan Documenation: As above. Nate Gonzales MD Oct 31, 2016 23:48
--- NOTE | 2016-10-31 23:54 | PCM.PNMED ---
Subjective Date of Service Oct 31, 2016 Subjective The patient remains pleasantly confused. She is comfortable and has no respiratory complaints other than cough. She has no fever, no chills, no diaphoresis. Exam Vital Signs Vital Sign - Last Date Time Temp Pulse Resp B/P Pulse Ox O2 Delivery O2 Flow Rate FiO2 10/31/16 21:23 36.9 52 18 120/77 95 Room Air 10/31/16 09:53 2.00 Intake and Output 10/30/16 10/30/16 10/31/16 Cumulative From/Thru 15:00 23:00 07:00 10/27/16 15:44 - 10/31/16 06:59 Intake Total 196 ml 50 ml 1534 ml Output Total 300 ml Balance 196 ml 50 ml 1234 ml Intake Oral 136 ml 50 ml 1404 ml IV Total 60 ml 130 ml Output Urine Total 300 ml # Voids 2 2 18 # Bowel Movements 0 3 6 Exam General: Patient is in no apparent distress and she appears more lucid and responsive today. HEENT: Head is atraumatic and normocephalic. Eyes: Pupils are equally round and reactive to light and accommodation. Extraocular muscles are intact. Sclera are white, anicteric. Subconjunctival mucosa is pink. Ears and nose are unremarkable. Oropharynx: There is no mucosal lesions, there is no thrush, there is no pharyngitis. Neck: Is supple, there are no nodes, or masses or tenderness. Chest: Is significant for decreased breath sounds at the left base. Otherwise, the lungs were clear. There are no rales, rhonchi, wheezes or rubs. Heart: Rate, rhythm is regular. There is no murmur, rub or gallop. Abdomen: Good bowel sounds are present. Abdomen is soft, nontender, no organomegaly or masses were appreciated. Extremities: Are symmetrical and well perfused. There is minimal edema, there is no cellulitis, no rash. Neurologic: The patient appears pleasantly demented. There is generalized weakness more pronounced on the left side. Psychiatric: Patients mood is calm and shows no sign of agitation. She remains pleasantly confused and oriented only to person. She is able to recognize family members. Genital: Deferred Rectal: Deferred Lab and Diagnostics Result Diagram: 10/31/16 0510 10/31/16 0510 Microbiology Specimen: [id number] Collected: 10/27/16 Status: ARIELLA Req#: [id number] Received: 10/27/16 Source: URINE CC Sp Desc : Subm Dr: Kimani Magaña MD Ordered: URINE CULT Procedure Result Verified Site Microbiology ERICKA CULT URINE Final 10/29/16 Organism 1 ESCHERICHIA COLI U COLONY COUNT/QUANTITY >100,000 CFU/ml Cefazolin-predicts results for the oral agents, cefaclor,cefdinir, cefpodoximen, cefprozil, cefuroximne axetil, cephalexin and loracarbed when used for therapy of uncomplicated UTI's due to E. coli, K. pneumoniae, and Proteus mirabilis. Cefpodoxime, cefdinir and cefuroxime axetil may be tested individually because some isolates may be susceptible to these agents while testing resistant to cefazolin. (CLSI O301-C75 pg 53) 1. ESCHERICHIA COLI M.I.C Interp --------- ------ * AMOXICILLIN/CLAVULATE <=2 S * AMPICILLIN <=2 S * CEFAZOLIN (CEPHALOSPORIN) UTI 4 S * CEFEPIME <=1 S * CEFTRIAXONE <=1 S * CEFUROXIME SODIUM 16 I * CIPROFLOXACIN <=0.25 S * ERTAPENEM <=0.5 S * GENTAMICIN <=1 S * IMIPENEM <=1 S * LEVOFLOXACIN <=0.12 S * NITROFURANTOIN <=16 S * TETRACYCLINE <=1 S * TOBRAMYCIN <=1 S * TRIMETHOPRIM/SULFAMETHOXAZOLE <=20 S X-Rays, CTs and MRIs [facility] Diagnostic Imaging Department [place], [place] [id number] Patient Name: MIKI SAENZ I MR#: [id number] [place] [facility] [place] Phys: Kimani Magaña MD Date of Service: 10/27/16 0708 PROCEDURE: X-RAY CHEST ONE VIEW, PORTABLE ([id number]) INDICATIONS: cough, sob TECHNIQUE: One view of the chest was acquired. COMPARISON: None. FINDINGS: Surgical changes and devices: None. Lungs and pleura: No pneumothorax. Dense left basilar consolidation. Cannot exclude small left pleural effusion. Mediastinum: Mediastinal contours appear normal. Heart size is normal. Bones and chest wall: No suspicious bony lesions. Overlying soft tissues appear unremarkable. IMPRESSION: Dense left basilar pneumonia. Recommend radiographic followup to document resolution and exclude underlying pulmonary nodule Dictated by: Hosea Sheridan M.D. on 10/27/2016 at 8:05 Approved by: Hosea Sheridan M.D. on 10/27/2016 at 8:06 PROCEDURE: US VEINOUS LEG DUPLEX UNILATERAL, LEFT INDICATIONS: swelling LLE ro DVT TECHNIQUE: Real-time imaging, as well as color and pulse Doppler interrogation, were performed of the lower extremity deep veins from the inguinal ligament to the popliteal fossa. COMPARISON: None. FINDINGS: The deep veins are normally compressible, and free of intraluminal thrombus. Color and pulse Doppler demonstrate normal phasic intraluminal flow. There is normal augmentation response to distal compression maneuver. IMPRESSION: No evidence of deep venous thrombosis. Dictated by: Hosea Sheridan M.D. on 10/27/2016 at 13:55 Approved by: Hosea Sheridan M.D. on 10/27/2016 at 13:56 Cardiac Echo Impressions Echocardiogram Report Name: MIKI SAENZ Siva e: 09/08/2016 Height: 66 in Hospital Exam Location: [facility] Weight: 13 3 lb Gender: Female BSA: 1.7 m2 : 1930 Age: 85 yrs BP: 116/62 mmHg Reason For Study: CAD Ordering Physician: HOSPITALIST [facility] Performed By: Oma Farris Referring Physician: Dr. Manny Montana Interpretation Summary Left ventricular systolic function is moderate to severely reduced. Left ventricular ejection fraction is estimated to be 25%. Compared to the prior exam, left ventricular function is significantly decreased. There is a large sized apical, septal, anteroseptal, inferior, and posterior wall motion abnormality with hypokinesis to akinesis of the segments. There are new LV wall motion abnormalities. Assessment of diastolic parameters suggests a pseudonormalization pattern, consistent with elevated filling pressures. The right ventricle grossly appears normal in size with probable normal systolic function. The left atrium is mildly dilated. Right atrial size is normal. There is mild to moderate mitral regurgitation. Compared to the prior echo study, there has been an increase in the severity of mitral regurgitation. There is no other significant valvular heart disease. The aortic root is normal size. Assessment & Plan This is a 86-year-old female with past medical history of dementia, CAD, status post OR, SVT, hypertension, angioplasty and Coronary stents, who presented to the [facility] emergency room as her found it difficult to wake her up and transfer her out of the bed. Patient appeared to be aware of her 's name, mumbling a lot but otherwise fairly nonverbal. Patient was discharged from the hospital recently on lisinopril, Plavix, aspirin , metoprolol but apparently at the time of admission to ED she is only on metoprolol. Apparently her primary care doctor Dr. Montana discontinued all of her medications except for metoprolol 2 weeks prior to admission Her cough was worse, edema was worse and now she could not get up from bed. In the ER chest x-ray showed left pleural effusion and findings consistent with possible left lower lobe pneumonia, white count is normal BNP is elevated at 22, 000 and troponin within normal EKG shows no changes from before. Prior echo performed on August 2016 shows 25% ejection fraction and severe hypokinesis her vital signs were stable Patient was admitted to the hospital for CHF management and possible left lower lobe pneumonia # Acute on chronic systolic heart failure, present at the time of admission. Active and still problematic -- Patient was initially diuresed with IV Lasix, she exhibited SVT on the monitor and storage bin tender this afternoon we decided to order further diuresis. Metoprolol dose was increased to 25 mg twice a day. We have increased the dose further to 50 mg by mouth twice a day -- The patient was placed on losartan instead of lisinopril. Continue home statin and aspirin, Plavix -- Telemonitoring, morphine when necessary, oxygen when necessary -- Daily weights, and accurate ins and outs -- Echocardiogram in August 2016 showed 25 % EF -- We released the patient's Lasix 40 mg daily by mouth to 40 mg by mouth twice a day - Consulted Dr. Jesus Alberto Calvillo of cardiology and appreciate his input and recommendations. # Possible left lower lobe pneumonia -- Rocephin started today will continue -- Serial chest x-rays will be needed. -- X-ray of the chest ordered for 10/30/2016 looks worse -- CT scan of the chest shows large left pleural effusion and pulmonary emboli in the right lung # Urinary tract infection with Escherichia coli sensitive to ceftriaxone -- Rocephin has been started and we will continue # Cough. -- Likely due to CHF -- Tessalon Perles for symptomatic relief -- We have also changed Lisinopril to losartan Chronic problems: # History of CAD: Continue Aspirin, metoprolol, losartan # History of SVT: Continue metoprolol I had long discussion with patient's Royce and Dr. Jesus Alberto Calvillo prior to knowing the CT scan results. At that time it was decided that the best course of action would be hospice care. However, after receiving the CT angiogram report that revealed pulmonary emboli and a large left pleural effusion after long discussion with the patient's Royce it was decided that the patient would benefit from IV heparin therapy and left thoracentesis which would be palliative and possibly diagnostic.. Patient will be started on Coumadin. This will allow Royce some time to discuss the patient's situation with the rest of the family and then make further determinations. We will plan on further advanced care planning meetings with the patient and the patient's Royce. CODE STATUS: DNR/DNI Alternate decision-maker: Disposition: respiratory services manager will likely need to work on transfer to assisted facility once the above problems have been stabilized. Pain Evaluation: Adequate Pain Control GI Prophylaxis: H2 derek VTE Prophylaxis: Sub-Q Enoxaparin VTE Mechanical Devices: Intermittant Pneumatic CD Resuscitation Status: DNR/DNI:Do Not Resuscitate/Intubate Nate Gonzales MD Oct 31, 2016 23:54
[2016-11-01] VITALS (7 sets, daily range): BP systolic 94–143; BP diastolic 56–91; PULSE 65–73; RESP 17–23; O2SAT 94–96
[2016-11-01] MEDS: Sodium Chloride LOK Flush 10 mL Syringe IVFLUSH SCH ×3 (00:41→16:27)
[2016-11-01 06:04] LABS: BASOPHILS % (AUTO) 0.5 % (0-3); EOSINOPHILS % (AUTO) 3.2 % (0-5); MONOCYTES % (AUTO) 13.2 % (4-12); Mean Corpuscular Hemoglobin 32.5 pg (27.0-35.0); Mean Corpuscular Volume 100.3 fL (81-100); NEUTROPHILS % (AUTO) 70.5 % (40-74); Platelet Count 187 bil/L (150-400)
[2016-11-01 06:18] LABS: Magnesium 2.2 mg/dL (1.6-2.6)
[2016-11-01 06:28] LABS: INR 1.26 ratio
--- NOTE | 2016-11-01 06:36 | NUR ---
Heparin Drip Pt was started on heparin drip at beginning of shift and has shown no signs of bleeding over shift. Pts first Ptt check was high and drip was stopped for an hour. Recheck was still high and heparin drip remained of for another 60 minutes. next check was low enough to restart drip per protocol. Drip rate was adjusted and restarted. Next Ptt was re-timed.
[2016-11-01] MEDS: cefTRIAXone 2,000 mg/D5W 50 mL IV Minibag Plus IV SCH ×2 (09:01)
[2016-11-01] MEDS: Potassium Chloride 20 mEq SR Tablet PO SCH (09:01)
--- NOTE | 2016-11-01 10:57 | DRSVH ---
PROCEDURE: X-RAY CHEST ONE VIEW, PORTABLE ([id number]) INDICATIONS: post thorosentsis TECHNIQUE: One view of the chest was acquired. COMPARISON: [facility], CR, XR CHEST 1VW (PORTABLE), 10/30/2016, 5:24. FINDINGS: Surgical changes and devices: None. Lungs and pleura: There is a large left pleural effusion. There is likely consolidation at the left l colin base. There is no pneumothorax. Mediastinum: Mediastinal contours appear normal. Heart size is normal. Bones and chest wall: No suspicious bony lesions. Overlying soft tissues appear unremarkable. IMPRESSION: No pneumothorax after recent thoracentesis. Dictated by: Ela Woods M.D. on 11/01/2016 at 10:54 Approved by: Ela Woods M.D. on 11/01/2016 at 10:55
--- NOTE | 2016-11-01 11:17 | ABG ---
DateTimeAnalyzed 11:07:00 -_ pH ____7.440 - 7.350 7.450 FIO2 ___21.0__ -% Drawn By ams - Date/Time Notified____ 11:16:00 -_ Notified By ams - Notified Whom Garrison, Halley MD -___ Abran test N/A -
--- NOTE | 2016-11-01 11:32 | DRSVH ---
PROCEDURE: US GUIDED THORACENTESIS BY REFERRING PHYSICIAN ([id number]) INDICATIONS: Large left pleural effusion TECHNIQUE: The indications, alternatives, benefits, risks, and complications of the procedure were explained to the patient. Written informed consent was obtained and placed in the chart. The chest was examined sonographically, and an appropriate site was chosen for thoracentesis. The skin was prepared and miguel ped in the usual sterile fashion, and 1% lidocaine was infiltrated from the skin down through the ple ural surface. A 19-gauge catheter-covered needle was then introduced into the pleural space, the cat heter was advanced and the needle was withdrawn, and thereafter pleural fluid was aspirated. The cat heter was then removed and a dressing was applied. The attending physician was present, and personal ly performed the procedure. COMPARISON: None. FINDINGS: Access site: Left hemithorax. Needle: One-Step centesis catheter with introducer needle. Fluid volume and description: 520 cc of clear pleural fluid Fluid sent for diagnostic testing: Fluid sent for cytology, multiple chemistry panels and therapeuti c drainage. Medications: 1% lidocaine for local anaesthesia. Complications: None; post-procedural chest radiograph is pending to assess for pneumothorax. IMPRESSION: Successful ultrasound-guided thoracentesis. Dictated by: Leroy BRANDON Interpreted: Ela Woods MD on 11/01/2016 at 11:31 Transcribed by: STANLEY on 11/01/2016 at 11:31 Approved by: Ela Woods M.D. on 11/01/2016 at 16:42
[2016-11-01 11:47] LABS: TOTAL PROTEIN,PLEURAL FLUID 3.7 g/dL
--- NOTE | 2016-11-01 11:57 | ABG ---
DateTimeAnalyzed 11:53:00 -_ pH ____7.473 - 7.350 7.450 pCO2 ___33.2__ -mmHg 35.0 45.0 pO2 ___78.9__ -mmHg 69.0 116 HCO3- ___24.0__ -mmol/L 22.0 26.0 ABE ____1.3__ -mmol/L -2.0 2.0 tHb ___11.7__ -g/dL O2Hb ___94.8__ -% COHb ____1.3__ -% MetHb ____0.9__ -% sO2 ___96.9__ -% FIO2 ___21.0__ -% Drawn By btl - Date/Time Notified____ 11:57:00 -_ Notified By btl - Notified Whom ___Dr. yimi stoddard -___ B 760 -mmHg tO2 ___15.7__ -Vol% Abran test _Positive -
[2016-11-01] MEDS: Isosorbide Mononitrate 30 mg ER24 Tablet PO SCH (12:17)
--- NOTE | 2016-11-01 12:22 | PCM.PHAPRO ---
Progress WARFARIN DOSING PER PHARMACY [facility] margarita DFF Date Nov 01-Oct INR 1.14 1.26 INR change 0.12 Warf Dose 5 MG 5 MG A/P -New start last PM for suspected PE. Subtherapeutic INR on heparin gtt. No s/s of acute bleeding. -Continue with warfarin 5 mg today. -Pharmacy to monitor. Dann Pennington,PharmDann Black Nov 01, 2016 12:22
[2016-11-01] MEDS: MeTOProlol XL 25 mg ER24 Tablet PO SCH ×2 (12:35→21:00)
[2016-11-01 12:43] LABS: BFWBC 395 /mm3; MONOCYTES,BODY FLUID 20 %; OTHER CELLS,BODY FLUID 0
--- NOTE | 2016-11-01 14:40 | NUR ---
took over patient care [id number]
[2016-11-02] VITALS (11 sets, daily range): BP systolic 97–111; BP diastolic 59–69; PULSE 57–71; RESP 16–24; O2SAT 94–96
--- NOTE | 2016-11-02 00:06 | PCM.PNMED ---
Subjective Date of Service Nov 01, 2016 Subjective Patient remains pleasantly confused she is oriented to person only. She does recognize her and her daughters. She has no new complaints. She tolerated the thoracentesis well and did not even remember that she had it done. Exam Vital Signs Vital Sign - Last Date Time Temp Pulse Resp B/P Pulse Ox O2 Delivery O2 Flow Rate FiO2 11/01/16 21:00 Supplement Oxygen 11/01/16 20:53 36.8 66 23 97/57 94 10/31/16 09:53 2.00 Intake and Output 10/31/16 10/31/16 11/01/16 Cumulative From/Thru 15:00 23:00 07:00 10/27/16 15:44 - 11/01/16 06:49 Intake Total 360 ml 170 ml 2064 ml Output Total 300 ml Balance 360 ml 170 ml 1764 ml Intake Oral 360 ml 0 ml 1764 ml IV Total 170 ml 300 ml Output Urine Total 300 ml # Voids 3 0 21 # Bowel Movements 1 0 7 Exam General: Patient remains pleasantly confused. She is oriented to person only. She does recognize her family members. HEENT: Head is atraumatic and normocephalic. Eyes: Pupils are equally round and reactive to light and accommodation. Extraocular muscles are intact. Sclera are white, anicteric. Subconjunctival mucosa is pink. Ears and nose are unremarkable. Oropharynx: There is no mucosal lesions, there is no thrush, there is no pharyngitis. Neck: Is supple, there are no nodes, or masses or tenderness. Chest: Is significant for decreased breath sounds at the left base. There are a few crackles at the left base. Heart: Rate, rhythm is regular. There is no murmur, rub or gallop. Abdomen: Good bowel sounds are present. Abdomen is soft, nontender, no organomegaly or masses were appreciated. Extremities: Are symmetrical and well perfused. There is minimal edema, there is no cellulitis, no rash. Neurologic: The patient appears pleasantly demented. There is generalized weakness more pronounced on the left side. Psychiatric: Patients mood is calm and shows no sign of agitation. She remains pleasantly confused and oriented only to person. She is able to recognize family members. Genital: Deferred Rectal: Deferred Lab and Diagnostics Result Diagram: 11/01/1630 11/01/16 05 Microbiology Specimen: [id number] Collected: 10/27/16 Status: COMP Req#: [id number] Received: 10/27/16 Source: URINE CC Sp Desc : Subm Dr: Kimani Magaña MD Ordered: URINE CULT Procedure Result Verified Site Microbiology ERICKA CULT URINE Final 10/29/16 Organism 1 ESCHERICHIA COLI U COLONY COUNT/QUANTITY >100,000 CFU/ml Cefazolin-predicts results for the oral agents, cefaclor,cefdinir, cefpodoximen, cefprozil, cefuroximne axetil, cephalexin and loracarbed when used for therapy of uncomplicated UTI's due to E. coli, K. pneumoniae, and Proteus mirabilis. Cefpodoxime, cefdinir and cefuroxime axetil may be tested individually because some isolates may be susceptible to these agents while testing resistant to cefazolin. (CLSI K987-G86 pg 53) 1. ESCHERICHIA COLI M.I.C Interp --------- ------ * AMOXICILLIN/CLAVULATE <=2 S * AMPICILLIN <=2 S * CEFAZOLIN (CEPHALOSPORIN) UTI 4 S * CEFEPIME <=1 S * CEFTRIAXONE <=1 S * CEFUROXIME SODIUM 16 I * CIPROFLOXACIN <=0.25 S * ERTAPENEM <=0.5 S * GENTAMICIN <=1 S * IMIPENEM <=1 S * LEVOFLOXACIN <=0.12 S * NITROFURANTOIN <=16 S * TETRACYCLINE <=1 S * TOBRAMYCIN <=1 S * TRIMETHOPRIM/SULFAMETHOXAZOLE <=20 S X-Rays, CTs and MRIs [facility] Diagnostic Imaging Department [place], [place] [id number] Patient Name: MIKI SAENZ I MR#: [id number] Location: [facility] Ordering Phys: Kimani Magaña MD Date of Service: 10/27/16 0708 PROCEDURE: X-RAY CHEST ONE VIEW, PORTABLE ([id number]) INDICATIONS: cough, sob TECHNIQUE: One view of the chest was acquired. COMPARISON: None. FINDINGS: Surgical changes and devices: None. Lungs and pleura: No pneumothorax. Dense left basilar consolidation. Cannot exclude small left pleural effusion. Mediastinum: Mediastinal contours appear normal. Heart size is normal. Bones and chest wall: No suspicious bony lesions. Overlying soft tissues appear unremarkable. IMPRESSION: Dense left basilar pneumonia. Recommend radiographic followup to document resolution and exclude underlying pulmonary nodule Dictated by: Hosea Sheridan M.D. on 10/27/2016 at 8:05 Approved by: Hosea Sheridan M.D. on 10/27/2016 at 8:06 PROCEDURE: US VEINOUS LEG DUPLEX UNILATERAL, LEFT INDICATIONS: swelling LLE ro DVT TECHNIQUE: Real-time imaging, as well as color and pulse Doppler interrogation, were performed of the lower extremity deep veins from the inguinal ligament to the popliteal fossa. COMPARISON: None. FINDINGS: The deep veins are normally compressible, and free of intraluminal thrombus. Color and pulse Doppler demonstrate normal phasic intraluminal flow. There is normal augmentation response to distal compression maneuver. IMPRESSION: No evidence of deep venous thrombosis. Dictated by: Hosea Sheridan M.D. on 10/27/2016 at 13:55 Approved by: Hosea Sheridan M.D. on 10/27/2016 at 13:56 Cardiac Echo Impressions Echocardiogram Report Name: MIKI SAENZ Siva e: 09/08/2016 Height: 66 in Hospital Exam Location: [facility] Weight: 13 3 lb Gender: Female BSA: 1.7 m2 : 1930 Age: 85 yrs BP: 116/62 mmHg Reason For Study: CAD Ordering Physician: HOSPITALIST [facility] Performed By: Oma Farris Referring Physician: Dr. Manny Montana Interpretation Summary Left ventricular systolic function is moderate to severely reduced. Left ventricular ejection fraction is estimated to be 25%. Compared to the prior exam, left ventricular function is significantly decreased. There is a large sized apical, septal, anteroseptal, inferior, and posterior wall motion abnormality with hypokinesis to akinesis of the segments. There are new LV wall motion abnormalities. Assessment of diastolic parameters suggests a pseudonormalization pattern, consistent with elevated filling pressures. The right ventricle grossly appears normal in size with probable normal systolic function. The left atrium is mildly dilated. Right atrial size is normal. There is mild to moderate mitral regurgitation. Compared to the prior echo study, there has been an increase in the severity of mitral regurgitation. There is no other significant valvular heart disease. The aortic root is normal size. Assessment & Plan This is a 86-year-old female with past medical history of dementia, CAD, status post [place], SVT, hypertension, angioplasty and Coronary stents, who presented to the [facility] emergency room as her found it difficult to wake her up and transfer her out of the bed. Patient appeared to be aware of her 's name, mumbling a lot but otherwise fairly nonverbal. Patient was discharged from the hospital recently on lisinopril, Plavix, aspirin , metoprolol but apparently at the time of admission to ED she is only on metoprolol. Apparently her primary care doctor Dr. Montana discontinued all of her medications except for metoprolol 2 weeks prior to admission Her cough was worse, edema was worse and now she could not get up from bed. In the ER chest x-ray showed left pleural effusion and findings consistent with possible left lower lobe pneumonia, white count is normal BNP is elevated at 22, 000 and troponin within normal EKG shows no changes from before. Prior echo performed on August 2016 shows 25% ejection fraction and severe hypokinesis her vital signs were stable Patient was admitted to the hospital for CHF management and possible left lower lobe pneumonia # Acute on chronic systolic heart failure, present at the time of admission. Active and still problematic -- Patient was initially diuresed with IV Lasix, she exhibited SVT on the residential monitor this afternoon we decided to order further diuresis. Metoprolol dose was increased to 25 mg twice a day. We have increased the dose further to 50 mg by mouth twice a day -- The patient was placed on losartan instead of lisinopril. Continue home statin and aspirin, Plavix -- Telemonitoring, morphine when necessary, oxygen when necessary -- Daily weights, and accurate ins and outs -- Echocardiogram in August 2016 showed 25 % EF -- We released the patient's Lasix 40 mg daily by mouth to 40 mg by mouth twice a day - Consulted Dr. Jesus Alberto Calvillo of cardiology and appreciate his input and recommendations. # Possible left lower lobe pneumonia -- Rocephin started today will continue -- Serial chest x-rays will be needed. -- X-ray of the chest ordered for 10/30/2016 looks worse -- CT scan of the chest shows large left pleural effusion and pulmonary emboli in the right lung. Therefore, the patient went for thoracentesis of the left lung today. Studies are pending. # Urinary tract infection with Escherichia coli sensitive to ceftriaxone -- Rocephin has been started and we will continue # Cough. -- Likely due to CHF -- Tessalon Perles for symptomatic relief -- We have also changed Lisinopril to losartan - Thoracentesis was performed on 11/01/2016 Chronic problems: # History of CAD: Continue Aspirin, metoprolol, losartan # History of SVT: Continue metoprolol I had long discussion with patient's Royce and Dr. Jesus Alberto Calvillo prior to knowing the CT scan results. At that time it was decided that the best course of action would be hospice care. However, after receiving the CT angiogram report that revealed pulmonary emboli and a large left pleural effusion after long discussion with the patient's Royce it was decided that the patient would benefit from IV heparin therapy and left thoracentesis which would be palliative and possibly diagnostic.. Patient will be started on Coumadin. This will allow Royce some time to discuss the patient's situation with the rest of the family and then make further determinations. We will plan on further advanced care planning meetings with the patient and the patient's Royce. CODE STATUS: DNR/DNI Alternate decision-maker: Disposition: web services architect will likely need to work on transfer to jail facility once the above problems have been stabilized. Pain Evaluation: Adequate Pain Control GI Prophylaxis: H2 derek VTE Prophylaxis: Sub-Q Enoxaparin VTE Mechanical Devices: Intermittant Pneumatic CD Resuscitation Status: DNR/DNI:Do Not Resuscitate/Intubate Nate Gonzales MD Nov 02, 2016 00:06
--- NOTE | 2016-11-02 00:14 | PCM.ADCARE ---
Advance Care Planning Note Purpose of Encounter: To further establish goals of care for this patient with end-stage ischemic cardiomyopathy and dementia Parties in Attendance: Patient's Royce and the patient's 2 daughters. (She has no other children ). Decisional Capacity: Patient is demented and unable to make any decisions on her own. Her is making decisions for her and would like me to explain the patient's current condition to the patient's 2 daughters. Subjective: The patient remains pleasantly demented and is oriented only to person and recognizes family members. Objective: The patient is suffering from end-stage ischemic cardiomyopathy and dementia. She is bedbound. Goals of Care Determinations: Patient and family had an informational visit by [facility] today and they do not feel that they are ready for the patient to go to hospice at this time. However, they understand that the patient's vision will not improve and in the long-term will continue to lead to further complications and recurrent hospitalizations. Therefore, they would like patient to be treated aggressively in the short-term and see how the patient responds. Then it is likely that the patient will be made comfortable at home with hospice when arrangements can be made. Plan: Plan is for discharge to a alf facility on full dose Lovenox for bridging to Coumadin therapy. Patient may also continue with IV antibiotics and the evaluated and treated by physical therapy and occupational therapy. Depending on patient's progress and family readiness patient may be able go home with her about hospice care. CODE STATUS: Patient is DO NOT RESUSCITATE/DO NOT INTUBATE Time Spent Adv.Care Planning: Time spent in advanced care planning was over 30 minutes. Adv. Care Plan Documenation: As above. Nate Gonzales MD Nov 02, 2016 00:14
[2016-11-02] MEDS: Sodium Chloride LOK Flush 10 mL Syringe IVFLUSH SCH ×3 (00:30→18:11)
[2016-11-02] MEDS: Heparin 25K Unit/500mL 0.45 NS 25,000 UNIT in IV Premix 1 EACH IV SCH (03:24)
[2016-11-02 06:50] LABS: BASOPHILS % (AUTO) 0.5 % (0-3); EOSINOPHILS % (AUTO) 4.4 % (0-5); MONOCYTES % (AUTO) 13.1 % (4-12); Mean Corpuscular Hemoglobin 32.2 pg (27.0-35.0); Mean Corpuscular Volume 98.9 fL (81-100); NEUTROPHILS % (AUTO) 69.4 % (40-74); Platelet Count 201 bil/L (150-400)
[2016-11-02 07:40] LABS: Magnesium 2.1 mg/dL (1.6-2.6)
[2016-11-02 07:43] LABS: INR 2.26 ratio
[2016-11-02 08:13] LABS: Phosphorus 3.7 mg/dL (2.5-4.9); TROPONIN T 0.024 ug/L (0.0-0.011)
[2016-11-02] MEDS: cefTRIAXone 2,000 mg/D5W 50 mL IV Minibag Plus IV SCH ×2 (09:03)
--- NOTE | 2016-11-02 10:10 | NUR ---
MARIBEL signed ELAINE Packer
[2016-11-02] MEDS: Potassium Chloride 20 mEq SR Tablet PO SCH (11:20)
[2016-11-02] MEDS: Isosorbide Mononitrate 30 mg ER24 Tablet PO SCH (11:21)
[2016-11-02] MEDS: MeTOProlol XL 25 mg ER24 Tablet PO SCH ×2 (11:58→20:30)
--- NOTE | 2016-11-02 14:34 | NUR ---
Withheld meds Due to low BP and HR, cardiac medications held this am. VS have been checked regularly and MD has been notified. Late am HR was sustaining in mid 60's and after consulting with MD the metoprolol was given. Dose #2 of lasix was withheld again due to persistent low BP. Continuing to monitor.
--- NOTE | 2016-11-02 15:58 | NUR ---
Social Work: Readiness for d/c Data: Pt is on day 6 of hospitalization. EMR reviewed, pt discussed in rounds. states pt likely to d/c in 1-2 days. DIRECTOR OF NEUROLOGY spoke with pt's spouse and explained that the insurance needs to authorize the SNF stay on the day of d/c. We will notify him of the decision when we know. DIRECTOR OF NEUROLOGY explained that a back up plan should be determined, explained that options include private pay SNF, private pay caregiving at home, HH, hospice, or CUSTODIAL. Pt's spouse states he will look into these things with a friend tomorrow and will get back to social work regarding their decision. DIRECTOR OF NEUROLOGY will continue to follow. Assessment: Pt with dementia. Plan: When pt is medically stable for d/c, insurance authorization needs to be pursued. If they approve, pt will go to [facility] as they are contracted with pt's insurance. If they deny, pt will either go to [facility] private pay, or go home with wither HH, hospice, or private pay caregiving, and pt's spouse likely to pursue CUSTODIAL. DIRECTOR OF NEUROLOGY to follow. ELAINE Packer
--- NOTE | 2016-11-02 16:13 | NUR ---
Pt has had low urine output this shift. Bladder scanned at 1610 and found 112 mL.
--- NOTE | 2016-11-02 17:55 | PCM.CONPHA ---
Subjective Date of Service: Nov 02, 2016 Requesting Provider: Nate Gonzales MD Reason for Pharmacy Consult: Anticoagulation Management Objective Vital Signs Date Time Temp Pulse Resp B/P Pulse Ox O2 Delivery O2 Flow Rate FiO2 11/02/16 17:14 36.8 58 17 109/61 95 Room Air 11/02/16 13:57 36.7 57 22 102/65 96 Room Air 11/02/16 12:00 64 11/02/16 10:40 61 111/69 11/02/16 10:06 71 97/59 11/02/16 08:50 58 98/67 11/02/16 08:10 36.3 63 24 104/60 96 Room Air 11/02/16 05:46 36.7 66 16 102/63 95 Room Air 11/02/16 05:32 66 11/02/16 01:27 36.7 62 21 106/63 94 Room Air 11/01/16 21:00 Supplement Oxygen 11/01/16 20:53 36.8 66 23 97/57 94 Room Air Intake and Output 10/31/16 11/01/16 11/02/16 00:00 00:00 00:00 Intake Total 196 ml 410 ml 833 ml Balance 196 ml 410 ml 833 ml Weight (Kilograms): 62.300 Height (Feet): 5 Height (Inches): 4.00 Test 10/27/16 07:37 10/27/16 09:13 11/01/16 05:30 11/01/16 10:30 Lactic Acid Level 1.5mmol/L (0.4-2.0) Procalcitonin 0.07ng/mL (0.00-0.08) Urine Color Yellow (YELLOW) Urine Appearance Hazy (CLEAR,HAZY) Urine pH 5.0 (5.0-8.0) Urine Specific [place] 1.016 (1.003-1.035) Urine Protein Negativemg/dL (NEG,TRACE) Urine Glucose (UA) Negativemg/dL (NEGATIVE) Urine Ketones Negativemg/dL (NEGATIVE) Urine Occult Blood Negative (NEGATIVE) Urine Nitrite Negative (NEGATIVE) Urine Bilirubin Negative (NEGATIVE) Urine Urobilinogen Normalmg/dL (NORMAL) Urine Leukocyte Esterase Moderate (NEGATIVE) Urine RBC 0-2/hpf (0-2) Urine WBC >50/hpf (0-5) Urine Epithelial Cells Few/hpf (NONE-MOD) Urine Crystals None seen (NONE SEEN) Urine Bacteria Many/hpf (NONE-FEW) Urine Hyaline Casts None/lpf (NONE) Urine Granular Casts None seen (NONE SEEN) Urine Waxy Casts None seen (NONE SEEN) Urine Red Blood Cell Casts None seen (NONE SEEN) Urine White Blood Cell Casts None seen (NONE SEEN) Urine Mucus None seen (None Seen) Urine Trichomonas None seen (NONE SEEN) Urine Yeast None (NONE SEEN) Urinalysis Comment None Urine Culture Reflexed Indicated Lactate Dehydrogenase 321U/L (100-190) Body Fluid Source Pleural fluid Body Fluid Color Yellow (Clear) Body Fluid Appearance Clear Body Fluid pH 7.5 (Not Estab.) Body Fluid WBC 395/mm3 Body Fluid RBC 445/mm3 Body Fluid Polynuclear WBCs 40% Body Fluid Lymphocytes 40% Body Fluid Monocytes 20% Body Fluid Eosinophils 0% Body Fluid Basophils 0% Body Fluid Lactate Dehydrogenase 155U/L Body Fluid Comment Pleural Fluid Total Protein 3.7g/dL Pleural Fluid Glucose 135mg/dL Test 11/02/16 05:57 11/02/16 14:30 White Blood Count 6.2th/mm3 (3.8-10.1) Red Blood Count 3.76mil/mm3 (3.90-5.20) Hemoglobin 12.1g/dL (12.0-15.6) Hematocrit 37.2% (35.0-46.0) Mean Corpuscular Volume 98.9fL (81-100) Mean Corpuscular Hemoglobin 32.2pg (27.0-35.0) Mean Corpuscular Hemoglobin Concent 32.5% (32.0-37.0) Red Cell Distribution Width 13.4% (12.3-15.4) Platelet Count 201bil/L (150-400) Neutrophils (%) (Auto) 69.4% (40-74) Lymphocytes (%) (Auto) 12.1% (14-46) Monocytes (%) (Auto) 13.1% (4-12) Eosinophils (%) (Auto) 4.4% (0-5) Basophils (%) (Auto) 0.5% (0-3) Prothrombin Time 24.6sec (8.1-12.5) Prothromb Time International Ratio 2.26ratio Sodium Level 142mEq/L (134-144) Potassium Level 4.0mEq/L (3.5-5.2) Chloride Level 105mEq/L (97-108) Carbon Dioxide Level 21mmol/L (18-29) Blood Urea Nitrogen 21mg/dL (8-27) Creatinine 0.93mg/dL (0.57-1.00) Estimat Glomerular Filtration Rate 82mL/min (>59) Glucose Level 104mg/dL (60-99) Calcium Level 9.0mg/dL (8.5-10.1) Phosphorus Level 3.7mg/dL (2.5-4.9) Magnesium Level 2.1mg/dL (1.6-2.6) Total Bilirubin 0.3mg/dL (0.0-1.2) Aspartate Amino Transf (AST/SGOT) 23U/L (0-50) Alanine Aminotransferase (ALT/SGPT) 25U/L (0-32) Alkaline Phosphatase 63U/L (25-165) Troponin T 0.024ug/L (0.0-0.011) Pro-B-Type Natriuretic Peptide 88453cm/mL (0-738) Total Protein 5.9g/dL (6.4-8.4) Albumin 2.9g/dL (3.4-5.0) Activated Partial Thromboplast Time 67.5sec (22.8-33.0) Assessment/Plan Assessment/Plan Enoxparin per Rx Indication: PE SCR 0..93 Heparin D/C'ed; start enoxaparin 60mg q12h Kurt Lamas PharmD Nov 02, 2016 17:55
--- NOTE | 2016-11-02 22:44 | PCM.PNMED ---
Subjective Date of Service Nov 02, 2016 Subjective Patient remains pleasantly confused. She has no complaints. Exam Vital Signs Vital Sign - Last Date Time Temp Pulse Resp B/P Pulse Ox O2 Delivery O2 Flow Rate FiO2 11/02/16 20:58 37.0 65 23 108/66 94 Room Air 10/31/16 09:53 2.00 Intake and Output 11/01/16 11/01/16 11/02/16 Cumulative From/Thru 15:00 23:00 07:00 10/27/16 15:44 - 11/02/16 06:42 Intake Total 663 ml 0 ml 2727 ml Output Total 300 ml Balance 663 ml 0 ml 2427 ml Intake Oral 436 ml 0 ml 2200 ml IV Total 227 ml 527 ml Output Urine Total 300 ml # Voids 4 1 26 # Bowel Movements 7 Exam General: Patient remains pleasantly confused. She is oriented to person only. She does recognize her family members. HEENT: Head is atraumatic and normocephalic. Eyes: Pupils are equally round and reactive to light and accommodation. Extraocular muscles are intact. Sclera are white, anicteric. Subconjunctival mucosa is pink. Ears and nose are unremarkable. Oropharynx: There is no mucosal lesions, there is no thrush, there is no pharyngitis. Neck: Is supple, there are no nodes, or masses or tenderness. Chest: Is much clearer today to auscultation and percussion. Heart: Rate, rhythm is regular. There is no murmur, rub or gallop. Abdomen: Good bowel sounds are present. Abdomen is soft, nontender, no organomegaly or masses were appreciated. Extremities: Are symmetrical and well perfused. There is minimal edema, there is no cellulitis, no rash. Neurologic: The patient appears pleasantly demented. There is generalized weakness more pronounced on the left side. Psychiatric: Patients mood is calm and shows no sign of agitation. She remains pleasantly confused and oriented only to person. She is able to recognize family members. Genital: Deferred Rectal: Deferred Lab and Diagnostics Result Diagram: 11/02/1657 11/02/16556 Microbiology Specimen: [id number] Collected: 10/27/16 Status: COMP Req#: [id number] Received: 10/27/16 Source: URINE CC Sp Desc : Subm Dr: Kimani Magaña MD Ordered: URINE CULT Procedure Result Verified Site Microbiology ERICKA CULT URINE Final 10/29/16-0817 Organism 1 ESCHERICHIA COLI U COLONY COUNT/QUANTITY >100,000 CFU/ml Cefazolin-predicts results for the oral agents, cefaclor,cefdinir, cefpodoximen, cefprozil, cefuroximne axetil, cephalexin and loracarbed when used for therapy of uncomplicated UTI's due to E. coli, K. pneumoniae, and Proteus mirabilis. Cefpodoxime, cefdinir and cefuroxime axetil may be tested individually because some isolates may be susceptible to these agents while testing resistant to cefazolin. (CLSI O651-Q63 pg 53) 1. ESCHERICHIA COLI M.I.C Interp --------- ------ * AMOXICILLIN/CLAVULATE <=2 S * AMPICILLIN <=2 S * CEFAZOLIN (CEPHALOSPORIN) UTI 4 S * CEFEPIME <=1 S * CEFTRIAXONE <=1 S * CEFUROXIME SODIUM 16 I * CIPROFLOXACIN <=0.25 S * ERTAPENEM <=0.5 S * GENTAMICIN <=1 S * IMIPENEM <=1 S * LEVOFLOXACIN <=0.12 S * NITROFURANTOIN <=16 S * TETRACYCLINE <=1 S * TOBRAMYCIN <=1 S * TRIMETHOPRIM/SULFAMETHOXAZOLE <=20 S X-Rays, CTs and MRIs [facility] Diagnostic Imaging Department [place], [place] [id number] Patient Name: MIKI SAENZ I MR#: [id number] Location: [facility] [place] Ordering Phys: Kimani Magaña MD Date of Service: 10/27/16 0708 PROCEDURE: X-RAY CHEST ONE VIEW, PORTABLE ([id number]) INDICATIONS: cough, sob TECHNIQUE: One view of the chest was acquired. COMPARISON: None. FINDINGS: Surgical changes and devices: None. Lungs and pleura: No pneumothorax. Dense left basilar consolidation. Cannot exclude small left pleural effusion. Mediastinum: Mediastinal contours appear normal. Heart size is normal. Bones and chest wall: No suspicious bony lesions. Overlying soft tissues appear unremarkable. IMPRESSION: Dense left basilar pneumonia. Recommend radiographic followup to document resolution and exclude underlying pulmonary nodule Dictated by: Hosea Sheridan M.D. on 10/27/2016 at 8:05 Approved by: Hosea Sheridan M.D. on 10/27/2016 at 8:06 PROCEDURE: US VEINOUS LEG DUPLEX UNILATERAL, LEFT INDICATIONS: swelling LLE ro DVT TECHNIQUE: Real-time imaging, as well as color and pulse Doppler interrogation, were performed of the lower extremity deep veins from the inguinal ligament to the popliteal fossa. COMPARISON: None. FINDINGS: The deep veins are normally compressible, and free of intraluminal thrombus. Color and pulse Doppler demonstrate normal phasic intraluminal flow. There is normal augmentation response to distal compression maneuver. IMPRESSION: No evidence of deep venous thrombosis. Dictated by: Hosea Sheridan M.D. on 10/27/2016 at 13:55 Approved by: Hosea Sheridan M.D. on 10/27/2016 at 13:56 Cardiac Echo Impressions Echocardiogram Report Name: MIKI SAENZtudy Siva e: 09/08/2016 Height: 66 in Hospital Exam Location: [facility] Weight: 13 3 lb Gender: Female BSA: 1.7 m2 : 1930 Age: 85 yrs BP: 116/62 mmHg Reason For Study: CAD Ordering Physician: HOSPITALIST [facility] Performed By: Oma Farris Referring Physician: Dr. Manny Montana Interpretation Summary Left ventricular systolic function is moderate to severely reduced. Left ventricular ejection fraction is estimated to be 25%. Compared to the prior exam, left ventricular function is significantly decreased. There is a large sized apical, septal, anteroseptal, inferior, and posterior wall motion abnormality with hypokinesis to akinesis of the segments. There are new LV wall motion abnormalities. Assessment of diastolic parameters suggests a pseudonormalization pattern, consistent with elevated filling pressures. The right ventricle grossly appears normal in size with probable normal systolic function. The left atrium is mildly dilated. Right atrial size is normal. There is mild to moderate mitral regurgitation. Compared to the prior echo study, there has been an increase in the severity of mitral regurgitation. There is no other significant valvular heart disease. The aortic root is normal size. Assessment & Plan This is a 86-year-old female with past medical history of dementia, CAD, status post ME, SVT, hypertension, angioplasty and Coronary stents, who presented to the [facility] emergency room as her found it difficult to wake her up and transfer her out of the bed. Patient appeared to be aware of her 's name, mumbling a lot but otherwise fairly nonverbal. Patient was discharged from the hospital recently on lisinopril, Plavix, aspirin , metoprolol but apparently at the time of admission to ED she is only on metoprolol. Apparently her primary care doctor Dr. Montana discontinued all of her medications except for metoprolol 2 weeks prior to admission Her cough was worse, edema was worse and now she could not get up from bed. In the ER chest x-ray showed left pleural effusion and findings consistent with possible left lower lobe pneumonia, white count is normal BNP is elevated at 22, 000 and troponin within normal EKG shows no changes from before. Prior echo performed on August 2016 shows 25% ejection fraction and severe hypokinesis her vital signs were stable Patient was admitted to the hospital for CHF management and possible left lower lobe pneumonia # Acute on chronic systolic heart failure, present at the time of admission. Active and still problematic -- Patient was initially diuresed with IV Lasix, she exhibited SVT on the potline monitor this afternoon we decided to order further diuresis. Metoprolol dose was increased to 25 mg twice a day. We have increased the dose further to 50 mg by mouth twice a day. Patient's BNP has dropped from approximately 30,000-14,000 today -- The patient was placed on losartan instead of lisinopril. Continue home statin and aspirin, Plavix -- Telemonitoring, morphine when necessary, oxygen when necessary -- Daily weights, and accurate ins and outs -- Echocardiogram in August 2016 showed 25 % EF -- We released the patient's Lasix 40 mg daily by mouth to 40 mg by mouth twice a day - Consulted Dr. Jesus Alberto Calvillo of cardiology and appreciate his input and recommendations. # Possible left lower lobe pneumonia -- Rocephin started today will continue -- Serial chest x-rays will be needed. -- X-ray of the chest ordered for 10/30/2016 looks worse -- CT scan of the chest shows large left pleural effusion and pulmonary emboli in the right lung. Therefore, the patient went for thoracentesis of the left lung today. Studies are pending. # Urinary tract infection with Escherichia coli sensitive to ceftriaxone -- Rocephin has been started and we will continue # Cough. -- Likely due to CHF -- Tessalon Perles for symptomatic relief -- We have also changed Lisinopril to losartan - Thoracentesis was performed on 11/01/2016 # Pleural effusion - Status post left thoracentesis - This appears transudative. The culture and cytology/pathology are pending Chronic problems: # History of CAD: Continue Aspirin, metoprolol, losartan # History of SVT: Continue metoprolol I had long discussion with patient's Royce and Dr. Jesus Alberto Calvillo prior to knowing the CT scan results. At that time it was decided that the best course of action would be hospice care. However, after receiving the CT angiogram report that revealed pulmonary emboli and a large left pleural effusion after long discussion with the patient's Royce it was decided that the patient would benefit from IV heparin therapy and left thoracentesis which would be palliative and possibly diagnostic.. Patient will be started on Coumadin. This will allow Royce some time to discuss the patient's situation with the rest of the family and then make further determinations. We will plan on further advanced care planning meetings with the patient and the patient's Royce. CODE STATUS: DNR/DNI Alternate decision-maker: Disposition: business services tech will likely need to work on transfer to long term facility once the above problems have been stabilized. Pain Evaluation: Adequate Pain Control GI Prophylaxis: H2 derek VTE Prophylaxis: Sub-Q Enoxaparin VTE Mechanical Devices: Intermittant Pneumatic CD Resuscitation Status: DNR/DNI:Do Not Resuscitate/Intubate Nate Gonzales MD Nov 02, 2016 22:44
[2016-11-03] VITALS (9 sets, daily range): BP systolic 99–124; BP diastolic 59–78; PULSE 61–87; RESP 17–22; O2SAT 95–97
[2016-11-03] MEDS: Sodium Chloride LOK Flush 10 mL Syringe IVFLUSH SCH ×3 (00:30→17:17)
[2016-11-03 07:24] LABS: INR 3.6 ratio
[2016-11-03] MEDS: Potassium Chloride 20 mEq SR Tablet PO SCH (08:19)
[2016-11-03] MEDS: cefTRIAXone 2,000 mg/D5W 50 mL IV Minibag Plus IV SCH ×2 (08:20)
[2016-11-03] MEDS: MeTOProlol XL 25 mg ER24 Tablet PO SCH ×2 (10:08→21:54)
[2016-11-03] MEDS: Isosorbide Mononitrate 30 mg ER24 Tablet PO SCH (10:09)
[2016-11-03 11:50] LABS: BASOPHILS % (AUTO) 0.3 % (0-3); EOSINOPHILS % (AUTO) 1.6 % (0-5); MONOCYTES % (AUTO) 13.7 % (4-12); Mean Corpuscular Hemoglobin 32.1 pg (27.0-35.0); NEUTROPHILS % (AUTO) 76.1 % (40-74); Platelet Count 222 bil/L (150-400)
[2016-11-03 12:31] LABS: Magnesium 2.1 mg/dL (1.6-2.6)
--- NOTE | 2016-11-03 12:37 | DRSVH ---
PROCEDURE: X-RAY CHEST ONE VIEW, PORTABLE ([id number]) INDICATIONS: Follow up for Pneumonia/Infiltrate TECHNIQUE: One view of the chest was acquired. COMPARISON: [facility], CR, XR CHEST 1VW (PORTABLE), 11/01/2016, 10:35. FINDINGS: Surgical changes and devices: None. Lungs and pleura: There is a small left pleural effusion with left basilar consolidation consistent with pneumonia, unchanged. No pneumothorax. Mediastinum: Mediastinal contours appear normal. Heart size is normal. Bones and chest wall: No suspicious bony lesions. Overlying soft tissues appear unremarkable. IMPRESSION: Persistent left basilar pneumonia. Dictated by: Darlene Langford M.D. on 11/03/2016 at 12:35 Approved by: Darlene Langford M.D. on 11/03/2016 at 12:35
--- NOTE | 2016-11-03 23:32 | PCM.PNMED ---
Subjective Date of Service Nov 03, 2016 Subjective The patient remains pleasantly confused. Her grandchildren were visiting her and she thought that they were friends. She could not tell me whether I was the doctor or the bobbin cleaner hand even though I was wearing a white "and stethoscope and was listening to her heart. She continues to have no idea where she is or what time it is or what season it is. She again remains pleasantly confused and is oriented only to person. Exam Vital Signs Vital Sign - Last Date Time Temp Pulse Resp B/P Pulse Ox O2 Delivery O2 Flow Rate FiO2 11/03/16 21:09 37.0 73 17 114/59 95 Room Air 10/31/16 09:53 2.00 Intake and Output 11/02/16 11/02/16 11/03/16 Cumulative From/Thru 15:00 23:00 07:00 10/27/16 15:44 - 11/03/16 06:12 Intake Total 800 ml 0 ml 3527 ml Output Total 200 ml 0 ml 500 ml Balance 600 ml 0 ml 3027 ml Intake Oral 375 ml 0 ml 2575 ml IV Total 425 ml 952 ml Output Urine Total 200 ml 0 ml 500 ml # Voids 26 # Bowel Movements 0 0 7 Exam General: Patient remains pleasantly confused. She is oriented to person only. She does recognize her family members. HEENT: Head is atraumatic and normocephalic. Eyes: Pupils are equally round and reactive to light and accommodation. Extraocular muscles are intact. Sclera are white, anicteric. Subconjunctival mucosa is pink. Ears and nose are unremarkable. Oropharynx: There is no mucosal lesions, there is no thrush, there is no pharyngitis. Neck: Is supple, there are no nodes, or masses or tenderness. Chest: Is clearer today to auscultation and percussion. Heart: Rate, rhythm is regular. There is no murmur, rub or gallop. Abdomen: Good bowel sounds are present. Abdomen is soft, nontender, no organomegaly or masses were appreciated. Extremities: Are symmetrical and well perfused. There is minimal edema, there is no cellulitis, no rash. Neurologic: The patient appears pleasantly demented. There is generalized weakness more pronounced on the left side. Psychiatric: Patients mood is calm and shows no sign of agitation. She remains pleasantly confused and oriented only to person. She is able to recognize some family members. Genital: Deferred Rectal: Deferred Lab and Diagnostics Result Diagram: 11/03/16 1120 11/03/16 1120 Microbiology Specimen: [id number] Collected: 10/27/16 Status: ARIELLA Carrion#: [id number] Received: 10/27/16 Source: URINE CC Sp Desc : Subm Dr: Kimani Magaña MD Ordered: URINE CULT Procedure Result Verified Site Microbiology ERICKA CULT URINE Final 10/29/16 Organism 1 ESCHERICHIA COLI U COLONY COUNT/QUANTITY >100,000 CFU/ml Cefazolin-predicts results for the oral agents, cefaclor,cefdinir, cefpodoximen, cefprozil, cefuroximne axetil, cephalexin and loracarbed when used for therapy of uncomplicated UTI's due to E. coli, K. pneumoniae, and Proteus mirabilis. Cefpodoxime, cefdinir and cefuroxime axetil may be tested individually because some isolates may be susceptible to these agents while testing resistant to cefazolin. (CLSI E104-J05 pg 53) 1. ESCHERICHIA COLI M.I.C Interp --------- ------ * AMOXICILLIN/CLAVULATE <=2 S * AMPICILLIN <=2 S * CEFAZOLIN (CEPHALOSPORIN) UTI 4 S * CEFEPIME <=1 S * CEFTRIAXONE <=1 S * CEFUROXIME SODIUM 16 I * CIPROFLOXACIN <=0.25 S * ERTAPENEM <=0.5 S * GENTAMICIN <=1 S * IMIPENEM <=1 S * LEVOFLOXACIN <=0.12 S * NITROFURANTOIN <=16 S * TETRACYCLINE <=1 S * TOBRAMYCIN <=1 S * TRIMETHOPRIM/SULFAMETHOXAZOLE <=20 S X-Rays, CTs and MRIs [facility] Diagnostic [place] [address] Patient Name: MIKI SAENZ I MR#: [id number] [place] [facility] [place]ing Phys: Kimani Magaña MD Date of Service: 10/27/16 07 PROCEDURE: X-RAY CHEST ONE VIEW, PORTABLE ([id number]) INDICATIONS: cough, sob TECHNIQUE: One view of the chest was acquired. COMPARISON: None. FINDINGS: Surgical changes and devices: None. Lungs and pleura: No pneumothorax. Dense left basilar consolidation. Cannot exclude small left pleural effusion. Mediastinum: Mediastinal contours appear normal. Heart size is normal. Bones and chest wall: No suspicious bony lesions. Overlying soft tissues appear unremarkable. IMPRESSION: Dense left basilar pneumonia. Recommend radiographic followup to document resolution and exclude underlying pulmonary nodule Dictated by: Hosea Sheridan M.D. on 10/27/2016 at 8:05 Approved by: Hosea Sheridan M.D. on 10/27/2016 at 8:06 PROCEDURE: US VEINOUS LEG DUPLEX UNILATERAL, LEFT INDICATIONS: swelling LLE ro DVT TECHNIQUE: Real-time imaging, as well as color and pulse Doppler interrogation, were performed of the lower extremity deep veins from the inguinal ligament to the popliteal fossa. COMPARISON: None. FINDINGS: The deep veins are normally compressible, and free of intraluminal thrombus. Color and pulse Doppler demonstrate normal phasic intraluminal flow. There is normal augmentation response to distal compression maneuver. IMPRESSION: No evidence of deep venous thrombosis. Dictated by: Hosea Sheridan M.D. on 10/27/2016 at 13:55 Approved by: Hosea Sheridan M.D. on 10/27/2016 at 13:56 Cardiac Echo Impressions Echocardiogram Report Name: MIKI SAENZ Siva e: 09/08/2016 Height: 66 in Hospital Exam Location: [facility] Weight: 13 3 lb Gender: Female BSA: 1.7 m2 : 1930 Age: 85 yrs BP: 116/62 mmHg Reason For Study: CAD Ordering Physician: HOSPITALIST [facility] Performed By: Oma Farris Referring Physician: Dr. Manny Montana Interpretation Summary Left ventricular systolic function is moderate to severely reduced. Left ventricular ejection fraction is estimated to be 25%. Compared to the prior exam, left ventricular function is significantly decreased. There is a large sized apical, septal, anteroseptal, inferior, and posterior wall motion abnormality with hypokinesis to akinesis of the segments. There are new LV wall motion abnormalities. Assessment of diastolic parameters suggests a pseudonormalization pattern, consistent with elevated filling pressures. The right ventricle grossly appears normal in size with probable normal systolic function. The left atrium is mildly dilated. Right atrial size is normal. There is mild to moderate mitral regurgitation. Compared to the prior echo study, there has been an increase in the severity of mitral regurgitation. There is no other significant valvular heart disease. The aortic root is normal size. Assessment & Plan This is a 86-year-old female with past medical history of dementia, CAD, status post [place], SVT, hypertension, angioplasty and Coronary stents, who presented to the [facility] emergency room as her found it difficult to wake her up and transfer her out of the bed. Patient appeared to be aware of her 's name, mumbling a lot but otherwise fairly nonverbal. Patient was discharged from the hospital recently on lisinopril, Plavix, aspirin , metoprolol but apparently at the time of admission to ED she is only on metoprolol. Apparently her primary care doctor Dr. Montana discontinued all of her medications except for metoprolol 2 weeks prior to admission Her cough was worse, edema was worse and now she could not get up from bed. In the ER chest x-ray showed left pleural effusion and findings consistent with possible left lower lobe pneumonia, white count is normal BNP is elevated at 22, 000 and troponin within normal EKG shows no changes from before. Prior echo performed on August 2016 shows 25% ejection fraction and severe hypokinesis her vital signs were stable Patient was admitted to the hospital for CHF management and possible left lower lobe pneumonia # Acute on chronic systolic heart failure, present at the time of admission. Active and still problematic -- Patient was initially diuresed with IV Lasix, she exhibited SVT on the pvc monitor this afternoon we decided to order further diuresis. Metoprolol dose was increased to 25 mg twice a day. We have increased the dose further to 50 mg by mouth twice a day. Patient's BNP has dropped from approximately 30,000-14,000. We will repeat BNP in a.m. -- The patient was placed on losartan instead of lisinopril. Continue home statin and aspirin, Plavix -- Continue Telemonitoring, and oxygen when necessary -- Daily weights, and accurate ins and outs -- Echocardiogram in August 2016 showed 25 % EF -- We had increased the patient's Lasix 40 mg daily by mouth to 40 mg by mouth twice a day. And once again metoprolol was increased to 50 mg by mouth twice a day - Consulted Dr. Jesus Alberto Calvillo of cardiology and appreciate his input and recommendations. # Possible left lower lobe pneumonia -- We will continue Rocephin day #7 of 10 -- Serial chest x-rays will be needed. -- X-ray of the chest ordered for 10/30/2016 looks worse -- CT scan of the chest showed a large left pleural effusion and pulmonary emboli in the right lung. Therefore, the patient went for a left-sided thoracentesis. Studies are pending. # Pulmonary emboli - Continue with Lovenox bridging therapy. Patient did receive a couple of days of IV heparin for bridging therapy and therefore, patient is essentially on day 3 of 5 of bridging therapy. - Continue Coumadin per pharmacy. Currently her INR is supratherapeutic. In dose will need to be adjusted. - Pharmacy hopefully will be able to give the hospital service recommendation as to what dose the patient may go to the pen[facility] facility on in the next 48 hours. # Urinary tract infection with Escherichia coli sensitive to ceftriaxone -- Rocephin has been started and we will continue, day #7 of 10 # Cough. -- Likely due to CHF -- Tessalon Perles for symptomatic relief -- We have also changed Lisinopril to losartan - Thoracentesis was performed on 11/01/2016 # Pleural effusion - Status post left thoracentesis - This appears transudative. The culture and cytology/pathology are pending Chronic problems: # History of CAD: Continue Aspirin, metoprolol, losartan # History of SVT: Continue metoprolol I had long discussion with patient's Royce and Dr. Jesus Alberto Calvillo prior to knowing the CT scan results. At that time it was decided that the best course of action would be hospice care. However, after receiving the CT angiogram report that revealed pulmonary emboli and a large left pleural effusion after long discussion with the patient's Royce it was decided that the patient would benefit from IV heparin therapy and left thoracentesis which would be palliative and possibly diagnostic.. Patient will be started on Coumadin. This will allow Royce some time to discuss the patient's situation with the rest of the family and then make further determinations. We will plan on further advanced care planning meetings with the patient and the patient's Royce. After having another advanced care plan meeting with the patient' s Royce and the patient's 2 daughters at bedside. It was decided that the patient and her Royce were not ready for hospice care yet and the patient would go to a penitentiary facility for continued treatment until such time the patient and her were ready to take her home with hospice care. Dr. Demarco to follow in a.m. CODE STATUS: DNR/DNI Alternate decision-maker: Disposition: pharmacy services representative will likely need to work on transfer to penitentiary facility once the above problems have been stabilized. As well as inappropriate Coumadin dose to go to the penitentiary facility with. Meanwhile continue bridging therapy with Lovenox. Pain Evaluation: Adequate Pain Control GI Prophylaxis: H2 derek VTE Prophylaxis: Sub-Q Enoxaparin VTE Mechanical Devices: Intermittant Pneumatic CD Resuscitation Status: DNR/DNI:Do Not Resuscitate/Intubate Nate Gonzales MD Nov 03, 2016 23:32
[2016-11-04] VITALS (8 sets, daily range): BP systolic 110–137; BP diastolic 57–77; PULSE 60–74; RESP 20–22; O2SAT 94–98
[2016-11-04] MEDS: Sodium Chloride LOK Flush 10 mL Syringe IVFLUSH SCH ×3 (01:26→17:10)
[2016-11-04 06:25] LABS: INR 2.21 ratio
[2016-11-04] MEDS: Isosorbide Mononitrate 30 mg ER24 Tablet PO SCH (09:40)
[2016-11-04] MEDS: Potassium Chloride 20 mEq SR Tablet PO SCH (09:40)
[2016-11-04] MEDS: cefTRIAXone 2,000 mg/D5W 50 mL IV Minibag Plus IV SCH ×2 (09:40)
[2016-11-04] MEDS: MeTOProlol XL 25 mg ER24 Tablet PO SCH ×2 (09:41→20:57)
--- NOTE | 2016-11-04 11:33 | PCM.PNMED ---
Subjective Date of Service Nov 04, 2016 Subjective Patient was seen at the bedside with hospital Denied any complaints, dysuria, difficulty breathing Patient looked very comfortable on the bed Husbandl stated that patient's LE swelling has significantly decreased for the past few days patient knows her name, but otherwise no insight, very disoriented, cannot tell 's name, this seems her baseline MS per Exam Vital Signs Vital Sign - Last Date Time Temp Pulse Resp B/P Pulse Ox O2 Delivery O2 Flow Rate FiO2 11/04/16 10:34 60 11/04/16 10:20 36.8 22 110/62 94 Room Air 10/31/16 09:53 2.00 Intake and Output 11/03/16 11/03/16 11/04/16 Cumulative From/Thru 15:00 23:00 07:00 10/27/16 15:44 - 11/04/16 06:03 Intake Total 225 ml 3752 ml Output Total 500 ml Balance 225 ml 3252 ml Intake Oral 225 ml 2800 ml IV Total 952 ml Output Urine Total 500 ml # Voids 2 28 # Bowel Movements 3 10 Exam NAD, comfortably laying down on the bed no JVD, MMM, no LAD RRR, nl s1, s2 no mrg CTAB, no w,c S,ND,NT,normoactive BS+ warm, no edema, pulses 2/2 IVs and Medications Medications Reviewed: Medications were reviewed in detail Lab and Diagnostics Result Diagram: 11/03/16 1120 11/04/16812 Microbiology Specimen: [id number] Collected: 10/27/16 Status: COMP Req#: [id number] Received: 10/27/16 Source: URINE CC Sp Desc : Subm Dr: Kimani Magaña MD Ordered: URINE CULT Procedure Result Verified Site Microbiology ERICKA CULT URINE Final 10/29/16 Organism 1 ESCHERICHIA COLI U COLONY COUNT/QUANTITY >100,000 CFU/ml Cefazolin-predicts results for the oral agents, cefaclor,cefdinir, cefpodoximen, cefprozil, cefuroximne axetil, cephalexin and loracarbed when used for therapy of uncomplicated UTI's due to E. coli, K. pneumoniae, and Proteus mirabilis. Cefpodoxime, cefdinir and cefuroxime axetil may be tested individually because some isolates may be susceptible to these agents while testing resistant to cefazolin. (CLSI D173-K90 pg 53) 1. ESCHERICHIA COLI M.I.C Interp --------- ------ * AMOXICILLIN/CLAVULATE <=2 S * AMPICILLIN <=2 S * CEFAZOLIN (CEPHALOSPORIN) UTI 4 S * CEFEPIME <=1 S * CEFTRIAXONE <=1 S * CEFUROXIME SODIUM 16 I * CIPROFLOXACIN <=0.25 S * ERTAPENEM <=0.5 S * GENTAMICIN <=1 S * IMIPENEM <=1 S * LEVOFLOXACIN <=0.12 S * NITROFURANTOIN <=16 S * TETRACYCLINE <=1 S * TOBRAMYCIN <=1 S * TRIMETHOPRIM/SULFAMETHOXAZOLE <=20 S X-Rays, CTs and MRIs [facility] Diagnostic Imaging Department [place], [place] [id number] Patient Name: MIKI SAENZ I MR#: [id number] Location: [facility] Ordering Phys: Kimani Magaña MD Date of Service: 10/27/16 0708 PROCEDURE: X-RAY CHEST ONE VIEW, PORTABLE ([id number]) INDICATIONS: cough, sob TECHNIQUE: One view of the chest was acquired. COMPARISON: None. FINDINGS: Surgical changes and devices: None. Lungs and pleura: No pneumothorax. Dense left basilar consolidation. Cannot exclude small left pleural effusion. Mediastinum: Mediastinal contours appear normal. Heart size is normal. Bones and chest wall: No suspicious bony lesions. Overlying soft tissues appear unremarkable. IMPRESSION: Dense left basilar pneumonia. Recommend radiographic followup to document resolution and exclude underlying pulmonary nodule Dictated by: Hosea Sheridan M.D. on 10/27/2016 at 8:05 Approved by: Hosea Sheridan M.D. on 10/27/2016 at 8:06 PROCEDURE: US VEINOUS LEG DUPLEX UNILATERAL, LEFT INDICATIONS: swelling LLE ro DVT TECHNIQUE: Real-time imaging, as well as color and pulse Doppler interrogation, were performed of the lower extremity deep veins from the inguinal ligament to the popliteal fossa. COMPARISON: None. FINDINGS: The deep veins are normally compressible, and free of intraluminal thrombus. Color and pulse Doppler demonstrate normal phasic intraluminal flow. There is normal augmentation response to distal compression maneuver. IMPRESSION: No evidence of deep venous thrombosis. Dictated by: Hosea Sheridan M.D. on 10/27/2016 at 13:55 Approved by: Hosea Sheridan M.D. on 10/27/2016 at 13:56 Cardiac Echo Impressions Echocardiogram Report Name: MIKI SAENZ Siva e: 09/08/2016 Height: 66 in Hospital Exam Location: [facility] Weight: 13 3 lb Gender: Female BSA: 1.7 m2 : 1930 Age: 85 yrs BP: 116/62 mmHg Reason For Study: CAD Ordering Physician: HOSPITALIST [facility] Performed By: Oma Farris Referring Physician: Dr. Manny Montana Interpretation Summary Left ventricular systolic function is moderate to severely reduced. Left ventricular ejection fraction is estimated to be 25%. Compared to the prior exam, left ventricular function is significantly decreased. There is a large sized apical, septal, anteroseptal, inferior, and posterior wall motion abnormality with hypokinesis to akinesis of the segments. There are new LV wall motion abnormalities. Assessment of diastolic parameters suggests a pseudonormalization pattern, consistent with elevated filling pressures. The right ventricle grossly appears normal in size with probable normal systolic function. The left atrium is mildly dilated. Right atrial size is normal. There is mild to moderate mitral regurgitation. Compared to the prior echo study, there has been an increase in the severity of mitral regurgitation. There is no other significant valvular heart disease. The aortic root is normal size. Assessment & Plan This is a 86-year-old female with past medical history of dementia, CAD, status post [place], SVT, hypertension, angioplasty and Coronary stents, who presented to the [facility] emergency room as her found it difficult to wake her up and transfer her out of the bed. Patient appeared to be aware of her 's name, mumbling a lot but otherwise fairly nonverbal. Patient was discharged from the hospital recently on lisinopril, Plavix, aspirin , metoprolol but apparently at the time of admission to ED she is only on metoprolol. Apparently her primary care doctor Dr. Montana discontinued all of her medications except for metoprolol 2 weeks prior to admission Her cough was worse, edema was worse and now she could not get up from bed. In the ER chest x-ray showed left pleural effusion and findings consistent with possible left lower lobe pneumonia, white count is normal BNP is elevated at 22, 000 and troponin within normal EKG shows no changes from before. Prior echo performed on August 2016 shows 25% ejection fraction and severe hypokinesis her vital signs were stable Patient was admitted to the hospital for CHF management and possible left lower lobe pneumonia acute, active # Acute on chronic systolic heart failure, present at the time of admission. -- Patient was initially diuresed with IV Lasix, she exhibited SVT on the wood engraver this afternoon we decided to order further diuresis. Metoprolol dose was increased to 25 mg twice a day. We have increased the dose further to 50 mg by mouth twice a day. patient seems clinically euvolemic, will change to daily tomorrow. -- The patient was placed on losartan instead of lisinopril. Continue home statin and aspirin, Plavix -- Continue Telemonitoring, and oxygen when necessary -- Daily weights, and accurate ins and outs -- Echocardiogram in August 2016 showed 25 % EF - Consulted Dr. Jesus Alberto Calvillo of cardiology, recommended supportive tx. no invasive study. # Possible left lower lobe pneumonia, left pleural effusion, POA, based on CXR, patient was started on Rocephin for 7D, s/p throacentesis on 11/01 due to larger left pleural effusion which showed barely exudatives(protein+), cultures ngtd. effusion Likely related to PE/CHF -will stop abx today given no respiratory sx, pleural fluid is not parapneumonic , -Tessalon Perles for symptomatic relief -pending cytology, final cultures of pleural fluid # Pulmonary emboli, POA, CTA 10/31 showed subsegmental PE, no evidence of Rt heart strains, briged with LMWH, Coumadin -INR2.21, successfully bridged, continue coumadin dosing per pharmacy # Urinary tract infection with Escherichia coli sensitive to ceftriaxone, s/p Rocephin for 7D, Chronic problems: # History of CAD: Continue Aspirin, metoprolol, losartan # History of SVT: Continue metoprolol Disposition: SNF possibly tomorrow, not ready for hospice per discussion with family per dvt ppx: systemic AC diet: dysphagia DNR/DNI Alternate decision-maker: GI Prophylaxis: H2 derek VTE Prophylaxis: Sub-Q Enoxaparin VTE Mechanical Devices: Intermittant Pneumatic CD Resuscitation Status: DNR/DNI:Do Not Resuscitate/Intubate Time spent 35 minutes Nehemias Demarco MD Nov 04, 2016 11:24
--- NOTE | 2016-11-04 11:34 | PCM.PHAPRO ---
Progress WARFARIN DOSING PER PHARMACY (day) 1 2 3 4 5 [facility] mb DFF AK AK DFF Date 13-Oct 14-Oct 15-Oct 16-Oct 17-Oct INR 1.14 1.26 2.26 3.60 2.21 INR change 0.12 1 1.34 -1.39 Warf Dose 5 MG 5 MG HOLD HOLD 2.5 A/P -Therapeutic INR following 2 days of non-admin due to rapidly uptrending INR. -Will redose at 2.5mg tonight. -Can stop Lovenox bridge after today as it will be 5 days. Dann Pennington, PharmD Dann Pennington Nov 04, 2016 11:34
--- NOTE | 2016-11-04 11:51 | NUR ---
Left message for Catie Calle CM at [facility], let her know patient has potential for discharge tomorrow and we need her to review for auth/denial for [facility]. Addendum: 11/04/16 at 1401 by RUBI COSTA CM [facility] is issuing denial for transfer to [facility]. Updated PERFORMING ARTS ROAD MANAGER
--- NOTE | 2016-11-04 12:41 | NUR ---
Social Work: Readiness for d/c Data: Pt is on day 8 of hospitalization. EMR reviewed, pt discussed in rounds. states pt likely to d/c tomorrow and will require anticoagulant at discharge. SW informed UR Specialist of this additional nursing need to provide when requesting insurance authorization. SW attempted to contact Royce Quintero [phone], not in room, to update him and check in re: back up plan should insurance not authorize SNF, and to follow up on meeting with hospice an half-way planning. Left voicemail SW will continue to follow. Assessment: Pt with dementia who would benefit from SNF. Plan: When pt is medically stable for d/c, insurance authorization needs to be pursued. If they approve, pt will go to [facility] as they are contracted with pt's insurance. If they deny, pt will either go to [facility] private pay, or go home with wither , hospice, or private pay caregiving, and pt's spouse likely to pursue NURSING HOME. SW to follow. ELAINE Elaine
--- NOTE | 2016-11-04 16:52 | NUR ---
ERASTO spoke to pt's Royce who stated he has been informed by [employer] that a SNF will not be covered, and he is now in the process of appealing that decision. SW stated that per MD the pt will likely discharge tomorrow and cannot stay in the hospital during the appeal process. appeared to understand and stated that he would like to pt [facility] and will pay out of pocket while the appeal process with [facility] proceeds. SW communicated this to UR Specialist who agreed to send referral to [facility], SW will continue to follow. ELAINE Elaine
[2016-11-05] VITALS (7 sets, daily range): BP systolic 99–133; BP diastolic 66–89; PULSE 61–75; RESP 18–20; O2SAT 92–97
[2016-11-05] MEDS: Sodium Chloride LOK Flush 10 mL Syringe IVFLUSH SCH ×4 (00:30→20:54)
--- NOTE | 2016-11-05 05:30 | NUR ---
Noc activity Pt does not appear to had an episode of chest pain, sob, n/v and abd discomfort. Q2 turns provided. HS meds administered as scheduled. VSS and has been afebrile overnight.
[2016-11-05 07:09] LABS: INR 2.18 ratio
[2016-11-05 07:38] LABS: BASOPHILS % (AUTO) 0.5 % (0-3); EOSINOPHILS % (AUTO) 2.7 % (0-5); MONOCYTES % (AUTO) 15.7 % (4-12); Mean Corpuscular Hemoglobin 32.3 pg (27.0-35.0); Platelet Count 199 bil/L (150-400)
[2016-11-05 07:48] LABS: Magnesium 2.4 mg/dL (1.6-2.6); Phosphorus 3.9 mg/dL (2.5-4.9)
--- NOTE | 2016-11-05 08:42 | NUR ---
Called [facility] and left message for admitting nurse, faxed all clinicals to them at [phone]. Updated TOOLROOM HELPER
[2016-11-05] MEDS: Potassium Chloride 20 mEq SR Tablet PO SCH (09:10)
[2016-11-05] MEDS: Isosorbide Mononitrate 30 mg ER24 Tablet PO SCH (09:11)
--- NOTE | 2016-11-05 09:20 | NUR ---
MARIBEL signed by . ELAINE Elaine
[2016-11-05] MEDS: cefTRIAXone 2,000 mg/D5W 50 mL IV Minibag Plus IV SCH ×2 (09:21)
[2016-11-05] MEDS: MeTOProlol XL 25 mg ER24 Tablet PO SCH ×2 (10:10→20:54)
--- NOTE | 2016-11-05 10:17 | NUR ---
Spoke with Catie COX at [facility] and was checking to see if there was determination on appeal. Catie said they let the know that he did not need paperwork for DPOA due to patient's dementia. They explained to the that he is surrogate decision maker and he would not need proof of DPOA. There is also no determination yet on his appeal. [facility] is going to contact as well and then they most likely will need to come and do an onsite. Updated PAPETERIE TABLE ASSEMBLER
--- NOTE | 2016-11-05 10:23 | NUR ---
MARIBEL: Patient has dementia at base and is decision maker, MAINTENANCE ELECTRICIAN is following up regarding discharge planning and will have him sign MARIBEL>
[2016-11-05] MEDS ORDERED: WARF2.5T PO (10:26)
[2016-11-05] MEDS ORDERED: CLOP75TA28 PO (10:26)
[2016-11-05] MEDS ORDERED: ISOS30TA4 PO (10:26)
[2016-11-05] MEDS ORDERED: METO25TA99 PO (10:26)
[2016-11-05] MEDS ORDERED: LOSA25TA2 PO (10:26)
--- NOTE | 2016-11-05 10:30 | PCM.DIMED ---
Discharge Instructions Date of Service Nov 05, 2016 Dates of Hospitalization Oct 27, 2016 at 10:08 Discharge Diagnosis Discharge Diagnosis acute on chronic systolic heart failure Possible left lower lobe pneumonia Pulmonary emboli Urinary tract infection with Escherichia coli Medication Instructions Please note that there are several medicines given for weakened heart conditions : continue these medicine at home Imdur 30mg daily Losartan 25mg daily metoprolol ER 50mg twice a day clopidogrel 75mg daily Coumadin as directed, blood thinner given your blood clots in your lungs. Diet Low fat, Low Sodium, Heart Healthy Activity No restrictions Call your provider Shortness of breath, Chest pain Patient Instructions You were hospitalized with multiple coniditions such as heart failure, Pneumonia , urinary tract infection. You were started new regimen for this coniditions, tolerated well. Please note that you need to follow up with your primary doctor to adjust medicines. Please note that your risks of bleeding is significantly high with Coumadin as you are taking aspirin, plavix. If you notice any signs of bloody stools, black stools, Please discontinued Coumadin first and hold aspirin and plavix, return to Emergency Room urgently Follow-up plan Please follow up with your doctor in one week. Follow-up Provider: Manny Montana MD Follow-up with PCP in: 1 week Nehemias Demarco MD Nov 05, 2016 10:30
[2016-11-05] MEDS ORDERED: FURO40TA4 PO (10:39)
--- NOTE | 2016-11-05 12:44 | NUR ---
SW spoke to pt's and informed him that [facility] will come out to assess the pt today. The plan is still to d/c the pt today. appeared to understand and confirmed that he will pay out of pocket for [facility] if [facility] are able to take the pt. ELAINE Elaine
--- NOTE | 2016-11-05 15:16 | NUR ---
Spoke with [facility] real estate executive assistant Stefano and they can accept patient first thing 11/05/16, today they have admits in process and can not take another. Private Pay cost for private room is $317.00 This is the preference and Stefano knows this as well. Updated COMMERCIAL TIRE SERVICE TECHNICIAN and UR RN
--- NOTE | 2016-11-05 15:57 | NUR ---
ERASTO met with pt's to inform him that [facility] will not be able to accept the pt. was agreeable to paying out of pocket for [facility] SNF instead. ERASTO conveyed this info to UR specialist who reported that [facility] wont have a bed until tomorrow. agreed to pad pt for additional night. Pt to discharge to [facility] tomorrow. All updated and agreeable to plan. ELAINE Elaine
--- NOTE | 2016-11-05 16:53 | PCM.PNMED ---
Subjective Date of Service Nov 05, 2016 Subjective Patient denied any complaints Exam Vital Signs Vital Sign - Last Date Time Temp Pulse Resp B/P Pulse Ox O2 Delivery O2 Flow Rate FiO2 11/05/16 14:16 37.4 75 20 128/85 95 Room Air 10/31/16 09:53 2.00 Intake and Output 11/04/16 11/04/16 11/05/16 Cumulative From/Thru 15:00 23:00 07:00 10/27/16 15:44 - 11/05/16 06:38 Intake Total 0 ml 400 ml 0 ml 4152 ml Output Total 500 ml Balance 0 ml 400 ml 0 ml 3652 ml Intake Oral 0 ml 400 ml 0 ml 3200 ml IV Total 952 ml Output Urine Total 500 ml # Voids 1 3 2 34 # Bowel Movements 1 2 0 13 Exam NAD, comfortably laying down on the bed no JVD, MMM, no LAD RRR, nl s1, s2 no mrg CTAB, no w,c S,ND,NT,normoactive BS+ warm, no edema, pulses 2/2 IVs and Medications Medications Reviewed: Medications were reviewed in detail Lab and Diagnostics Result Diagram: 11/05/1650 11/05/1650 Microbiology Specimen: [id number] Collected: 10/27/16 Status: COMP Req#: [id number] Received: 10/27/16 Source: URINE CC Sp Desc : Subm Dr: Kimani Magaña MD Ordered: URINE CULT Procedure Result Verified Site Microbiology ERICKA CULT URINE Final 10/29/16-0817 Organism 1 ESCHERICHIA COLI U COLONY COUNT/QUANTITY >100,000 CFU/ml Cefazolin-predicts results for the oral agents, cefaclor,cefdinir, cefpodoximen, cefprozil, cefuroximne axetil, cephalexin and loracarbed when used for therapy of uncomplicated UTI's due to E. coli, K. pneumoniae, and Proteus mirabilis. Cefpodoxime, cefdinir and cefuroxime axetil may be tested individually because some isolates may be susceptible to these agents while testing resistant to cefazolin. (CLSI A355-S51 pg 53) 1. ESCHERICHIA COLI M.I.C Interp --------- ------ * AMOXICILLIN/CLAVULATE <=2 S * AMPICILLIN <=2 S * CEFAZOLIN (CEPHALOSPORIN) UTI 4 S * CEFEPIME <=1 S * CEFTRIAXONE <=1 S * CEFUROXIME SODIUM 16 I * CIPROFLOXACIN <=0.25 S * ERTAPENEM <=0.5 S * GENTAMICIN <=1 S * IMIPENEM <=1 S * LEVOFLOXACIN <=0.12 S * NITROFURANTOIN <=16 S * TETRACYCLINE <=1 S * TOBRAMYCIN <=1 S * TRIMETHOPRIM/SULFAMETHOXAZOLE <=20 S X-Rays, CTs and MRIs [facility] Diagnostic [place] [address] Patient Name: MIKI SAENZ I MR#: [id number] Location: [facility] [place] Ordering Phys: Kimani Magaña MD Date of Service: 10/27/16 0708 PROCEDURE: X-RAY CHEST ONE VIEW, PORTABLE ([id number]) INDICATIONS: cough, sob TECHNIQUE: One view of the chest was acquired. COMPARISON: None. FINDINGS: Surgical changes and devices: None. Lungs and pleura: No pneumothorax. Dense left basilar consolidation. Cannot exclude small left pleural effusion. Mediastinum: Mediastinal contours appear normal. Heart size is normal. Bones and chest wall: No suspicious bony lesions. Overlying soft tissues appear unremarkable. IMPRESSION: Dense left basilar pneumonia. Recommend radiographic followup to document resolution and exclude underlying pulmonary nodule Dictated by: Hosea Sheridan M.D. on 10/27/2016 at 8:05 Approved by: Hosea Sheridan M.D. on 10/27/2016 at 8:06 PROCEDURE: US VEINOUS LEG DUPLEX UNILATERAL, LEFT INDICATIONS: swelling LLE ro DVT TECHNIQUE: Real-time imaging, as well as color and pulse Doppler interrogation, were performed of the lower extremity deep veins from the inguinal ligament to the popliteal fossa. COMPARISON: None. FINDINGS: The deep veins are normally compressible, and free of intraluminal thrombus. Color and pulse Doppler demonstrate normal phasic intraluminal flow. There is normal augmentation response to distal compression maneuver. IMPRESSION: No evidence of deep venous thrombosis. Dictated by: Hosea Sheridan M.D. on 10/27/2016 at 13:55 Approved by: Hosea Sheridan M.D. on 10/27/2016 at 13:56 Cardiac Echo Impressions Echocardiogram Report Name: MIKI SAENZ Siva e: 09/08/2016 Height: 66 in Hospital Exam Location: [facility] Weight: 13 3 lb Gender: Female BSA: 1.7 m2 : 1930 Age: 85 yrs BP: 116/62 mmHg Reason For Study: CAD Ordering Physician: HOSPITALIST [facility] Performed By: Oma Farris Referring Physician: Dr. Manny Montana Interpretation Summary Left ventricular systolic function is moderate to severely reduced. Left ventricular ejection fraction is estimated to be 25%. Compared to the prior exam, left ventricular function is significantly decreased. There is a large sized apical, septal, anteroseptal, inferior, and posterior wall motion abnormality with hypokinesis to akinesis of the segments. There are new LV wall motion abnormalities. Assessment of diastolic parameters suggests a pseudonormalization pattern, consistent with elevated filling pressures. The right ventricle grossly appears normal in size with probable normal systolic function. The left atrium is mildly dilated. Right atrial size is normal. There is mild to moderate mitral regurgitation. Compared to the prior echo study, there has been an increase in the severity of mitral regurgitation. There is no other significant valvular heart disease. The aortic root is normal size. Assessment & Plan This is a 86-year-old female with past medical history of dementia, CAD, status post [place], SVT, hypertension, angioplasty and Coronary stents, who presented to the [facility] emergency room as her found it difficult to wake her up and transfer her out of the bed. Patient appeared to be aware of her 's name, mumbling a lot but otherwise fairly nonverbal. Patient was discharged from the hospital recently on lisinopril, Plavix, aspirin , metoprolol but apparently at the time of admission to ED she is only on metoprolol. Apparently her primary care doctor Dr. Montana discontinued all of her medications except for metoprolol 2 weeks prior to admission Her cough was worse, edema was worse and now she could not get up from bed. In the ER chest x-ray showed left pleural effusion and findings consistent with possible left lower lobe pneumonia, white count is normal BNP is elevated at 22, 000 and troponin within normal EKG shows no changes from before. Prior echo performed on August 2016 shows 25% ejection fraction and severe hypokinesis her vital signs were stable Patient was admitted to the hospital for CHF management and possible left lower lobe pneumonia acute, active # Acute on chronic systolic heart failure, present at the time of admission. -- Patient was initially diuresed with IV Lasix, she exhibited SVT on the shoer this afternoon we decided to order further diuresis. Metoprolol dose was increased to 25 mg twice a day. We have increased the dose further to 50 mg by mouth twice a day. patient seems clinically euvolemic, changed to daily prn tomorrow. -- The patient was placed on losartan instead of lisinopril. Continue home statin and aspirin, Plavix -- Continue Telemonitoring, and oxygen when necessary -- Daily weights, and accurate ins and outs -- Echocardiogram in August 2016 showed 25 % EF - Consulted Dr. Jesus Alberto Calvillo of cardiology, recommended supportive tx. no invasive study. # Possible left lower lobe pneumonia, left pleural effusion, POA, based on CXR, patient was started on Rocephin for 7D, s/p throacentesis on 4/14 due to larger left pleural effusion which showed barely exudatives(protein+), cultures ngtd. effusion Likely related to PE/CHF -will stop abx today given no respiratory sx, pleural fluid is not parapneumonic , -Tessalon Perles for symptomatic relief -pending cytology, final cultures of pleural fluid # Pulmonary emboli, POA, CTA 10/31 showed subsegmental PE, no evidence of Rt heart strains, briged with LMWH, Coumadin -INR2.21, successfully bridged, continue coumadin dosing per pharmacy # Urinary tract infection with Escherichia coli sensitive to ceftriaxone, s/p Rocephin for 7D, Chronic problems: # History of CAD: Continue Aspirin, metoprolol, losartan # History of SVT: Continue metoprolol Disposition: SNF possibly tomorrow, not ready for hospice per discussion with family per dvt ppx: systemic AC diet: dysphagia DNR/DNI Alternate decision-maker: GI Prophylaxis: H2 derek VTE Prophylaxis: Sub-Q Enoxaparin VTE Mechanical Devices: Intermittant Pneumatic CD Resuscitation Status: DNR/DNI:Do Not Resuscitate/Intubate Time spent 35min Nehemias Demarco MD Nov 05, 2016 16:51
[2016-11-06 00:45] VITALS: PULSE 57
[2016-11-06 01:33] VITALS: BP 120/69; PULSE 60; RESP 14; O2SAT 97
--- NOTE | 2016-11-06 04:27 | NUR ---
NOC: tolerating HTL, fluids offered and accepted thru the night. no s/sx of aspiration. plan to d/c to [facility] mv today.
[2016-11-06 04:43] VITALS: BP 118/74; PULSE 72; RESP 18; O2SAT 96
[2016-11-06] MEDS: Isosorbide Mononitrate 30 mg ER24 Tablet PO SCH (08:47)
[2016-11-06] MEDS: Potassium Chloride 20 mEq SR Tablet PO SCH (08:47)
[2016-11-06] MEDS: Sodium Chloride LOK Flush 10 mL Syringe IVFLUSH SCH (08:48)
--- NOTE | 2016-11-06 08:51 | NUR ---
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 Faxed orders and placed copy in chart. Updated TOE FORMER STITCHDOWNS and asked her to update RN
[2016-11-06] MEDS: MeTOProlol XL 25 mg ER24 Tablet PO SCH (08:54)
[2016-11-06 09:36] VITALS: BP 98/52; PULSE 64; RESP 18; O2SAT 98
[2016-11-06 10:10] LABS: INR 2.53 ratio
--- NOTE | 2016-11-06 10:57 | NUR ---
Discharge Pt d/c to [facility] at 1050 via and staff from receiving facility. Pt denied pain. IV d/c prior to leaving. All personal belongings left with pt and spouse. Family denied having questions. Report called to nurse Machado.
--- NOTE | 2016-11-06 13:31 | PCM.DC.MED ---
Discharge Summary Date of Service Nov 06, 2016 Dates of Hospitalization Date of Hospital Admission Oct 27, 2016 at 10:08 Date of Discharge: Nov 06, 2016 Providers: Admitting Physician: Halley Garrison DO Primary Care Physician: Manny Montana MD Attending Physician: Halley Garrison DO Diagnosis at Time of Discharge Diagnosis at Time of Discharge acute problems, acute on chronic systolic heart failure Possible left lower lobe pneumonia Pulmonary emboli Urinary tract infection with Escherichia coli Chronic problems: # History of CAD # History of SVT Consultations Cardiology Procedures XRay, CTs & MRIs [facility] [place] [address] Patient Name: MIKI SAENZ I MR#: [id number] Location: [facility] Ordering Phys: Kimani Magaña MD Date of Service: 10/27/16 0708 PROCEDURE: X-RAY CHEST ONE VIEW, PORTABLE ([id number]) INDICATIONS: cough, sob TECHNIQUE: One view of the chest was acquired. COMPARISON: None. FINDINGS: Surgical changes and devices: None. Lungs and pleura: No pneumothorax. Dense left basilar consolidation. Cannot exclude small left pleural effusion. Mediastinum: Mediastinal contours appear normal. Heart size is normal. Bones and chest wall: No suspicious bony lesions. Overlying soft tissues appear unremarkable. IMPRESSION: Dense left basilar pneumonia. Recommend radiographic followup to document resolution and exclude underlying pulmonary nodule Dictated by: Hosea Sheridan M.D. on 10/27/2016 at 8:05 Approved by: Hosea Sheridan M.D. on 10/27/2016 at 8:06 PROCEDURE: US VEINOUS LEG DUPLEX UNILATERAL, LEFT INDICATIONS: swelling LLE ro DVT TECHNIQUE: Real-time imaging, as well as color and pulse Doppler interrogation, were performed of the lower extremity deep veins from the inguinal ligament to the popliteal fossa. COMPARISON: None. FINDINGS: The deep veins are normally compressible, and free of intraluminal thrombus. Color and pulse Doppler demonstrate normal phasic intraluminal flow. There is normal augmentation response to distal compression maneuver. IMPRESSION: No evidence of deep venous thrombosis. Dictated by: Hosea Sheridan M.D. on 10/27/2016 at 13:55 Approved by: Hosea Sheridan M.D. on 10/27/2016 at 13:56 Cardiac Echo Impression Echocardiogram Report Name: MIKI SAENZ IStudy Siva e: 09/08/2016 Height: 66 in Hospital Exam Location: [facility] Weight: 13 3 lb Gender: Female BSA: 1.7 m2 : 1930 Age: 85 yrs BP: 116/62 mmHg Reason For Study: CAD Ordering Physician: HOSPITALIST [facility] Performed By: Oma Farris Referring Physician: Dr. Manny Montana Interpretation Summary Left ventricular systolic function is moderate to severely reduced. Left ventricular ejection fraction is estimated to be 25%. Compared to the prior exam, left ventricular function is significantly decreased. There is a large sized apical, septal, anteroseptal, inferior, and posterior wall motion abnormality with hypokinesis to akinesis of the segments. There are new LV wall motion abnormalities. Assessment of diastolic parameters suggests a pseudonormalization pattern, consistent with elevated filling pressures. The right ventricle grossly appears normal in size with probable normal systolic function. The left atrium is mildly dilated. Right atrial size is normal. There is mild to moderate mitral regurgitation. Compared to the prior echo study, there has been an increase in the severity of mitral regurgitation. There is no other significant valvular heart disease. The aortic root is normal size. Brief History HPI obtained by on 10/27 This is a 86-year-old female with past medical history of dementia CAD status post AL, SVT, hypertension, angioplasty and Coronary stents is presenting to the emergency room as her found her to be for him to wake her up and transfer her out of the bed. Patient appears to be aware of her 's name, mumbling a lot but otherwise fairly nonverbal. She kept taking off a mask that Staff put on her for her cough off. Patient was discharged from the hospital recently on lisinopril, Plavix, aspirin , metoprolol but apparently at the time of admission to ED she is only on metoprolol. Her cough is worse, edema is worse now she cannot get up from bed. In the ER chest x-ray showed left pleural effusion questionable left fascicular pneumonia, white count is normal BNP is elevated at 22,000 and troponin within normal EKG shows no changes from before. Prior echo performed on August 2016 shows 25% ejection fraction and severe hypokinesis her vital signs were stable states that patient's PCP, Dr. Montana, informed them that current symptoms can be called by Lisinopril, and discontinued all medications except Metoprolol two weeks ago. Patient lives with and is seen weekly by home health. Patient is admitted to the hospital or CHF management and possible left versus home palliative care. Hospital Course This is a 86-year-old female with past medical history of dementia, CAD, status post AL, SVT, hypertension, angioplasty and Coronary stents, who presented to the [facility] emergency room as her found it difficult to wake her up and transfer her out of the bed. Patient appeared to be aware of her 's name, mumbling a lot but otherwise fairly nonverbal. Patient was discharged from the hospital recently on lisinopril, Plavix, aspirin , metoprolol but apparently at the time of admission to ED she is only on metoprolol. Apparently her primary care doctor Dr. Montana discontinued all of her medications except for metoprolol 2 weeks prior to admission Her cough was worse, edema was worse and now she could not get up from bed. In the ER chest x-ray showed left pleural effusion and findings consistent with possible left lower lobe pneumonia, white count is normal BNP is elevated at 22, 000 and troponin within normal EKG shows no changes from before. Prior echo performed on August 2016 shows 25% ejection fraction and severe hypokinesis her vital signs were stable Patient was admitted to the hospital for CHF management and possible left lower lobe pneumonia acute problems, # Acute on chronic systolic heart failure, present at the time of admission. Echocardiogram in August 2016 showed 25 % EF, Patient was initially diuresed with IV Lasix, she exhibited SVT on the telemetry but no other ventricular arrhythmias, Lasix was continued with 50mg bid, reached euvolemic status, Metoprolol dose was increased to 25 mg twice a day. As per recommendation earlier, lasix dosing will be continued on prn basis. patient was continued on home statin and aspirin, Plavix as well. # Possible left lower lobe pneumonia, left pleural effusion, POA, based on CXR, patient was started on Rocephin for 7D, s/p throacentesis on 11/01 due to larger left pleural effusion which showed barely exudatives(protein+), cultures ngtd. effusion Likely related to PE/CHF. Rocephin was stopped, patient remained clinically stable on d/c. # Pulmonary emboli, POA, CTA 10/31 showed subsegmental PE, no evidence of Rt heart strains, patient was given LMWH then bridged with Coumadin, Given risks of bleeding with DAPT tx, Family was strongly encouraged to monitor her symptoms and signs of bleeding, recommended to stop if any signs of bleeding noticed. INR was in therapeutic range upon d/c. # Urinary tract infection with Escherichia coli sensitive to ceftriaxone, received Rocephin for 7D, Chronic problems: # History of CAD: Continue Aspirin, metoprolol, losartan # History of SVT: Continue metoprolol Exam Vital Signs (Last) Date Time Temp Pulse Resp B/P Pulse Ox O2 Delivery O2 Flow Rate FiO2 11/06/16 09:36 36.6 64 18 98/52 98 Room Air 10/31/16 09:53 2.00 Exam NAD, comfortably laying down on the bed, AAOx1 no JVD, MMM, no LAD RRR, nl s1, s2 no mrg CTAB, no w,c S,ND,NT,normoactive BS+ warm, no edema, pulses 2/2 Test 10/27/16 07:37 10/27/16 09:13 11/01/16 05:30 11/01/16 10:30 Lactic Acid Level 1.5mmol/L (0.4-2.0) Procalcitonin 0.07ng/mL (0.00-0.08) Urine Color Yellow (YELLOW) Urine Appearance Hazy (CLEAR,HAZY) Urine pH 5.0 (5.0-8.0) Urine Specific [place] 1.016 (1.003-1.035) Urine Protein Negativemg/dL (NEG,TRACE) Urine Glucose (UA) Negativemg/dL (NEGATIVE) Urine Ketones Negativemg/dL (NEGATIVE) Urine Occult Blood Negative (NEGATIVE) Urine Nitrite Negative (NEGATIVE) Urine Bilirubin Negative (NEGATIVE) Urine Urobilinogen Normalmg/dL (NORMAL) Urine Leukocyte Esterase Moderate (NEGATIVE) Urine RBC 0-2/hpf (0-2) Urine WBC >50/hpf (0-5) Urine Epithelial Cells Few/hpf (NONE-MOD) Urine Crystals None seen (NONE SEEN) Urine Bacteria Many/hpf (NONE-FEW) Urine Hyaline Casts None/lpf (NONE) Urine Granular Casts None seen (NONE SEEN) Urine Waxy Casts None seen (NONE SEEN) Urine Red Blood Cell Casts None seen (NONE SEEN) Urine White Blood Cell Casts None seen (NONE SEEN) Urine Mucus None seen (None Seen) Urine Trichomonas None seen (NONE SEEN) Urine Yeast None (NONE SEEN) Urinalysis Comment None Urine Culture Reflexed Indicated Lactate Dehydrogenase 321U/L (100-190) Body Fluid Source Pleural fluid Body Fluid Color Yellow (Clear) Body Fluid Appearance Clear Body Fluid pH 7.5 (Not Estab.) Body Fluid WBC 395/mm3 Body Fluid RBC 445/mm3 Body Fluid Polynuclear WBCs 40% Body Fluid Lymphocytes 40% Body Fluid Monocytes 20% Body Fluid Eosinophils 0% Body Fluid Basophils 0% Body Fluid Lactate Dehydrogenase 155U/L Body Fluid Comment Pleural Fluid Total Protein 3.7g/dL Pleural Fluid Glucose 135mg/dL Test 11/02/16 05:57 11/03/16 06:55 11/04/16 05:35 11/05/16 05:50 Troponin T 0.024ug/L (0.0-0.011) Activated Partial Thromboplast Time 43.0sec (22.8-33.0) Pro-B-Type Natriuretic Peptide 45743is/mL (0-738) White Blood Count 6.6th/mm3 (3.8-10.1) Red Blood Count 4.00mil/mm3 (3.90-5.20) Hemoglobin 12.9g/dL (12.0-15.6) Hematocrit 40.4% (35.0-46.0) Mean Corpuscular Volume 101.0fL (81-100) Mean Corpuscular Hemoglobin 32.3pg (27.0-35.0) Mean Corpuscular Hemoglobin Concent 31.9% (32.0-37.0) Red Cell Distribution Width 13.6% (12.3-15.4) Platelet Count 199bil/L (150-400) Neutrophils (%) (Auto) 68.0% (40-74) Lymphocytes (%) (Auto) 12.3% (14-46) Monocytes (%) (Auto) 15.7% (4-12) Eosinophils (%) (Auto) 2.7% (0-5) Basophils (%) (Auto) 0.5% (0-3) Sodium Level 143mEq/L (134-144) Potassium Level 4.4mEq/L (3.5-5.2) Chloride Level 104mEq/L (97-108) Carbon Dioxide Level 20mmol/L (18-29) Blood Urea Nitrogen 27mg/dL (8-27) Creatinine 0.99mg/dL (0.57-1.00) Estimat Glomerular Filtration Rate 77mL/min (>59) Glucose Level 100mg/dL (60-99) Calcium Level 9.2mg/dL (8.5-10.1) Phosphorus Level 3.9mg/dL (2.5-4.9) Magnesium Level 2.4mg/dL (1.6-2.6) Total Bilirubin 0.3mg/dL (0.0-1.2) Aspartate Amino Transf (AST/SGOT) 46U/L (0-50) Alanine Aminotransferase (ALT/SGPT) 42U/L (0-32) Alkaline Phosphatase 63U/L (25-165) Total Protein 6.3g/dL (6.4-8.4) Albumin 3.2g/dL (3.4-5.0) Test 11/06/16 09:49 Prothrombin Time 27.6sec (8.1-12.5) Prothromb Time International Ratio 2.53ratio Microbiology Results Specimen: [id number] Collected: 10/27/16 Status: COMP Req#: [id number] Received: 10/27/16 Source: URINE CC Sp Desc : Subm Dr: Kimani Magaña MD Ordered: URINE CULT Procedure Result Verified Site Microbiology ERICKA CULT URINE Final 10/29/16-816 Organism 1 ESCHERICHIA COLI U COLONY COUNT/QUANTITY >100,000 CFU/ml Cefazolin-predicts results for the oral agents, cefaclor,cefdinir, cefpodoximen, cefprozil, cefuroximne axetil, cephalexin and loracarbed when used for therapy of uncomplicated UTI's due to E. coli, K. pneumoniae, and Proteus mirabilis. Cefpodoxime, cefdinir and cefuroxime axetil may be tested individually because some isolates may be susceptible to these agents while testing resistant to cefazolin. (CLSI B696-V95 pg 53) 1. ESCHERICHIA COLI M.I.C Interp --------- ------ * AMOXICILLIN/CLAVULATE <=2 S * AMPICILLIN <=2 S * CEFAZOLIN (CEPHALOSPORIN) UTI 4 S * CEFEPIME <=1 S * CEFTRIAXONE <=1 S * CEFUROXIME SODIUM 16 I * CIPROFLOXACIN <=0.25 S * ERTAPENEM <=0.5 S * GENTAMICIN <=1 S * IMIPENEM <=1 S * LEVOFLOXACIN <=0.12 S * NITROFURANTOIN <=16 S * TETRACYCLINE <=1 S * TOBRAMYCIN <=1 S * TRIMETHOPRIM/SULFAMETHOXAZOLE <=20 S Discharge Medications Discharge Medications Ascorbic Acid (Vitamin C) 1,000 Mg Tab.chew 1,000 MG PO DAILY (Reported) Aspirin (Aspirin) 81 Mg Tablet 81 MG PO DAILY (Reported) Clopidogrel (Clopidogrel) 75 Mg Tablet 75 MG PO DAILY Prescribed by: NEHEMIAS ROYAL MD Isosorbide MN ER (Isosorbide MN ER) 30 Mg Tab.er.24h 30 MG PO DAILY Prescribed by: NEHEMIAS ROYAL MD Losartan Potassium (Cozaar) 25 Mg Tablet 25 MG PO DAILY Prescribed by: NEHEMIAS ROYAL MD Metoprolol Succinate ER (Metoprolol Succinate ER) 25 Mg Tab.er.24h 50 MG PO BID Prescribed by: NEHEMIAS ROYAL MD Metoprolol Tartrate (Metoprolol Tartrate) 25 Mg Tablet 12.5 MG PO BID Prescribed by: ANTONI DESOUZA MD Warfarin Sodium (Coumadin) 2.5 Mg Tablet 2.5 MG PO ONCE@17 Prescribed by: NEHEMIAS ROYAL MD As needed Furosemide (Furosemide) 40 Mg Tablet 40 MG PO DAILY PRN PRN leg swelling Prescribed by: NEHEMIAS ROYAL MD Additional med instructions Please note that there are several medicines given for weakened heart conditions : continue these medicine at home Imdur 30mg daily Losartan 25mg daily metoprolol ER 50mg twice a day clopidogrel 75mg daily Coumadin as directed, blood thinner given your blood clots in your lungs. Followup Plan Disposition: home with home health Follow-up plan Please follow up with your doctor in one week. Discharge Diet: Low fat, Low Sodium, Heart Healthy Discharge Activity: No restrictions Patient Instructions You were hospitalized with multiple coniditions such as heart failure, Pneumonia , urinary tract infection. You were started new regimen for this coniditions, tolerated well. Please note that you need to follow up with your primary doctor to adjust medicines. Please note that your risks of bleeding is significantly high with Coumadin as you are taking aspirin, plavix. If you notice any signs of bloody stools, black stools, Please discontinued Coumadin first and hold aspirin and plavix, return to Emergency Room urgently Follow-up Provider: Manny Montana MD Follow-up with PCP in: 1 week Time spent 65min Nehmeias Royal MD Nov 06, 2016 13:24
--- NOTE | 2016-11-06 13:43 | PATH ---
SURGICAL PATHOLOGY Attending Physician:Ela Woods M.D. CASE STATUS: Signed Out PATIENT NAME: MIKI SAENZ I. PID: [id number] : 1930 DATE COLLECTED:11/01/2016 00:00 SPECIMEN: Pleural Fluid CLINICAL HISTORY: Pleural Fluid ICD-10 code not given FINAL DIAGNOSIS: LEFT PLEURAL FLUID: NEGATIVE FOR MALIGNANT CELLS. MESOTHELIAL CELLS AND CHRONIC INFLAMMATORY CELLS ARE PRESENT. ICD10 CODE J90 GROSS DESCRIPTION: Received fresh on 11/04/2016 is approximately 50 cc of clear yellow fluid. Prepared are one cell block, one ThinPrep and one Cytospin slides. Vo ICD-9 CODES: CPT CODES: 1: 03732, 52659, 95680 Electronically Signed Out Alberto Valdovinos MD [facility] [address], [place] [address] Technical component performed at [facility], [facility] [address], [place], [address]
--- NOTE | 2016-11-06 13:44 | NUR ---
Social Work: Discharge Data: Pt is on day 10 of hospitalization. EMR reviewed, pt discussed in rounds and medically ready to discharge today. Pt to [facility] via wheelchair van. Family to private . SW updated RN and family. All updated and agreeable to plan. No further needs assessed. Assessment: Pt with dementia who would benefit from SNF. Plan: Pt will either go to [facility] private pay via wheelchair van. No further needs assessed. ELAINE Elaine
== END 2016-11-06 10:53 | DRG 291 ==
LOC: SED 06:42 → MPC 10:08
PROVIDERS: ADMIT Family Medicine; ATTEND Family Medicine
PROC: 0W9B3ZX Drainage of Left Pleural Cavity, Percutaneous Approach, Diagnostic (ICD-10-PCS; principal; 2016-11-01)
PROC: 4A033R1 Measurement of Arterial Saturation, Peripheral, Percutaneous Approach (ICD-10-PCS; 2016-11-01)
DX: I50.23 Acute on chronic systolic (congestive) heart failure (principal); J18.9 Pneumonia, unspecified organism; I26.99 Other pulmonary embolism without acute cor pulmonale; N39.0 Urinary tract infection, site not specified; J90 Pleural effusion, not elsewhere classified; I47.1 Supraventricular tachycardia; F03.90 Unspecified dementia, unspecified severity, without behavioral disturbance, psychotic disturbance, mood disturbance, and anxiety; I25.2 Old myocardial infarction; I10 Essential (primary) hypertension; R53.1 Weakness; Z66 Do not resuscitate; I25.10 Atherosclerotic heart disease of native coronary artery without angina pectoris; Z95.5 Presence of coronary angioplasty implant and graft; I25.5 Ischemic cardiomyopathy; B96.20 Unspecified Escherichia coli [E. coli] as the cause of diseases classified elsewhere

== ENCOUNTER 2017-01-11 15:00 | Observation (INO) | payer MEDICARE ==
[~2017-01-11 15:00] MED LIST changes: -ATOR40TA69 PO; +FURO40TA4 PO; -LISI-571 PO; +LOSA25TA2 PO; -LUTE20TA PO; +METO25TA99 PO; -MULT1CAP33 PO; +WARF2.5T PO
[2017-01-11 15:06] VITALS: BP 119/76; PULSE 93; RESP 40; O2SAT 85
--- NOTE | 2017-01-11 15:12 | ED.REPORT ---
HPI-General Illness Date of Service Jan 11, 2017 ED Provider: The patient is an 86 year old female with history of dementia, coronary artery disease, SVT, and hypertension, who was brought to the emergency department by EMS due to family request. Per medics the patient has recently became increasingly lethargic. The patient is DNR with comfort measures only. She is unable to provide any history at this time due to her mental status. The patient 's family is not present at bedside during initial interview. Nursing Notes Stated Complaint: LETHARGY Chief Complaint: General Complaint Nursing Notes Reviewed: Yes Allergies: Coded Allergies: Penicillins (Verified Allergy, Unknown, 12/02/14) Sulfa (Sulfonamide Antibiotics) (Verified Allergy, Unknown, UNKNOWN, ) Scheduled Ascorbic Acid (Vitamin C) 1,000 Mg Tab.chew 1,000 MG PO DAILY Aspirin (Aspirin) 81 Mg Tablet 81 MG PO DAILY Atorvastatin (Lipitor) 40 Mg Tablet 40 MG PO HS Clopidogrel (Clopidogrel) 75 Mg Tablet 75 MG PO DAILY Isosorbide MN ER (Isosorbide MN ER) 30 Mg Tab.er.24h 30 MG PO DAILY Losartan Potassium (Cozaar) 25 Mg Tablet 25 MG PO DAILY Metoprolol Succinate ER (Metoprolol Succinate ER) 25 Mg Tab.er.24h 50 MG PO BID Warfarin Sodium (Coumadin) 2.5 Mg Tablet 2.5 MG PO ONCE@17 Scheduled PRN Acetaminophen (Acetaminophen) 325 Mg Tablet 650 MG PO Q4H PRN PRN For Pain Furosemide (Furosemide) 40 Mg Tablet 40 MG PO DAILY PRN PRN leg swelling General Time Seen by MD: 15:11 Chief Complaint Other (increased lethargy) Hx Obtained From: EMS Unable to Obtain Hx: Patient condition, Mental status Arrived By: Ambulance Sudden in Onset?: No Onset Occurred: More than a week ago... Symptom Duration: Since onset Recent Healthcare: No recent hospitalization Similar Sx Previous: Yes Past Medical History Past Medical History Dementia Anemia ST-segment elevation myocardial infarction April 2016 N STEMI August 2016 SVT hypertension Thrombocytopenia Past Surgical History Reports: Angioplasty, Cholecystectomy, Hysterectomy Family History Noncontributory Smoking History Never Smoker Social History See palliative care consult August 2016, DO NOT RESUSCITATE/DO NOT RESUSCITATE Alcohol Use: Denies alcohol use Drug Use: Denies drug use Other Social History: Good social support, Local resident Ambulatory Status Independent Review of Systems Unable to Obtain ROS Patient condition, Mental status Physical Exam Vital Signs Vital Signs Date Time Temp Pulse Resp B/P Pulse Ox O2 Delivery O2 Flow Rate FiO2 01/11/17 15:06 93 40 119/76 85 Room Air Initial VS: Reviewed Neck: Supple Alertness: Positive: Responds to pain stimuli (verbally only) GCS: 4 Head / Eyes: Normocephalic Sunken eyes. Pupils 2 mm and symmetric. ENT: Airway patent Mouth: Positive: Mucous membranes dry Respiratory / Chest: No respiratory distress Rales / Rhonchi: Positive: Rales diffuse Breathing spontaneously. Cardiovascular: Heart rate NL, Regular rhythm Abdomen: Soft LOWER EXTREMITIES: Bruising to left leg. Left calf is slightly larger than right. Color / Condition: Positive: Skin turgor poor Mental Status: Positive: Responds to painful stim (verbally only) GCS: 4 Re-Eval/Medical Decision Med Decision/Clinical Course Elderly female with failure to thrive. Family is very sure that they do not want any diagnostic evaluation and want her on hospice care. However, the level of care has exceeded with the patient is able to at home. Attempts were made to secure other options. Refer to the social work notes for that. Ultimately the patient is admitted in plan of hospice care. Source of Hx: Old records, EMS Time of Eval: 15:32 Re-Evaluation/Progress Note: Spoke with the patient's about her case and condition. Her caregiver cannot handle the patient anymore. She needs to be changed frequently and made comfortable with a new brief. He has already contacted [facility]. Time of Eval: 16:55 Re-Evaluation/Progress Note: The patient's is now at bedside. The patient's mental status seemed to drastically decline last night. Her called [place] last night and said the patient would be able to go to the hospital then go to [place]. He also spoke to hospice and they are unable to see the patient until Friday. Discussed options for disposition with the patient's . He would like the patient to stay here until she is able to get into hospice. He does not feel that it is safe to have her at home. He is aware with risk of cost of hospitalization. Consultation #1: Consulted With: fish house worker Call Returned at: 15:36 Marble Machine Tender: Will see patient Consultation #2: Consulted With: fish house worker Call Returned at: 17:06 Note: Discussed the patient's case and options for disposition. Consultation #3: Referral / Consult Name: Nate Gonzales MD Consulted With: Hospitalist Requested Call at: 17:45 Call Returned at: 18:04 Marble Machine Tender: Accepts admit Note: Will have night hospitalist take over Counseled Regarding: Diagnosis, Need for admission Discharge & Departure Primary Impression: Failure to thrive Failure to thrive age range: in adult Qualified Code: R62.7 - Adult failure to thrive Disposition: ADMITTED TO HOSPITAL Discharge Condition All VS Reviewed: Yes Condition: Stable Referrals: Manny Montana MD (PCP) Scribe Attestation Portions of this note were transcribed by Pattie Carranza. I, Dr. He personally performed the history, physical exam and medical decision-making; I reviewed and confirmed the accuracy of the information in the transcribed note. Signed by: Shanell Portillo, 01/11/2017 at 1800. copies to: Manny Montana MD, Timothy S DO Jan 11, 2017 15:12 Pattie Carranza Jan 11, 2017 15:34
[2017-01-11] MEDS ORDERED: LIP40 PO (17:22)
[2017-01-11] MEDS ORDERED: ACET325T51 PO (17:25)
--- NOTE | 2017-01-11 17:35 | NUR ---
Case Management: COMPANY SECRETARY referral D: Pt's is unable to care for pt at home, placement at [facility] with hospice is pending. He would like for pt to be admitted until all arrangements can be made. I did discuss that it is unlikely that his insurance will pay for this admission. He did sign Notice of nonpayment. I did also have him sign a KHAN in the event his insurance will pay, but again, he is aware that this is unlikely. I did also give him the estimated hourly cost of admission here.
[2017-01-11] MEDS ORDERED: ASCO-294 PO (18:25)
[2017-01-11] MEDS ORDERED: [UNRECOGNIZED DRUG - CODE] PO (18:26)
[2017-01-11 18:56] VITALS: BP 137/67; PULSE 87; RESP 20; O2SAT 99
--- NOTE | 2017-01-11 19:00 | NUR ---
Admit Received report from off going RN Kevin, patient arrived via tech accompanied by Royce 2 person slide to transfer,Dx comfort care, patient non-verbal moans w/transfer and portioning g changes, skin check done with Joann BO, no breakdown some bruises and redness to coccyx placed side lying w/pillows
--- NOTE | 2017-01-12 03:30 | PCM.HPMED ---
Subjective Date of Service Jan 12, 2017 Primary Provider: Admitting Physician: Angie Lobato DO Primary Care Physician: Manny Montana MD Attending Physician: Angie Lobato DO Admit Status: From the Emergency Department Chief Complaint: unable to receive care History of Present Illness: 85yoF with a history of dementia, anemia, hypertension, thrombocytopenia, STEMI brought to [facility] ED per request due to worsening mental status and increased need for care which is unavailable at home. As per documentation, patient has worsening mentation over the past 24-48 hours. Her current caregiver is unable to keep up with the increasing needs for care at home. Patient's requested hospitalization until she is able to complete hospice intake. She is comfort measures only and family wishes no medical workup as per ED documentation. Family is unavailable on admission. Review of Systems: unable to obtain due to advanced dementia Allergies Coded Allergies: Penicillins (Verified Allergy, Severe, SWELLING, 01/11/17) Sulfa (Sulfonamide Antibiotics) (Verified Allergy, Severe, SWELLING, ) Home Medications Scheduled Ascorbic Acid (Vitamin C) 1,000 Mg Tab.chew 1,000 MG PO DAILY Aspirin (Aspirin) 81 Mg Tablet 81 MG PO DAILY Atorvastatin (Lipitor) 40 Mg Tablet 40 MG PO HS Clopidogrel (Clopidogrel) 75 Mg Tablet 75 MG PO DAILY Isosorbide MN ER (Isosorbide MN ER) 30 Mg Tab.er.24h 30 MG PO DAILY Losartan Potassium (Cozaar) 25 Mg Tablet 25 MG PO DAILY Metoprolol Succinate ER (Metoprolol Succinate ER) 25 Mg Tab.er.24h 50 MG PO BID Warfarin Sodium (Coumadin) 2.5 Mg Tablet 2.5 MG PO ONCE@17 Scheduled PRN Acetaminophen (Acetaminophen) 325 Mg Tablet 650 MG PO Q4H PRN PRN For Pain Furosemide (Furosemide) 40 Mg Tablet 40 MG PO DAILY PRN PRN leg swelling PMH Dementia Anemia ST-segment elevation myocardial infarction hypertension Thrombocytopenia Surgical History Angioplasty Cholecystectomy Hysterectomy Family History Father and sister with heart issues Social History Occupation: retired Hx Alcohol Use: No Hx Substance Use: No Hx Tobacco Use: No Smoking Status: Never Smoker Exam Vital Signs Vital Sign - Last Date Time Temp Pulse Resp B/P Pulse Ox O2 Delivery O2 Flow Rate FiO2 01/11/17 19:30 Supplement Oxygen 01/11/17 18:56 87 20 137/67 99 Exam General: not Alert, mild acute Distress, tremulous, non-verbal Assessment & Plan 85yoF with a history of dementia, anemia, hypertension, thrombocytopenia, STEMI brought to [facility] ED per request due to worsening mental status and increased need for care which is unavailable at home. Failure to thrive, acute on chronic, POA -patient will be transitioning to comfort care, hospice -hospice intake will be 01/13 - consult in am -no labs or medical evaluation at this time -home medications held due to comfort care -no mIVF given hospice patient Pain Evaluation: Adequate Pain Control GI Prophylaxis: Not indicated VTE Prophylaxis: Other (comfort care patient) Resuscitation Status: DNR/DNI:Do Not Resuscitate/Intubate Angie Lobato DO Jan 12, 2017 03:30 increased need for care which is unavailable at home. Failure to thrive, acute on chronic, POA -patient will be transitioning to comfort care, hospice -hospice intake will be 01/13 - consult in am -no labs or medical evaluation at this time -home medications held due to comfort care -no mIVF given hospice patient Pain Evaluation: Adequate Pain Control GI Prophylaxis: Not indicated VTE Prophylaxis: Other (comfort care patient) Resuscitation Status: DNR/DNI:Do Not Resuscitate/Intubate Angie Lobato DO Jan 12, 2017 03:30
[2017-01-12] MEDS ORDERED: Polyethylene Glycol (PEG) 17 Gm Powder PO PRN ×2 (05:20→12:35)
[2017-01-12] MEDS ORDERED: Alum-Mag Hydrox-Simeth 30 mL Suspension PO PRN ×2 (05:20→12:35)
[2017-01-12] MEDS ORDERED: Ondansetron 2 mg/mL 2 mL Inj IVPUSH PRN ×2 (05:20→12:35)
[2017-01-12] MEDS: Morphine 20 mg/mL Oral Syringe SL/PO PRN ×4 (06:17→22:04)
[2017-01-12 10:50] VITALS: BP 154/81; PULSE 100; RESP 20; O2SAT 98
--- NOTE | 2017-01-12 11:36 | NUR ---
Comfort care Hospitalist Dr. davison at bed side and spouse of patient speaking to hospitalist. PRN Morphine given as ordered with effective result for patient comfort and restlessness. Vital signs BP 154/81, pulse 100, RR20, Oxygen 2L NC 98% and afebrile. Continue to monitor for pain, comfort, and restlesness.
[2017-01-12 13:04] VITALS: BP 133/92; PULSE 92; RESP 21; O2SAT 97
--- NOTE | 2017-01-12 13:52 | NUR ---
comfort care, bed rest, non verbal. Addendum: 01/12/17 at 1358 by ARIANE GALVAN RN Amended: Links added.
--- NOTE | 2017-01-12 14:06 | NUR ---
Case Management D: I spoke with pt's daughter Oma. I wanted to make sure she was aware that pt had been changed to IP status since I had spoken with her on Friday when she was observation. I did also discuss that MARIBEL had been signed by pt, and that being Inpatient status allows the discharge to be appealed. Per Oma, pt wants to go home and is doing better. Addendum: 01/12/17 at 1412 by LADARIUS MARIE SS Ignore this note, written on wrong pt
--- NOTE | 2017-01-12 15:25 | PCM.PNMED ---
Subjective Date of Service Jan 12, 2017 Subjective The patient is not following any commands and is nonverbal. She is resting comfortably lying supine in bed. Exam Vital Signs Vital Sign - Last Date Time Temp Pulse Resp B/P Pulse Ox O2 Delivery O2 Flow Rate FiO2 01/12/17 13:04 36.7 92 21 133/92 97 Nasal Cannula 2.00 Exam General: The patient is comfortable lying supine in bed. She is nonverbal and is not following commands. HEENT: Head is atraumatic and normocephalic. Eyes: Pupils are equally round and reactive to light and accommodation. Extraocular muscles are intact. Sclera are white, anicteric. Subconjunctival mucosa is pink. Ears and nose are unremarkable. Oropharynx: There is no mucosal lesions, there is no thrush, there is no pharyngitis. Neck: Is supple, there are no nodes, or masses or tenderness. Chest: Is clear to auscultation and percussion. Other than some upper airway congestion, there are no rales, rhonchi, wheezes or rubs. Heart: There is slight tachycardia, rhythm is regular. There is no new murmur, rub or gallop. Abdomen: Good bowel sounds are present. Abdomen is soft, nontender, no organomegaly or masses were appreciated. Extremities: Are symmetrical and well perfused. There is no edema, there is no cellulitis, no rash. Neurologic: There are no obvious focal neurological deficits noted. As patient is in discomfort careful neurological exam was not performed. Patient is nonverbal and does not follow any commands. Patient has a tremor. Psychiatric: Patients mood is calm and shows no sign of agitation. She appears quite comfortable. Genital: Deferred Rectal: Deferred Assessment & Plan The patient is a 85yoF with a history of dementia, anemia, hypertension, thrombocytopenia, STEMI brought to [facility] ED per request due to worsening mental status and increased need for care which is unavailable at home. # Failure to thrive, acute on chronic, present on admission -The patient will be transitioning to comfort care and then hospice -The plan for hospice intake will be 01/13 -oil well services superintendent has been consulted -We will continue with no labs or medical evaluation at this time -The patient's home medications held due to comfort care -There are no plans to give IV fluids # History of Acute on chronic systolic heart failure, present at the time of admission. Active and still problematic. Patient's BNP has been as high as 30, 000 in the recent past -- Echocardiogram in August 2016 showed 25 % EF # History of Pulmonary emboli --The patient's states that Dr. Montana has discontinued the patient's warfarin at home # History of CAD: # History of SVT: Disposition: The patient's Royce agrees with the above plans. He agrees to the patient getting morphine for comfort care which has been ordered. Patient will remain a DO NOT RESUSCITATE DO NOT INTUBATE and remain comfort care while awaiting hospice services. Pain Evaluation: Adequate Pain Control GI Prophylaxis: Not indicated VTE Prophylaxis: Other (comfort care patient) Resuscitation Status: DNR/DNI:Do Not Resuscitate/Intubate (The patient is comfort care only.) Nate Gonzales MD Jan 12, 2017 15:25
--- NOTE | 2017-01-12 16:54 | NUR ---
Morphine PRN morphine given as ordered for general pain, discomfort, and restlessness. spouse and family at bed side. continue to monitor for pain, safety and comfort.
--- NOTE | 2017-01-12 17:15 | NUR ---
Social Work Note: Initial Assessment Data& Assessment: EMR reviewed. Angie Quintero is a 86 year old female admitted on 01/11/2017 for failure to thrive. Pt has [facility] and sees Manny Montana MD for primary care. Pt lives at home in [place] with her with [employer]. Pt owns a walker but her condition has recently declined and pt is now unresponsive. Pt has previous hx with [facility] and [facility]. Pt does not have LTC insurance or VA benefits. SW requested DPOA/Advance Directive paperwork. Pt is followed by [facility] in the community and had a planned opening date of today at 1:00p.m. with moving in to [facility]. Pt became overwhelmed by the change in pt condition and brought her to the ED. Pt was unaware that pt is unable to open with Hospice if she is in the hospital. SW spoke with Brady from [facility], Violet from Hospice and pt who also communicated with staff members from [facility] today. Pt has been rescheduled with Hospice to open tomorrow at [facility] at 12:00p.m, noon, with an anticipated discharge tomorrow morning at 11:00am via BLS. SW confirmed this plan with Violet from [facility]. SW confirmed this plan with Wm from [facility] who confirmed that there is a hospital bed available for pt in the room previously picked out by pt and pt . Pending medical stability for transport, pt will require BLS transportation as pt is unable to sit up unsupported, is unresponsive and does not have any trunk strength at this time. Pt understands that if his insurance does not agree that pt meets criteria for BLS transportation, he would be liable for the bill. SW to follow up with MD regarding pt condition tomorrow morning and ability to discharge by 11:00am to [facility] with Hospice to open at 12:00p.m. SW to update Hospice and [facility] on pt condition tomorrow morning when possible and to confirm discharge plan. 12:00a.m is the only available opening date for Hospice tomorrow, if pt is unable to discharge and transfer to [facility] tomorrow morning, SW to update Hospice in order to have pt opening date rescheduled. Pt denies any other needs. Pt , [facility] all updated and agreeable to plan. SW to continue to follow. Plan: Anticipated discharge tomorrow morning at 11:00am via BLS with Hospice to open at 12:00p.m pending medical stability and readiness for discharge. All updated and agreeable to plan. SW to continue to follow. ELAINE Sun Addendum: 01/12/17 at 1726 by STEFANO BRUCE Amended: Links added.
[2017-01-12 20:10] VITALS: RESP 19
--- NOTE | 2017-01-12 21:30 | NUR ---
Discussion with family Family had questions on NPO status with no IV fluids. Prior shift had Dr. Gonzales come in and talk to , now daughter has same question and unclear as well. Just before shift change, charge nurse had paged Dr. Gonzales to come in. This nurse explained gentle process and lack of need for oral fluids on an exhausted body, that the oral care we were providing, turns, and morphine if needed was best care and that hospice tomorrow will also be able to explain better the process, expectations and care and support for patient and family. Dr. Gonzales arrived and further helped to relieve family of their concerns. Family stayed at bedside until approx. 2100, then left for the evening. would like to be called if patient passes overnight.
[2017-01-12 22:04] VITALS: RESP 26
--- NOTE | 2017-01-12 22:17 | NUR ---
Comfort care Increased breathing rate mid 20s with one pause for 5sec, and right hand/arm tremors, slight shaking with legs and left arm. Ordered from pharmacy and administered SL Morphine as ordered. Q2hr turns and oral care continues. Will reassess breath and medication response. Addendum: 01/12/17 at 2346 by CAMRON LUNA RN Approx 90min after morphine dosage, pt still shaking/tremors and started with mild coughing/groaning. Another dose of morphine ordered and administered. Addendum: 01/13/17 at 0108 by CAMRON LUNA RN At reassessment, patients breathing pattern stabilized and approx 20 breaths per minute, less apenic episodes, no groaning or moaning. Warm blankets helped with shaking/tremors in upper limbs. Frequent checks and turns continue. Addendum: 01/13/17 at 0613 by CAMRON LUNA RN Morphine given PRN throughout night when shaking & breath rate increased. Warm blankets, massage, oral care, and a bed bath with linen change also given for comfort.
[2017-01-12 22:34] VITALS: RESP 24
[2017-01-13] VITALS (8 sets, daily range): RESP 21–29
[2017-01-13] MEDS: Morphine 20 mg/mL Oral Syringe SL/PO PRN ×10 (00:39→13:31)
--- NOTE | 2017-01-13 11:17 | NUR ---
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 PCS complete and signed. Updated SENIOR CARE ASSISTANT
--- NOTE | 2017-01-13 12:14 | NUR ---
Social Work Note: Discharge Data& Assessment: Per pt is medically stable for discharge and transport to [facility] via BLS at 1:30p.m. with Hospice to open at 2:30p.m. Angie Quintero is a 86 year old female admitted on 01/11/2017 under observation for failure to thrive. Per pt is medically stable for transport. ERASTO confirmed with Clementina from [facility] that pt's room will be ready this afternoon. ERASOT confirmed with Radha from [facility] that equipment will arrive and be set up before pt's arrival this afternoon with fruit thinner to open services at 2:30p.m. aware and agreeable to plan. SW met with pt at bedside to confirm discharge plan and assess for any unmet needs. Pt denies any other needs or questions and confirmed understanding that if Medicare disagrees that pt meets criteria for BLS transportation, he would be liable for the bill. No other discharge needs identified. All updated and agreeable to plan. Plan: Per pt is medically table for discharge and transport to [facility] via BLS at 1:30p.m. with Hospice to open at 2:30p.m. No other discharge needs identified. All updated and agreeable to plan. ELAINE Sun
--- NOTE | 2017-01-13 12:30 | PCM.DIMED ---
Discharge Instructions Date of Service Jan 13, 2017 Dates of Hospitalization Jan 11, 2017 at 18:22 Discharge Diagnosis Discharge Diagnosis End Stage CHF Diet Discharge Diet: Heart Healthy (As tolerated.) Activity Discharge Activity: No restrictions (As tolerated with assistance) Call your provider Call your provider for: Fever or Chills, Shortness of breath, Bleeding, Chest pain, Vomitting, Excessive diarrhea, Weakness (unilateral) Patient Instructions Follow-up Provider: Manny Montana MD Follow-up with PCP in: 1 week Nate Gonzales MD Jan 13, 2017 12:29
[2017-01-13] MEDS ORDERED: MORP100S5 SL/PO (12:31)
--- NOTE | 2017-01-13 13:45 | NUR ---
Discharge Pt. discharged to [place] with hospice at 1338 via BLS. Medicated with PO morphine prior to transfer. Respirations 22-25 today with periods of apnea 5-20 seconds. This has been unchanged from start of shift. Pts. spouse following BLS in separate care.
--- NOTE | 2017-01-14 01:02 | PCM.DC.MED ---
Discharge Summary Date of Service Jan 13, 2017 Dates of Hospitalization Date of Hospital Admission Jan 11, 2017 at 18:22 Date of Discharge: Jan 13, 2017 Providers: Admitting Physician: Nate Gonzales MD Primary Care Physician: Manny Montana MD Attending Physician: Nate Gonzales MD Diagnosis at Time of Discharge Diagnosis at Time of Discharge End Stage CHF Brief History Patient is an 85yo white female with a history of dementia, anemia, hypertension , thrombocytopenia, STEMI brought to [facility] ED per request due to worsening mental status and increased need for care which is unavailable at home. As per documentation, patient has worsening mentation over the past 24-48 hours. Her current caregiver is unable to keep up with the increasing needs for care at home. Patient's requested hospitalization until she is able to complete hospice intake. She is comfort measures only and family wishes no medical workup as per ED documentation. The patient was brought in under observation to the hospitalist service for further evaluation and treatment pending transfer to hospice Hospital Course The patient is a 85yoF with a history of dementia, anemia, hypertension, thrombocytopenia, STEMI brought to [facility] ED per request due to worsening mental status and increased need for care which is unavailable at home. # Failure to thrive, acute on chronic, present on admission -The patient will be transitioning to comfort care and then hospice -The plan for hospice intake will be 01/13 -visitor services specialist has been consulted -We will continue with no labs or medical evaluation at this time -The patient's home medications held due to comfort care -There are no plans to give IV fluids # History of Acute on chronic systolic heart failure, present at the time of admission. Active and still problematic. Patient's BNP has been as high as 30, 000 in the recent past -- Echocardiogram in August 2016 showed 25 % EF # History of Pulmonary emboli --The patient's states that Dr. Montana has discontinued the patient's warfarin at home # History of CAD: # History of SVT: Disposition: The patient's Royce agrees with the above plans. He agrees to the patient getting morphine for comfort care which has been ordered. Patient will remain a DO NOT RESUSCITATE DO NOT INTUBATE and remain comfort care while awaiting hospice services. Exam Vital Signs (Last) Date Time Temp Pulse Resp B/P Pulse Ox O2 Delivery O2 Flow Rate FiO2 01/13/17 12:20 22 01/13/17 09:00 Supplement Oxygen 01/12/17 13:04 36.7 92 133/92 97 2.00 Exam General: The patient is comfortable lying supine in bed. She is more responsive today and smiled appropriately and spoke appropriately and said goodbye to me when I left the room. HEENT: Head is atraumatic and normocephalic. Eyes: Pupils are equally round and reactive to light and accommodation. Extraocular muscles are intact. Sclera are white, anicteric. Subconjunctival mucosa is pink. Ears and nose are unremarkable. Oropharynx: There is no mucosal lesions, there is no thrush, there is no pharyngitis. Neck: Is supple, there are no nodes, or masses or tenderness. Chest: Is clear to auscultation and percussion. Other than some upper airway congestion, there are no rales, rhonchi, wheezes or rubs. Heart: There is slight tachycardia, rhythm is regular. There is no new murmur, rub or gallop. Abdomen: Good bowel sounds are present. Abdomen is soft, nontender, no organomegaly or masses were appreciated. Extremities: Are symmetrical and well perfused. There is no edema, there is no cellulitis, no rash. Neurologic: There are no obvious focal neurological deficits noted. As patient is in discomfort careful neurological exam was not performed. Patient is nonverbal and does not follow any commands. Patient has a tremor. Psychiatric: Patients mood is calm and shows no sign of agitation. She appears quite comfortable. Genital: Deferred Rectal: Deferred Discharge Medications Discharge Medications Ascorbate Calcium (Vitamin C) 500 Mg Tablet 1,000 MG PO QAM (Reported) Aspirin (Aspirin) 81 Mg Tablet 81 MG PO DAILY (Reported) Multivit-Min/Folic Acid/Biotin (Women Multivit W-Biotin Gummy) 200 Mcg-300 Mcg Tab.chew 1 EACH PO QAM (Reported) As needed Acetaminophen (Acetaminophen) 325 Mg Tablet 650 MG PO Q4H PRN PRN For Pain ( Reported) Morphine Sulfate Oral Concentrate (Roxanol Oral Concentrate) 100 Mg/5 Ml (20 Mg/ Ml) Solution 2 MG SL/PO Q1H PRN PRN For Pain Prescribed by: MORE GONZALES MD Followup Plan Disposition: Patient is being discharged to [facility] and is to be enrolled in hospice today. I had discussion with patient's and patient's daughter and extended family members at bedside yesterday at length and they are all in agreement with the above plan. Discharge Diet: Heart Healthy Discharge Activity: No restrictions Follow-up Provider: Manny Montana MD Follow-up with PCP in: 1 week Time spent Time spent on discharging this patient was greater than 35 minutes, over half of which was involved in counseling and coordination of care. Nate Gonzales MD Jan 14, 2017 01:02
== END 2017-01-13 13:42 | disposition home or self-care (01) ==
LOC: SED 15:00 → EDUNIT# 15:00 → EDBD 15:00 → MOC 18:22
PROVIDERS: ADMIT Internal Medicine Infectious Disease; ATTEND Internal Medicine Infectious Disease
DX: I50.22 Chronic systolic (congestive) heart failure (principal); R62.7 Adult failure to thrive; I47.1 Supraventricular tachycardia; I25.10 Atherosclerotic heart disease of native coronary artery without angina pectoris; I10 Essential (primary) hypertension; F03.90 Unspecified dementia, unspecified severity, without behavioral disturbance, psychotic disturbance, mood disturbance, and anxiety; D69.6 Thrombocytopenia, unspecified; D64.9 Anemia, unspecified; I25.2 Old myocardial infarction; Z88.0 Allergy status to penicillin; Z88.2 Allergy status to sulfonamides; Z79.82 Long term (current) use of aspirin; Z66 Do not resuscitate; Z90.710 Acquired absence of both cervix and uterus; Z86.711 Personal history of pulmonary embolism
CPT/HCPCS: 99285; G0378